=== PATIENT | male | born 1960 | race Caucasian/White ===

== ENCOUNTER 2017-04-18 21:52 | Emergency (ER) | payer BC, OTHER ==
[2017-04-18 22:15] LABS: Glucose,Whole Blood 113 mg/dL (75-99)
[2017-04-18] MEDS ORDERED: SODIUM CHLORIDE 0.9% 1,000 ML IV ONE ×2 (22:37)
--- NOTE | 2017-04-18 22:43 | ED ---
Altered Mental Status HPI - General Chief Complaint: Altered Mental Status Stated Complaint: Speech Issues, Loss of memory Time Seen by Provider: 04/18/17 22:28 Source: patient Mode of arrival: ambulatory Limitations: no limitations - History of Present Illness Initial Comments: This 57-year-old white male presents with some confusion. He states that he last remembers is leaving for work around 2:30 this afternoon. He then apparently did some work around the house but does not remember this. He states that he remembers waking up in the dark living room. He apparently text and his that he does not feel well. He apparently was quite confused. His told him to go to his brother's house but he d cannot remember where his brother lived. When he went outside he thought he lived in their old house. He did not recognize his van. He states that he is having very slow speech. He is able to get the words out but states that he has to think more about the correct words. He denies any weakness or paresthesias. He denies any chest pain, shortness of breath, abdominal pain, fevers, chills, or recent infections. He denies any drug or alcohol use. He does have a history of coronary artery disease with previous stents. He otherwise has been very healthy. He states that he was completely normal prior to this event today. He is feeling much improved at this time and is alert and oriented. No other complaints or modifying factors. - Related Data Home Medications Medication Instructions Recorded Confirmed Clopidogrel [Plavix] 75 mg PO DAILY 01/05/14 04/18/17 Enalapril [Vasotec] 5 mg PO DAILY 01/05/14 04/18/17 Atorvastatin [Lipitor] 20 mg PO DAILY 04/18/17 04/18/17 Joint Soother Otc 1 cap PO DAILY 04/18/17 04/18/17 Metoprolol Succinate (ER) [Toprol 25 mg PO DAILY 04/18/17 04/18/17 Xl] Allergies Allergy/AdvReac Type Severity Reaction Status Date / Time influenza virus vaccine, Allergy Unknown Verified 04/18/17 22:39 specific pneumococcal vaccine Allergy Unknown Verified 04/18/17 22:39 Review of Systems ROS Statement: Those systems with pertinent positive or pertinent negative responses have been documented in the HPI. ROS Other: All systems not noted in ROS Statement are negative. Past Medical History Past Medical History: Hyperlipidemia, Hypertension, Myocardial Infarction ([place]) Additional Past Medical History / Comment(s): [place] History of Any Multi-Drug Resistant Organisms: None Reported Past Surgical History: Heart Catheterization With Stent, Tonsillectomy Additional Past Surgical History / Comment(s): coronary stents x4 Past Psychological History: No Psychological Hx Reported Smoking Status: Former smoker Past Alcohol Use History: None Reported Past Drug Use History: None Reported General Exam - General Exam Comments Initial Comments: GENERAL: The patient is well nourished and well hydrated. VITAL SIGNS: Heart rate, blood pressure, respiratory rate reviewed as recorded in nurse's notes. EYES: Pupils are round and reactive. Extraocular movements are intact. No conjunctival / lid redness or swelling. ENT: No external evidence of injury, swelling, or ecchymosis. Airway is patent. Throat is clear. NECK: Nontender. No swelling or evidence of injury. No subcutaneous emphysema. Trachea is midline. No thyroid mass. HEART: Regular rate and rhythm. Good peripheral pulses. LUNGS/CHEST: Breath sounds clear and equal bilaterally. No rales, rhonchi, or wheezes. No ecchymosis, subcutaneous emphysema, or tenderness. ABDOMEN: Abdomen soft without tenderness. No palpable masses or organomegaly. No peritoneal signs. No abdominal wall swelling or ecchymosis. EXTREMITIES: No extremity tenderness. Normal muscle tone and function. No thoracolumbar tenderness. NEUROLOGIC: Sensation is grossly intact. Cranial nerve exam reveals face is symmetrical, tongue is midline, speech is clear. There is no lateralized weakness. SKIN: No abrasions or ecchymosis is noted. No induration or masses noted. PSYCHIATRIC: Alert and oriented. Appropriate behavior and judgment. Limitations: no limitations Course Vital Signs 04/18/17 04/18/17 04/19/17 22:00 23:39 00:55 Temperature 97.9 F 97.1 F L Pulse Rate 73 67 60 Respiratory 18 18 16 Rate Blood Pressure 118/73 119/83 111/68 O2 Sat by Pulse 98 98 98 Oximetry Medical Decision Making - Medical Decision Making The patient was seen and examined. All diagnostics were reviewed. The EKG shows a normal sinus rhythm at a rate of 66. There is no acute ST-T wave changes identified. The NM intervals 190, QRS duration is 84, and the QTc interval is 387. An IV is started and he is hydrated. The significant amount of lab work is completed and this is all essentially within normal limits. The patient also had a chest x-ray which did not show any acute abnormalities. The urine and urine drug screen are negative. Computed tomography scan of the brain did not show any acute abnormalities. It does show a degree of sinusitis and possible mastoiditis. He does not have any tenderness over the sinuses or his mastoids. He is feeling significantly improved with IV fluids. He states that all his symptoms have resolved on recheck. Exact cause of his confusion and amnesia to the event are not definitively determined. Is offered admission to the hospital for further observation and neurology consult but would prefer to be discharged home at this point. Return parameters are discussed. - Lab Data Result diagrams: 04/18/17 22:30 04/18/17 22:30 Lab Results 04/18/17 04/18/17 04/18/17 Range/Units 22:14 22:30 22:30 WBC 4.5 (3.8-10.6) k/uL RBC 5.01 (4.30-5.90) m/uL Hgb 15.5 (13.0-17.5) gm/dL Hct 47.0 (39.0-53.0) % MCV 93.9 (80.0-100.0) fL MCH 30.9 (25.0-35.0) pg MCHC 32.9 (31.0-37.0) g/dL RDW 13.4 (11.5-15.5) % Plt Count 166 (150-450) k/uL Neutrophils % 59 % Lymphocytes % 23 % Monocytes % 10 % Eosinophils % 5 % Basophils % 1 % Neutrophils # 2.7 (1.3-7.7) k/uL Lymphocytes # 1.0 (1.0-4.8) k/uL Monocytes # 0.5 (0-1.0) k/uL Eosinophils # 0.2 (0-0.7) k/uL Basophils # 0.1 (0-0.2) k/uL PT (9.0-12.0) sec INR (<1.2) APTT (22.0-30.0) sec Sodium 138 (137-145) mmol/L Potassium 4.2 (3.5-5.1) mmol/L Chloride 105 (98-107) mmol/L Carbon Dioxide 24 (22-30) mmol/L Anion Gap 9 mmol/L BUN 17 (9-20) mg/dL Creatinine 0.90 (0.66-1.25) mg/dL Est GFR (MDRD) Af Amer >60 (>60 ml/min/1.73 sqM) Est GFR (MDRD) Non-Af >60 (>60 ml/min/1.73 sqM) Glucose 112 H (74-99) mg/dL POC Glucose (mg/dL) 113 H (75-99) mg/dL POC Glu Clinical Psychology Professor ID Amina Pemberton Calcium 9.3 (8.4-10.2) mg/dL Phosphorus 2.8 (2.5-4.5) mg/dL Magnesium 2.0 (1.6-2.3) mg/dL Total Bilirubin 0.5 (0.2-1.3) mg/dL AST 21 (17-59) U/L ALT 41 (21-72) U/L Alkaline Phosphatase 99 (38-126) U/L Ammonia (<30) umol/L Total Protein 6.5 (6.3-8.2) g/dL Albumin 4.1 (3.5-5.0) g/dL TSH 1.620 (0.465-4.680) mIU/L Urine Color Urine Appearance (Clear) Urine pH (5.0-8.0) Ur Specific Taylor (1.001-1.035) Urine Protein (Negative) Urine Glucose (UA) (Negative) Urine Ketones (Negative) Urine Blood (Negative) Urine Nitrite (Negative) Urine Bilirubin (Negative) Urine Urobilinogen (<2.0) mg/dL Ur Leukocyte Esterase (Negative) Urine Opiates Screen (NotDetected) Ur Oxycodone Screen (NotDetected) Urine Methadone Screen (NotDetected) Ur Propoxyphene Screen (NotDetected) Ur Barbiturates Screen (NotDetected) U Tricyclic Antidepress (NotDetected) Ur Phencyclidine Scrn (NotDetected) Ur Amphetamines Screen (NotDetected) U Methamphetamines Scrn (NotDetected) U Benzodiazepines Scrn (NotDetected) Urine Cocaine Screen (NotDetected) U Marijuana (THC) Screen (NotDetected) 04/18/17 04/18/1704/18/17 Range/Units 22:30 22:30 23:00 WBC (3.8-10.6) k/uL RBC (4.30-5.90) m/uL Hgb (13.0-17.5) gm/dL Hct (39.0-53.0) % MCV (80.0-100.0) fL MCH (25.0-35.0) pg MCHC (31.0-37.0) g/dL RDW (11.5-15.5) % Plt Count (150-450) k/uL Neutrophils % % Lymphocytes % % Monocytes % % Eosinophils % % Basophils % % Neutrophils # (1.3-7.7) k/uL Lymphocytes # (1.0-4.8) k/uL Monocytes # (0-1.0) k/uL Eosinophils # (0-0.7) k/uL Basophils # (0-0.2) k/uL PT 11.3 (9.0-12.0) sec INR 1.1 (<1.2) APTT 23.5 (22.0-30.0) sec Sodium (137-145) mmol/L Potassium (3.5-5.1) mmol/L Chloride (98-107) mmol/L Carbon Dioxide (22-30) mmol/L Anion Gap mmol/L BUN (9-20) mg/dL Creatinine (0.66-1.25) mg/dL Est GFR (MDRD) Af Amer (>60 ml/min/1.73 sqM) Est GFR (MDRD) Non-Af (>60 ml/min/1.73 sqM) Glucose (74-99) mg/dL POC Glucose (mg/dL) (75-99) mg/dL POC Glu Clinical Psychology Professor ID Calcium (8.4-10.2) mg/dL Phosphorus (2.5-4.5) mg/dL Magnesium (1.6-2.3) mg/dL Total Bilirubin (0.2-1.3) mg/dL AST (17-59) U/L ALT (21-72) U/L Alkaline Phosphatase (38-126) U/L Ammonia 18 (<30) umol/L Total Protein (6.3-8.2) g/dL Albumin (3.5-5.0) g/dL TSH (0.465-4.680) mIU/L Urine Color Urine Appearance (Clear) Urine pH (5.0-8.0) Ur Specific Taylor (1.001-1.035) Urine Protein (Negative) Urine Glucose (UA) (Negative) Urine Ketones (Negative) Urine Blood (Negative) Urine Nitrite (Negative) Urine Bilirubin (Negative) Urine Urobilinogen (<2.0) mg/dL Ur Leukocyte Esterase (Negative) Urine Opiates Screen (NotDetected) Ur Oxycodone Screen (NotDetected) Urine Methadone Screen (NotDetected) Ur Propoxyphene Screen (NotDetected) Ur Barbiturates Screen (NotDetected) U Tricyclic Antidepress (NotDetected) Ur Phencyclidine Scrn (NotDetected) Ur Amphetamines Screen (NotDetected) U Methamphetamines Scrn (NotDetected) U Benzodiazepines Scrn (NotDetected) Urine Cocaine Screen (NotDetected) U Marijuana (THC) Screen (NotDetected) 04/18/17 Range/Units 23:44 WBC (3.8-10.6) k/uL RBC (4.30-5.90) m/uL Hgb (13.0-17.5) gm/dL Hct (39.0-53.0) % MCV (80.0-100.0) fL MCH (25.0-35.0) pg MCHC (31.0-37.0) g/dL RDW (11.5-15.5) % Plt Count (150-450) k/uL Neutrophils % % Lymphocytes % % Monocytes % % Eosinophils % % Basophils % % Neutrophils # (1.3-7.7) k/uL Lymphocytes # (1.0-4.8) k/uL Monocytes # (0-1.0) k/uL Eosinophils # (0-0.7) k/uL Basophils # (0-0.2) k/uL PT (9.0-12.0) sec INR (<1.2) APTT (22.0-30.0) sec Sodium (137-145) mmol/L Potassium (3.5-5.1) mmol/L Chloride (98-107) mmol/L Carbon Dioxide (22-30) mmol/L Anion Gap mmol/L BUN (9-20) mg/dL Creatinine (0.66-1.25) mg/dL Est GFR (MDRD) Af Amer (>60 ml/min/1.73 sqM) Est GFR (MDRD) Non-Af (>60 ml/min/1.73 sqM) Glucose (74-99) mg/dL POC Glucose (mg/dL) (75-99) mg/dL POC Glu Clinical Psychology Professor ID Calcium (8.4-10.2) mg/dL Phosphorus (2.5-4.5) mg/dL Magnesium (1.6-2.3) mg/dL Total Bilirubin (0.2-1.3) mg/dL AST (17-59) U/L ALT (21-72) U/L Alkaline Phosphatase (38-126) U/L Ammonia (<30) umol/L Total Protein (6.3-8.2) g/dL Albumin (3.5-5.0) g/dL TSH (0.465-4.680) mIU/L Urine Color Yellow Urine Appearance Clear (Clear) Urine pH 6.0 (5.0-8.0) Ur Specific Taylor 1.017 (1.001-1.035) Urine Protein Negative (Negative) Urine Glucose (UA) Negative (Negative) Urine Ketones Negative (Negative) Urine Blood Negative (Negative) Urine Nitrite Negative (Negative) Urine Bilirubin Negative (Negative) Urine Urobilinogen <2.0 (<2.0) mg/dL Ur Leukocyte Esterase Negative (Negative) Urine Opiates Screen Not Detected (NotDetected) Ur Oxycodone Screen Not Detected (NotDetected) Urine Methadone Screen Not Detected (NotDetected) Ur Propoxyphene Screen Not Detected (NotDetected) Ur Barbiturates Screen Not Detected (NotDetected) U Tricyclic Antidepress Not Detected (NotDetected) Ur Phencyclidine Scrn Not Detected (NotDetected) Ur Amphetamines Screen Not Detected (NotDetected) U Methamphetamines Scrn Not Detected (NotDetected) U Benzodiazepines Scrn Not Detected (NotDetected) Urine Cocaine Screen Not Detected (NotDetected) U Marijuana (THC) Screen Not Detected (NotDetected) Disposition Clinical Impression: Confusion Disposition: HOME SELF-CARE Condition: Good Instructions: Altered Mental Status (ED) Referrals: Hunter Campbell MD [Primary Care Provider] - 1-2 days Time of Disposition: 01:02
[2017-04-18 22:52] LABS: Basophils # (A) 0.1 k/uL (0-0.2); Basophils % (A) 1 %; CH 32.2; CHCM 34.5; Eosinophils # (A) 0.2 k/uL (0-0.7); Eosinophils % (A) 5 %; HDW 2.34; HGB 15.5 gm/dL (13.0-17.5); Luc # (Auto) 0.08; Luc % (Auto) 2; Lymphocytes % (A) 23 %; MCH 30.9 pg (25.0-35.0); MCHC 32.9 g/dL (31.0-37.0); MCV 93.9 fL (80.0-100.0); Mean Platelet Volume 8.3; Monocytes # (A) 0.5 k/uL (0-1.0); Monocytes % (A) 10 %; Neutrophils # (A) 2.7 k/uL (1.3-7.7); Neutrophils % (A) 59 %; RBC 5.01 m/uL (4.30-5.90); RDW 13.4 % (11.5-15.5); WBC 4.5 k/uL (3.8-10.6); WBC (Perox) 4.08
[2017-04-18 23:11] LABS: ALT 41 U/L (21-72); AST 21 U/L (17-59); Alkaline Phosphatase 99 U/L (38-126); Anion Gap 9 mmol/L; Blood Urea Nitrogen 17 mg/dL (9-20); Calcium 9.3 mg/dL (8.4-10.2); Carbon Dioxide 24 mmol/L (22-30); Chloride 105 mmol/L (98-107); Glucose 112 mg/dL (74-99); Non-African American GFR(MDRD) >60 (>60 ml/min/1.73 sqM); Phosphorous 2.8 mg/dL (2.5-4.5); Potassium 4.2 mmol/L (3.5-5.1); Sodium 138 mmol/L (137-145); Total Bilirubin 0.5 mg/dL (0.2-1.3); Total Protein 6.5 g/dL (6.3-8.2)
[2017-04-18 23:45] LABS: INR 1.1 (<1.2)
[2017-04-18 23:46] LABS: Prothrombin Time 11.3 sec (9.0-12.0)
[2017-04-18 23:51] LABS: Appearance,Urine Clear (Clear); Bilirubin,Urine Negative (Negative); Glucose,Urine (UA) Negative (Negative); Ketones,Urine Negative (Negative); Leukocyte Esterase,Urine Negative (Negative); Nitrite,Urine Negative (Negative); Protein,Urine Negative (Negative); Specific Gravity,Urine 1.017 (1.001-1.035); UA Billing (MACRO vs. MICRO) CHEM; Urobilinogen,Urine <2.0 mg/dL (<2.0)
--- NOTE | 2017-04-19 00:22 | XR ---
EXAM: XR Chest, 2 Views CLINICAL HISTORY: Reason: altered mental status TECHNIQUE: Frontal and lateral views of the chest. COMPARISON: No relevant prior studies available. FINDINGS: Lungs: Unremarkable. No consolidation. Pleural space: Unremarkable. No pneumothorax. Heart: Unremarkable. No cardiomegaly. Mediastinum: Unremarkable. Bones/joints: Unremarkable. IMPRESSION: Normal chest x-rays.
--- NOTE | 2017-04-19 00:28 | CT ---
EXAM: CT Head Without Intravenous Contrast CLINICAL HISTORY: Reason: altered mental status TECHNIQUE: Axial computed tomography images of the head/brain without intravenous contrast. CTDI is 57.40 mGy and DLP is 1064.30 mGy-cm. This CT exam was performed using one or more of the following dose reduction techniques: automated exposure control, adjustment of the mA and/or kV according to patient size, and/or use of iterative reconstruction technique. COMPARISON: No relevant prior studies available. FINDINGS: Brain: Unremarkable. No hemorrhage. No significant white matter disease. No edema. Ventricles: Unremarkable. No ventriculomegaly. Bones/joints: Unremarkable. No acute fracture. Soft tissues: Unremarkable. Sinuses: Unremarkable as visualized. No acute sinusitis. Mastoid air cells: Partial opacification of the ethmoid air cells is seen. 0.8 cm polyp versus mucous retention cyst in the left frontal sinus. Small right-sided mastoid effusion is noted. IMPRESSION: No evidence of acute transcortical infarct or acute intracranial hemorrhage. Partial opacification of ethmoid air cells, which may represent sinusitis. Small right-sided mastoid effusion. Clinical correlation for mastoiditis.
[2017-04-19 00:56] VITALS: BP 111/68; PULSE 60; RESP 16; TEMP 97.1
== END 2017-04-19 01:09 | disposition home or self-care (01) ==
LOC: EC 21:52
DX: R41.0 Disorientation, unspecified (principal); I10 Essential (primary) hypertension; E78.5 Hyperlipidemia, unspecified; I25.2 Old myocardial infarction; Z87.891 Personal history of nicotine dependence; Z79.01 Long term (current) use of anticoagulants; Z79.899 Other long term (current) drug therapy; Z88.7 Allergy status to serum and vaccine
CPT/HCPCS: 36415; 70450; 71020; 80053; 80306; 81003; 82140; 83735; 84100; 84443; 85025; 85610; 85730; 93005; 96360; 99285

== ENCOUNTER → 2021-12-04 | Outpatient (CLI) | payer OTHER ==
--- NOTE | 2021-12-04 14:51 | XR ---
Right foot. HISTORY: Pain following trauma. COMPARISON: 01/05/2014 TECHNIQUE: 3 views the right foot were obtained FINDINGS: There is no fracture, dislocation, intraosseous or intra-articular abnormality. There is no radiopaqu e foreign body or abnormal soft tissue calcification. Note is made of a plantar calcaneal spur. IMPRESSION: No evidence of acute trauma.
== END | disposition home or self-care (01) ==
LOC: RADXRMAIN 14:23
PROVIDERS: ATTEND Nurse Practitioner Family
DX: M25.571 Pain in right ankle and joints of right foot (principal)

== ENCOUNTER → 2022-04-30 | Outpatient (CLI) | payer OTHER ==
--- NOTE | 2022-04-30 18:04 | XR ---
EXAMINATION TYPE: XR shoulder complete RT DATE OF EXAM: 04/30/2022 Comparison: 08/31/2021 Clinical History: 62-year-old male [id number] Findings: Mild/moderate degenerative joint space narrowing at the AC joint. There may be some mild soft tissue swelling lateral to the acromion. Subacromial space is preserved though there is some bony sclerosis at the greater tuberosity. No acute fracture, subluxation, dislocation. Impression: There may be some mild soft tissue swelling lateral to the acromion. Query any signs/symptoms of a st rain of the deltoid origin here. 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 Some bony changes suggest underlying c hronic rotator cuff tendinopathy.
== END | disposition home or self-care (01) ==
LOC: RADXRMAIN 09:52
PROVIDERS: ATTEND Nurse Practitioner Family
DX: M19.011 Primary osteoarthritis, right shoulder (principal)

== ENCOUNTER → 2022-05-14 | Outpatient (CLI) | payer OTHER ==
--- NOTE | 2022-05-14 18:40 | MR ---
EXAMINATION TYPE: MR shoulder RT wo con DATE OF EXAM: 05/14/2022 6:23 PM COMPARISON: NONE HISTORY: Right shoulder pain. TECHNIQUE: Multiplanar multispin echo imaging of the right shoulder was performed. FINDINGS: Rotator cuff : Thinning and heterogeneity of the supraspinatus tendon compatible chronic tendinopathy . Partial undersurface tear at the critical zone measuring 8.5 mm. Remaining constituents of the rota tor cuff appear to be grossly intact. Bursa: No bursal effusion or thickening is seen. Musculature: There is no muscular tear, contusion, or atrophy. Acromioclavicular joint : Lateral downsloping of the acromion and subacromial spurring resulting in m oderate impingement. Moderate AC joint arthropathy. Osseous structures : There are no fractures or regions of abnormal bone marrow signal intensity. Long biceps tendon : Abnormal signal intra-articular biceps tendon which may reflect tendinosis and p artial tear. Glenohumeral Joint fluid : There is no glenohumeral joint effusion. Cartilage and Bone : No focal hyaline cartilage defects are noted. No Hill-Sachs, reverse Hill-Sachs, or bony Bankart lesions are seen. Labrum : There are no SLAP or soft tissue Bankart lesions. No paralabral cysts are seen. OTHER FINDINGS : Degenerative spurring of the greater tuberosity. IMPRESSION: 1. Tendinosis with partial undersurface tear supraspinatus tendon. 2. Subacromial impingement. 3. Intra-articular biceps tendon tendinosis with partial tear difficult to exclude.
== END | disposition home or self-care (01) ==
LOC: RADMRIMAIN 17:52
PROVIDERS: ATTEND Orthopaedic Surgery Sports Medicine
DX: M75.111 Incomplete rotator cuff tear or rupture of right shoulder, not specified as traumatic (principal)

== ENCOUNTER 2022-08-16 11:23 | Emergency (ER) | payer OTHER ==
[2022-08-16] MEDS ORDERED: CLINDAMYCIN 300 MG in DEXTROSE 5% IN WATER 50 ML IVPB STA ×2 (13:32)
[2022-08-16] MEDS ORDERED: MORPHINE SULFATE 4 MG/ML SYRINGE IVP STA (13:32)
[2022-08-16] MEDS ORDERED: DEXAMETHASONE SOD PHOSPHATE 4 MG/ML 1 ML VIAL IVP STA (13:32)
--- NOTE | 2022-08-16 13:44 | ED ---
General Adult HPI - General Chief complaint: Dental/Oral Stated complaint: dental infection Time Seen by Provider: 08/16/22 13:26 Source: patient, RN notes reviewed, old records reviewed Mode of arrival: ambulatory Limitations: no limitations - History of Present Illness Initial comments: Patient is a 62-year-old male who presents emergency Department complaining of dental pain following tooth removal. Patient had multiple teeth removed in the right upper jaw last week. States he is having now some right cheek tenderness and for pain control. Presents for further evaluation of this time. Denies any fevers. Denies any nasal congestion. Denies any ear pain, skull pain. Denies any blurry vision. Denies any difficulty breathing or swallowing. Denies any tongue swelling. Denies floor of the mouth swelling. Denies any neck stiffness or tightness. Presents for further evaluation at this time. - Related Data Home Medications Medication Instructions Recorded Confirmed Clopidogrel [Plavix] 75 mg PO DAILY 01/05/14 04/18/17 Enalapril [Vasotec] 5 mg PO DAILY 01/05/14 04/18/17 Atorvastatin [Lipitor] 20 mg PO DAILY 04/18/17 04/18/17 Joint Soother Otc 1 cap PO DAILY 04/18/17 04/18/17 Metoprolol Succinate (ER) [Toprol 25 mg PO DAILY 04/18/17 04/18/17 Xl] Previous Rx's Medication Instructions Recorded HYDROcodone/APAP 5-325MG [[place] 1 tab PO Q6HR PRN 3 Days #12 tab 08/16/22 5-325] clindamycin HCL 300 mg PO TID 7 Days #21 capsule 08/16/22 dexAMETHasone [Decadron] 4 mg PO DAILY 3 Days #3 tablet 08/16/22 Allergies Allergy/AdvReac Type Severity Reaction Status Date / Time influenza virus vaccine, Allergy Unknown Verified 08/16/22 12:28 specific pneumococcal vaccine Allergy Unknown Verified 08/16/22 12:28 Review of Systems ROS Statement: Those systems with pertinent positive or pertinent negative responses have been documented in the HPI. Review of Systems: CONST: Denies fever EYES: Denies blurry vision ENT: Endorses dental pain C/V: Denies Chest pain RESP: Denies shortness of breath GI: Denies abdominal pain : Denies dysuria SKIN: Denies rash. MSK: Denies joint pain. NEURO: Denies headache ROS Other: All systems not noted in ROS Statement are negative. Past Medical History Past Medical History: Hyperlipidemia, Hypertension, Myocardial Infarction ([place]) Additional Past Medical History / Comment(s): [place] History of Any Multi-Drug Resistant Organisms: None Reported Past Surgical History: Heart Catheterization With Stent, Tonsillectomy Additional Past Surgical History / Comment(s): coronary stents x4 Past Psychological History: No Psychological Hx Reported Smoking Status: Never smoker Past Alcohol Use History: None Reported Past Drug Use History: None Reported General Exam - General Exam Comments Initial Comments: General: Appears in no acute distress. HEAD: Normal with no signs of head trauma. EYES: PERRLA, EOMI, conjunctiva normal, no discharge. ENT: Hearing grossly intact, normal oropharynx.. Uvula mid line. Posterior oropharynx within normal limits. Tongue not swollen. No tenderness to palpation of the floor the mouth. Tenderness to palpation of the right max illary sinus. Some mild discharge that appears purulent from the right upper teeth extractions points. RESPIRATORY: Clear breath sounds bilaterally. No wheezes, rales, or rhonchi. C/V: Regular rate and rhythm. S1 and S2 auscultated, no edema, peripheral pulses 2+ and intact throughout ABD: Abd is soft, nontender, nondistended EXT: Normal range of motion, no obvious deformity SKIN: No rashes or lesions observed on exposed skin. NEURO: Alert and oriented 4. Limitations: no limitations Course Vital Signs 08/16/22 08/16/22 08/16/22 12:22 13:27 14:41 Temperature 98.0 F 97.6 F Pulse Rate 74 73 69 Respiratory 18 16 17 Rate Blood Pressure 175/104 185/103 164/104 O2 Sat by Pulse 94 L 98 95 Oximetry 08/16/22 15:08 Temperature 98.0 F Pulse Rate Respiratory Rate Blood Pressure O2 Sat by Pulse Oximetry Medical Decision Making - Medical Decision Making Based on the patient's presentation and physical exam, and concern for dental infection for the patient. Does not appear to have any signs of Thomas angina. I'm concerned for possible sinus involvement at this time. Cannot rule out other cellulitic components. No neurovascular deficits. We will obtain CT imaging the face as well as basic labs. He will be given analgesia, IV steroids, as well as fluids. He will also be given a dose of clindamycin. He was in agreement this plan. He was on Augmentin which does not appear to be helping his symptoms. Vital signs within acceptable limits. CT imaging is interpreted by myself reveals the recent teeth extractions, with no obvious abscess or worsening infection. Radiology did note right mastoid air cell fluid levels and recommended evaluation for mastoiditis. I did update the patient, and he has no tenderness over the right mastoid bone. Patient's laboratory studies are within acceptable limits. We discussed his workup. I would like to switch anabiotic to clindamycin and started him on steroids at home. He was in agreement with this plan. He'll follow-up with his dentist in the next few days. He'll be discharged home this time. I will provide the patient with a prescription for clindamycin, [place], Decadron. I instructed the patient to follow up with their PCP in the next 1-3 days. I explained that the patient should return to the emergency department if they experience any worsening symptoms. Strict return precautions were discussed with the patient. The patient expressed understanding of these instructions. I answered all questions that the patient had. The patient was discharged home in good condition with their prescriptions and follow up information. - Lab Data Result diagrams: 08/16/22 13:35 08/16/22 13:35 Lab Results 08/16/22 08/16/22 Range/Units 13:35 13:35 WBC 6.7 (3.8-10.6) k/uL RBC 5.98 H (4.30-5.90) m/uL Hgb 18.5 H (13.0-17.5) gm/dL Hct 56.4 H (39.0-53.0) % MCV 94.4 (80.0-100.0) fL MCH 30.9 (25.0-35.0) pg MCHC 32.7 (31.0-37.0) g/dL RDW 12.3 (11.5-15.5) % Plt Count 222 (150-450) k/uL MPV 8.2 Neutrophils % 77 % Lymphocytes % 15 % Monocytes % 5 % Eosinophils % 2 % Basophils % 1 % Neutrophils # 5.2 (1.3-7.7) k/uL Lymphocytes # 1.0 (1.0-4.8) k/uL Monocytes # 0.3 (0-1.0) k/uL Eosinophils # 0.1 (0-0.7) k/uL Basophils # 0.0 (0-0.2) k/uL Sodium 139 (137-145) mmol/L Potassium 5.1 (3.5-5.1) mmol/L Chloride 107 (98-107) mmol/L Carbon Dioxide 23 (22-30) mmol/L Anion Gap 9 mmol/L BUN 17 (9-20) mg/dL Creatinine 0.89 (0.66-1.25) mg/dL Est GFR (CKD-EPI)AfAm >90 (>60 ml/min/1.73 sqM) Est GFR (CKD-EPI)NonAf >90 (>60 ml/min/1.73 sqM) Glucose 90 (74-99) mg/dL Calcium 9.7 (8.4-10.2) mg/dL Disposition Clinical Impression: Tooth infection Disposition: HOME SELF-CARE Condition: Good Instructions (If sedation given, give patient instructions): Toothache (ED) Prescriptions: clindamycin HCL 300 mg PO TID 7 Days #21 capsule dexAMETHasone [Decadron] 4 mg PO DAILY 3 Days #3 tablet HYDROcodone/APAP 5-325MG [[place] 5-325] 1 tab PO Q6HR PRN 3 Days #12 tab PRN Reason: Pain Is patient prescribed a controlled substance at d/c from ED?: Yes When asked, does pt state using other controlled substances?: No If prescribed controlled substance>3 days was MAPS reviewed?: Prescribed <3 Days If opioid is for acute pain is fill amount 7 days or less?: Yes If Rx opioid, was Start Talking consent form obtained?: Yes Referrals: Harley Khan DO [Primary Care Provider] - 1-2 days Time of Disposition: 14:45
[2022-08-16 13:48] LABS: Basophils % (A) 1 %; Eosinophils # (A) 0.1 k/uL (0-0.7); Eosinophils % (A) 2 %; HGB 18.5 gm/dL (13.0-17.5); Lymphocytes % (A) 15 %; MCH 30.9 pg (25.0-35.0); MCHC 32.7 g/dL (31.0-37.0); MCV 94.4 fL (80.0-100.0); Mean Platelet Volume 8.2; Monocytes # (A) 0.3 k/uL (0-1.0); Monocytes % (A) 5 %; Neutrophils # (A) 5.2 k/uL (1.3-7.7); Neutrophils % (A) 77 %; Platelet Count 222 k/uL (150-450); RBC 5.98 m/uL (4.30-5.90); RDW 12.3 % (11.5-15.5); WBC 6.7 k/uL (3.8-10.6)
[2022-08-16 13:57] LABS: African American GFR (CKD) >90 (>60 ml/min/1.73 sqM); Anion Gap 9 mmol/L; Blood Urea Nitrogen 17 mg/dL (9-20); Calcium 9.7 mg/dL (8.4-10.2); Carbon Dioxide 23 mmol/L (22-30); Chloride 107 mmol/L (98-107); Glucose 90 mg/dL (74-99); Non-African American GFR(CKD) >90 (>60 ml/min/1.73 sqM); Sodium 139 mmol/L (137-145)
[2022-08-16 14:05] LABS: HCT 56.4 % (39.0-53.0)
[2022-08-16 14:08] LABS: Potassium 5.1 mmol/L (3.5-5.1)
--- NOTE | 2022-08-16 14:35 | CT ---
EXAMINATION TYPE: CT soft tissue neck w con DATE OF EXAM: 08/16/2022 COMPARISON: None HISTORY: 62-year-old male Right sided maxilla pain after having four teeth extracted. TECHNIQUE: Contiguous axial scanning of the soft tissues of the neck performed with IV Contrast, sukumar ent injected with 100ml mL of Isovue 300. Coronal and sagittal reconstructions performed. CT DLP: 482.4 mGycm Automated exposure control for dose reduction was used. FINDINGS: Visualized intracranial structures, orbits and globes, paranasal sinuses, and left mastoid air cells appear clear. There is partial opacification of inferior right mastoid air cells. Correlate for any m astoid pain to exclude mastoiditis. Rightward nasal septal deviation. Combination of air and fluid involving for right mandibular teeth sockets. Incidental cavity involvin g the left maxillary canine. The TMJs are intact. The nasopharynx and oropharynx appear intact. There is some posterior impression due to retropharynge al course of the right ICA. Glottic and subglottic structures as well as the tracheal column appear c lear. Visualized upper lungs show mild biapical pleural parenchymal scarring. The thyroid, submandibular, and parotid glands appear satisfactory. Moderate spondylotic change C5-C7 levels. IMPRESSION: 1. COMBINATION OF AIR AND FLUID INVOLVING FOUR EMPTY RIGHT MANDIBULAR TEETH SOCKETS. FINDINGS COMPATI BLE WITH RECENT TEETH EXTRACTION . NO DISCRETE ABSCESS OR SUBCUTANEOUS SOFT TISSUE SWELLING CLEARLY I DENTIFIED. 2. INCIDENTAL DENTAL CAR LEFT MAXILLARY CANINE. 3. SMALL AMOUNT OF FLUID INFERIOR RIGHT MASTOID AIR CELLS. CORRELATE FOR ANY MASTOID PAIN TO EXCLUDE MASTOIDITIS.
[2022-08-16 14:41] VITALS: BP 164/104; PULSE 69; RESP 17
[2022-08-16 15:08] VITALS: TEMP 98
== END 2022-08-16 15:13 | disposition home or self-care (01) ==
LOC: EC 11:23
DX: K04.7 Periapical abscess without sinus (principal); I10 Essential (primary) hypertension; I25.2 Old myocardial infarction; E78.5 Hyperlipidemia, unspecified; Z88.7 Allergy status to serum and vaccine; Z79.899 Other long term (current) drug therapy
CPT/HCPCS: 36415; 80048; 85025; 87040; 70491; 99284; 96365; 96375 ×2; J2270; J1100; Q9967

== ENCOUNTER → 2023-03-09 | Outpatient (CLI) | payer OTHER ==
--- NOTE | 2023-03-10 07:39 | US ---
EXAMINATION TYPE: US prostate transrectal DATE OF EXAM: 03/09/2023 COMPARISON: NONE CLINICAL INDICATION: Male, 62 years old with history of R97.20; Elevated PSA This examination was performed using the transrectal probe. EXAM MEASUREMENTS: Gland Size: 5.2 x 2.9 x 4.8cm Volume: 37.3ml Predicted PSA: 4.48 Actual PSA (if available):5.27 Heterogeneous gland. No evidence of discrete nodule within peripheral zone IMPRESSION: Mild prostate glandular enlargement. No focal lesion identified. Predicted PSA = volume x 0.12 ng/ml Calculated Volume = 0.5236 x L x W x H
== END | disposition home or self-care (01) ==
LOC: RADUSWWP 07:57
PROVIDERS: ATTEND Family Medicine
DX: N40.0 Benign prostatic hyperplasia without lower urinary tract symptoms (principal); R97.20 Elevated prostate specific antigen [PSA]
CPT/HCPCS: 76872

== ENCOUNTER 2023-08-10 04:25 | Inpatient (IN) | payer OTHER ==
[2023-08-10] MEDS ORDERED: SODIUM CHLORIDE 0.9% 1,000 ML IV STA (04:27)
[2023-08-10] MEDS ORDERED: HEPARIN SODIUM 1,000 UN/ML (10ML VL) IV ONE (04:27)
[2023-08-10] MEDS ORDERED: MORPHINE SULFATE 4 MG/ML SYRINGE IVP STA (04:28)
[2023-08-10] MEDS ORDERED: HEPARIN SOD,PORK IN 0.45% NACL 25,000 UNIT in 0.45% NACL 1 250ML.BAG IV SCH (04:30)
--- NOTE | 2023-08-10 04:37 | ED ---
General Adult HPI - General Chief complaint: Arrhythmia/Palpitations Stated complaint: STEMI Time Seen by Provider: 08/10/23 04:27 Source: patient, EMS, RN notes reviewed, old records reviewed Mode of arrival: EMS - History of Present Illness Initial comments: Patient is a 63-year-old male presents from his apartment as a STEMI activation out of hospital. Has been having chest pain for multiple hours. Describes it as substernal, crushing. Attempted to obtain relief with nitroglycerin tablets at home without much improvement. Does have a history of 7 cardiac stents. His tory of hypertension and hyperlipidemia. Called EMS. EKG showed STEMI. Transferred him to the hospital for further evaluation. Already received aspirin. Patient still complaining of chest pain. Denies any shortness of breath, nausea, vomiting. Pain does not radiate. Denies headaches. Is not on blood thinners other than Plavix. Presents for further evaluation at this time. - Related Data Home Medications Medication Instructions Recorded Confirmed Clopidogrel [Plavix] 75 mg PO DAILY 01/05/14 04/18/17 Enalapril [Vasotec] 5 mg PO DAILY 01/05/14 04/18/17 Atorvastatin [Lipitor] 20 mg PO DAILY 04/18/17 04/18/17 Joint Soother Otc 1 cap PO DAILY 04/18/17 04/18/17 Metoprolol Succinate (ER) [Toprol 25 mg PO DAILY 04/18/17 04/18/17 Xl] Previous Rx's Medication Instructions Recorded HYDROcodone/APAP 5-325MG [[place] 1 tab PO Q6HR PRN 3 Days #12 tab 08/16/22 5-325] clindamycin HCL 300 mg PO TID 7 Days #21 capsule 08/16/22 dexAMETHasone [Decadron] 4 mg PO DAILY 3 Days #3 tablet 08/16/22 Allergies Allergy/AdvReac Type Severity Reaction Status Date / Time influenza virus vaccine, Allergy Unknown Verified 08/16/22 12:28 specific pneumococcal vaccine Allergy Unknown Verified 08/16/22 12:28 Review of Systems ROS Statement: Those systems with pertinent positive or pertinent negative responses have been documented in the HPI. Review of Systems: CONST: Denies fever EYES: Denies blurry vision ENT: Denies nasal congestion C/V: Endorses chest pain RESP: Denies shortness of breath GI: Denies abdominal pain : Denies dysuria SKIN: Denies rash. MSK: Denies joint pain. NEURO: Denies headache ROS Other: All systems not noted in ROS Statement are negative. Past Medical History Past Medical History: Hyperlipidemia, Hypertension, Myocardial Infarction ([place]) Additional Past Medical History / Comment(s): [place] History of Any Multi-Drug Resistant Organisms: None Reported Past Surgical History: Heart Catheterization With Stent, Tonsillectomy Additional Past Surgical History / Comment(s): coronary stents x4 Past Psychological History: No Psychological Hx Reported Smoking Status: Never smoker Past Alcohol Use History: None Reported Past Drug Use History: None Reported General Exam - General Exam Comments Initial Comments: General: Appears in moderate distress. Mildly diaphoretic HEAD: Normal with no signs of head trauma. EYES: PERRLA, EOMI, conjunctiva normal, no discharge. ENT: Hearing grossly intact, normal oropharynx. RESPIRATORY: Clear breath sounds bilaterally. No wheezes, rales, or rhonchi. C/V: Regular rate and rhythm. S1 and S2 auscultated, no edema, peripheral pulses 2+ and intact throughout ABD: Abd is soft, nontender, nondistended EXT: Normal range of motion, no obvious deformity SKIN: No rashes or lesions observed on exposed skin. NEURO: Alert and oriented x 4. Cranial nerves II-XII intact. No focal sensory or strength deficits. Course Vital Signs 08/10/23 08/10/23 08/10/23 04:26 04:30 04:35 Temperature 97.5 F L Pulse Rate 80 79 79 Respiratory 24 20 20 Rate Blood Pressure 180/109 189/110 189/100 O2 Sat by Pulse 99 100 100 Oximetry Medical Decision Making - Medical Decision Making Was pt. sent in by a medical professional or institution (, PA, SEWING MACHINE OPERATOR SEMIAUTOMATIC, urgent care, hospital, or half-way...) When possible be specific @ -No Did you speak to anyone other than the patient for history (EMS, parent, family, police, friend...)? What history was obtained from this source @ -No Did you review nursing and triage notes (agree or disagree)? Why? @ -I reviewed and agree with nursing and triage notes Were old charts reviewed (outside hosp., previous admission, EMS record, old EKG, old radiological studies, urgent care reports/EKG's, half-way records)? Report findings @ -Old charts reviewed Differential Diagnosis (chest pain, altered mental status, abdominal pain women, abdominal pain men, vaginal bleeding, weakness, fever, dyspnea, syncope, headache, dizziness, GI bleed, back pain, seizure, CVA, palpatations, mental health, musculoskeletal)? @ -Differential Chest Pain: Stable Angina, Unstable Angina, STEMI, NSTEMI Aortic Dissection, Pneumothorax, Musculoskeletal, Esophageal Spasm GERD, Cholecystitis, Pancreatitis, Zoster, this is not meant to be an all-inclusive list. EKG interpreted by me (3pts min.). @ -As above X-rays interpreted by me (1pt min.). @ -Chest X-ray reveals no obvious acute cardiopulmonary process. CT interpreted by me (1pt min.). @ -None done U/S interpreted by me (1pt. min.). @ -None done What testing was considered but not performed or refused? (CT, X-rays, U/S, labs)? Why? @ -None What meds were considered but not given or refused? Why? @ -Considered aspirin however patient already received 324 mg of aspirin from EMS. Considered nitroglycerin tablets however patient took 4 already without relief. Did you discuss the management of the patient with other professionals (professionals i.e. , PA, SEWING MACHINE OPERATOR SEMIAUTOMATIC, lab, RT, psych nurse, social services manager, employment representative, teacher, project officer, case management director)? Give summary @ - I spoke with the admitting team, lizbeth of [facility] who accepted the admission. Was smoking cessation discussed for >3mins.? @ -No Was critical care preformed (if so, how long)? @ -yes, 18 min Were there social determinants of health that impacted care today? How? (Homelessness, low income, unemployed, alcoholism, drug addiction, transportation, low edu. Level, literacy, decrease access to med. care, half-way, rehab)? @ -No Was there de-escalation of care discussed even if they declined (Discuss DNR or withdrawal of care, Hospice)? DNR status @ -No What co-morbidities impacted this encounter? (DM, HTN, Smoking, COPD, CAD, Cancer, CVA, ARF, Chemo, Hep., AIDS, mental health diagnosis, sleep apnea, morbid obesity)? @ -CAD. Multiple cardiac stents. Was patient admitted / discharged? Hospital course, mention meds given and route, prescriptions, significant lab abnormalities, going to OR and other pertinent info. @ -Based on the patient's presentation and physical exam, I'm concerned for STEMI. Prehospital EKG transmitted over and showed significant ST segment elevations in leads V2 through V4. Out of hospital STEMI alert was activated. I spoke with on-call cardiology Dr. Bell who was in agreement with the plan. Upon arrival, patient's vital signs are within except limits. He is placed on nasal cannula oxygen, placed on property assessment monitor as well as pads. He'll be given a 1 L fluid bolus. He'll be started on IV heparin. Patient already received aspirin. Nitroglycerin tablets had no effect on patient's pain and therefore he will be administered IV morphine. Repeat EKG demonstrates ST segment el evations in V3 through V5 as well as mild elevation in aVF as well. Patient was taken to [facility] at 0445. Labs remarkable for an elevated troponin of 0.106 which was returned after patient is already in [facility]. I spoke with the admitting team, lizbeth of [facility] who accepted the admission. Undiagnosed new problem with uncertain prognosis? @ -No Drug Therapy requiring intensive monitoring for toxicity (Heparin, Nitro, Insulin, Cardizem)? @ -No Were any procedures done? @ -No Diagnosis/symptom? @ -STEMI Acute, or Chronic, or Acute on Chronic? @ -Acute Uncomplicated (without systemic symptoms) or Complicated (systemic symptoms)? @ -Complicated Side effects of treatment? @ -No Exacerbation, Progression, or Severe Exacerbation? @ -No Poses a threat to life or bodily function? How? (Chest pain, [place], [place], pneumonia, PE, COPD, DKA, ARF, appy, cholecystitis, CVA, Diverticulitis, Homicidal, Suicidal, threat to staff... and all critical care pts) @ -yes - Lab Data Result diagrams: 08/10/23 04:33 08/10/23 04:33 Lab Results 08/10/23 08/10/23 08/10/23 Range/Units 04:33 04:33 04:33 WBC 7.0 (3.8-10.6) k/uL RBC 5.43 (4.30-5.90) m/uL Hgb 17.6 H (13.0-17.5) gm/dL Hct 53.0 (39.0-53.0) % MCV 97.6 (80.0-100.0) fL MCH 32.4 (25.0-35.0) pg MCHC 33.2 (31.0-37.0) g/dL RDW 12.1 (11.5-15.5) % Plt Count 195 (150-450) k/uL MPV 8.1 Neutrophils % 57 % Lymphocytes % 28 % Monocytes % 8 % Eosinophils % 4 % Basophils % 1 % Neutrophils # 4.0 (1.3-7.7) k/uL Lymphocytes # 2.0 (1.0-4.8) k/uL Monocytes # 0.5 (0-1.0) k/uL Eosinophils # 0.3 (0-0.7) k/uL Basophils # 0.0 (0-0.2) k/uL PT 11.5 (10.0-12.5) sec INR 1.1 (<1.2) APTT 23.6 (22.0-30.0) sec Sodium 137 (137-145) mmol/L Potassium 4.0 (3.5-5.1) mmol/L Chloride 104 (98-107) mmol/L Carbon Dioxide 25 (22-30) mmol/L Anion Gap 8 mmol/L BUN 12 (9-20) mg/dL Creatinine 1.03 (0.66-1.25) mg/dL Est GFR (CKD-EPI)AfAm 89 (>60 ml/min/1.73 sqM) Est GFR (CKD-EPI)NonAf 77 (>60 ml/min/1.73 sqM) Glucose 122 H (74-99) mg/dL Calcium 9.6 (8.4-10.2) mg/dL Total Bilirubin 0.6 (0.2-1.3) mg/dL AST 25 (17-59) U/L ALT 23 (4-49) U/L Alkaline Phosphatase 75 (38-126) U/L Troponin I (0.000-0.034) ng/mL Total Protein 6.2 L (6.3-8.2) g/dL Albumin 3.8 (3.5-5.0) g/dL 08/10/23 Range/Units 04:33 WBC (3.8-10.6) k/uL RBC (4.30-5.90) m/uL Hgb (13.0-17.5) gm/dL Hct (39.0-53.0) % MCV (80.0-100.0) fL MCH (25.0-35.0) pg MCHC (31.0-37.0) g/dL RDW (11.5-15.5) % Plt Count (150-450) k/uL MPV Neutrophils % % Lymphocytes % % Monocytes % % Eosinophils % % Basophils % % Neutrophils # (1.3-7.7) k/uL Lymphocytes # (1.0-4.8) k/uL Monocytes # (0-1.0) k/uL Eosinophils # (0-0.7) k/uL Basophils # (0-0.2) k/uL PT (10.0-12.5) sec INR (<1.2) APTT (22.0-30.0) sec Sodium (137-145) mmol/L Potassium (3.5-5.1) mmol/L Chloride (98-107) mmol/L Carbon Dioxide (22-30) mmol/L Anion Gap mmol/L BUN (9-20) mg/dL Creatinine (0.66-1.25) mg/dL Est GFR (CKD-EPI)AfAm (>60 ml/min/1.73 sqM) Est GFR (CKD-EPI)NonAf (>60 ml/min/1.73 sqM) Glucose (74-99) mg/dL Calcium (8.4-10.2) mg/dL Total Bilirubin (0.2-1.3) mg/dL AST (17-59) U/L ALT (4-49) U/L Alkaline Phosphatase (38-126) U/L Troponin I 0.106 H* (0.000-0.034) ng/mL Total Protein (6.3-8.2) g/dL Albumin (3.5-5.0) g/dL - EKG Data -: EKG Interpreted by Me EKG Comments: 12-lead Electrocardiogram Interpretation Note EKG was reviewed and interpreted by myself. 12-lead ECG performed at 0426 is interpreted by me as revealing normal sinus rhythm at a rate of 74 beats per minute. [place] is normal. [place] interval is 190 ms, QRS duration is 86 ms, QTc is [address] segment elevations in leads V3 through V5. Also as well as in aVF.. R wave progression across the precordium was delayed. By my interpretation, this EKG represents a STEMI.. Critical Care Time Critical Care Time: Yes Total Critical Care Time: 18 Disposition Clinical Impression: STEMI (ST elevation myocardial infarction) Disposition: ADMITTED IP TO THIS HOSP Condition: Serious Time of Disposition: 04:45
[2023-08-10] MEDS ORDERED: NALOXONE 0.4 MG/ML 1 ML VIAL IV PRN (04:42)
[2023-08-10 04:45] LABS: Basophils % (A) 1 %; Eosinophils # (A) 0.3 k/uL (0-0.7); Eosinophils % (A) 4 %; HGB 17.6 gm/dL (13.0-17.5); Lymphocytes % (A) 28 %; MCH 32.4 pg (25.0-35.0); MCHC 33.2 g/dL (31.0-37.0); MCV 97.6 fL (80.0-100.0); Mean Platelet Volume 8.1; Monocytes # (A) 0.5 k/uL (0-1.0); Monocytes % (A) 8 %; Neutrophils % (A) 57 %; Platelet Count 195 k/uL (150-450); RBC 5.43 m/uL (4.30-5.90); RDW 12.1 % (11.5-15.5)
[2023-08-10 04:52] LABS: ALT 23 U/L (4-49); AST 25 U/L (17-59); African American GFR (CKD) 89 (>60 ml/min/1.73 sqM); Albumin 3.8 g/dL (3.5-5.0); Alkaline Phosphatase 75 U/L (38-126); Anion Gap 8 mmol/L; Blood Urea Nitrogen 12 mg/dL (9-20); Calcium 9.6 mg/dL (8.4-10.2); Carbon Dioxide 25 mmol/L (22-30); Chloride 104 mmol/L (98-107); Glucose 122 mg/dL (74-99); Non-African American GFR(CKD) 77 (>60 ml/min/1.73 sqM); Sodium 137 mmol/L (137-145); Total Bilirubin 0.6 mg/dL (0.2-1.3); Total Protein 6.2 g/dL (6.3-8.2)
[2023-08-10] MEDS ORDERED: IV FLUID CONTINUATION 1,000 ML IV ONE (04:52)
[2023-08-10] MEDS ORDERED: VERAPAMIL 2.5 MG/ML 2 ML AMP ONE (04:53)
[2023-08-10] MEDS ORDERED: fentaNYL (PF) 50 MCG/ML 2 ML AMP ONE (04:54)
[2023-08-10] MEDS ORDERED: HEPARIN SODIUM 1,000 UN/ML (10ML VL) ONE (04:54)
[2023-08-10] MEDS ORDERED: MORPHINE SULFATE 4 MG/ML SYRINGE ONE (04:58)
[2023-08-10] MEDS ORDERED: MORPHINE SULFATE 4 MG/ML SYRINGE IVP ONE (05:01)
[2023-08-10] MEDS ORDERED: LIDOCAINE 1% INJ 10MG/ML (20 ML MDV) SQ ONE (05:08)
[2023-08-10] MEDS: MIDAZOLAM 2 MG/2 ML VIAL IVP ONE ×2 (05:10→05:21)
[2023-08-10] MEDS ORDERED: VERAPAMIL SYRINGE (5 MG/10 ML) INTRAARTER ONE (05:10)
--- NOTE | 2023-08-10 05:10 | P.CRDCN ---
History of Present Illness History of present illness: This is Dr. Bell dictating a consult on this patient The patient was interviewed and examined IMPRESSION / ASSESSMENT: Acute inferior ST elevation [place] Onset and a half to 2 hours back prior to admission Intermittent chest discomfort for the last 2-3 days Past history of coronary artery disease status post stenting in the [facility] PLAN: Emergent coronary angiography and intervention HPI Patient has been experiencing recurrent chest discomfort for the last 2-3 days The pain became severe and continuous for the last 2 hours Upon admission his telemetry EKG showed ST elevation anteriorly with Q waves in V1 and V2 Blood pressure was elevated He was on IV heparin when I saw him He has a history of coronary stenting, at least 7 in the past. This was performed in the [facility] ROS: No fever chills or rigors, no cough, phlegm or expectoration, no nausea, vomiting or diarrhea, no hematuria, dysuria, no musculoskeletal complaints, no strokes or seizures, no skin lesions. EXAMINATION: Elevated blood pressure, heart rate 100 mmHg, pulse rate in 70s Afebrile Normal heart sounds no murmurs Lungs clear muscle or Abdomen soft Right femoral pulse is bounding REVIEW OF LABS, ECG & MEDICAL DATA White count 7000, hemoglobin 17.6 Platelet count 195,000 Normal electrolytes Normal renal function Past Medical History Past Medical History: Hyperlipidemia, Hypertension, Myocardial Infarction ([place]) Additional Past Medical History / Comment(s): [place] History of Any Multi-Drug Resistant Organisms: None Reported Past Surgical History: Heart Catheterization With Stent, Tonsillectomy Additional Past Surgical History / Comment(s): coronary stents x4 Past Psychological History: No Psychological Hx Reported Smoking Status: Never smoker Past Alcohol Use History: None Reported Past Drug Use History: None Reported Medications and Allergies Home Medications Medication Instructions Recorded Confirmed Type Clopidogrel [Plavix] 75 mg PO DAILY 01/05/14 04/18/17 History Enalapril [Vasotec] 5 mg PO DAILY 01/05/14 04/18/17 History Atorvastatin [Lipitor] 20 mg PO DAILY 04/18/17 04/18/17 History Joint Soother Otc 1 cap PO DAILY 04/18/17 04/18/17 History Metoprolol Succinate (ER) [Toprol 25 mg PO DAILY 04/18/17 04/18/17 History Xl] HYDROcodone/APAP 5-325MG [[place] 1 tab PO Q6HR PRN 3 Days #12 tab 08/16/22 Rx 5-325] clindamycin HCL 300 mg PO TID 7 Days #21 capsule 08/16/22 Rx dexAMETHasone [Decadron] 4 mg PO DAILY 3 Days #3 tablet 08/16/22 Rx Allergies Allergy/AdvReac Type Severity Reaction Status Date / Time influenza virus vaccine, Allergy Unknown Verified 08/16/22 12:28 specific pneumococcal vaccine Allergy Unknown Verified 08/16/22 12:28 Physical Exam Vitals: Vital Signs Temp Pulse Resp BP Pulse Ox 08/10/23 04:35 79 20 189/100 100 08/10/23 04:30 79 20 189/110 100 08/10/23 04:26 97.5 F L 80 24 180/109 99 Intake and Output 08/09/23 08/09/23 08/10/23 14:59 22:59 06:59 Other: Weight 86.183 kg Results 08/10/23 04:33 08/10/23 04:33 Cardiac Enzymes 08/10/23 Range/Units 04:33 AST 25 (17-59) U/L CBC 08/10/23 Range/Units 04:33 WBC 7.0 (3.8-10.6) k/uL RBC 5.43 (4.30-5.90) m/uL Hgb 17.6 H (13.0-17.5) gm/dL Hct 53.0 (39.0-53.0) % Plt Count 195 (150-450) k/uL Comprehensive Metabolic Panel 08/10/23 Range/Units 04:33 Sodium 137 (137-145) mmol/L Potassium 4.0 (3.5-5.1) mmol/L Chloride 104 (98-107) mmol/L Carbon Dioxide 25 (22-30) mmol/L BUN 12 (9-20) mg/dL Creatinine 1.03 (0.66-1.25) mg/dL Glucose 122 H (74-99) mg/dL Calcium 9.6 (8.4-10.2) mg/dL AST 25 (17-59) U/L ALT 23 (4-49) U/L Alkaline Phosphatase 75 (38-126) U/L Total Protein 6.2 L (6.3-8.2) g/dL Albumin 3.8 (3.5-5.0) g/dL Current Medications Generic Name Dose Route Start Last Admin Trade Name Freq PRN Reason Stop Dose Admin Sodium Chloride 1,000 mls @ 999 mls/hr 08/10/23 04:27 08/10/23 04:32 Saline 0.9% IV 08/10/23 05:27 999 mls/hr .Q1H1M STA Administration Heparin Sodium/Sodium Chloride 250 mls @ 10.32 mls/hr 08/10/23 04:30 08/10/23 04:35 25,000 unit/ Sodium Chloride IV 12 units/kg/hr .Q24H LUCA 10.32 mls/hr Administration Protocol 12 UNITS/KG/HR Naloxone HCl 0.2 mg 08/10/23 04:42 Naloxone 0.4 Mg/Ml 1 Ml Vial IV Q2M PRN Opioid Reversal Intake and Output 08/09/23 08/09/23 08/10/23 14:59 22:59 06:59 Other: Weight 86.183 kg Patient Weight 08/10/23 06:59 Weight 86.183 kg 08/10/23 04:33 08/10/23 04:33
[2023-08-10] MEDS: HEPARIN SODIUM 1,000 UN/ML (10ML VL) IV ONE ×3 (05:11→05:42)
[2023-08-10] MEDS ORDERED: CLOPIDOGREL 75 MG TAB ONE (05:16)
[2023-08-10] MEDS ORDERED: CLOPIDOGREL 75 MG TAB PO ONE (05:22)
[2023-08-10] MEDS ORDERED: fentaNYL (PF) 50 MCG/ML 2 ML AMP IVP ONE (05:22)
[2023-08-10 05:28] LABS: INR 1.1 (<1.2); Partial Thromboplastin Time 23.6 sec (22.0-30.0); Prothrombin Time 11.5 sec (10.0-12.5)
[2023-08-10] MEDS ORDERED: IOPAMIDOL-370 100ML BTL INJ ONE (05:42)
[2023-08-10] MEDS ORDERED: RX INFO: IV CONTRAST WAS GIVEN 1 EACH MISC MISCELLANE PRN (05:54)
[2023-08-10] MEDS ORDERED: NITROGLYCERIN SL TABS 0.4 MG TAB SUBLINGUAL PRN (05:54)
[2023-08-10] MEDS ORDERED: ATROPINE SULFATE 0.1 MG/ML 10ML SYRINGE IV PRN (05:54)
[2023-08-10] MEDS ORDERED: MAG HYDROX/AL HYDROX/SIMETH 30 ML CUP PO PRN (05:54)
[2023-08-10] MEDS ORDERED: SODIUM CHLORIDE 0.9% 1,000 ML in EMPTY BAG 1 BAG IV SCH (06:00)
--- NOTE | 2023-08-10 06:02 | P.PCN ---
Operative Findings: CARDIAC CATHETERIZATION AND PERCUTANEOUS CORONARY INTERVENTION PERFORMING PHYSICIAN: Todd Harrison MD, RPVI PROCEDURE PERFORMED: 1. Selective right and left coronary angiogram 2. Left heart catheterization 3. Successful stenting of mid LAD using 3.5 x 18 mm Xience ANGELINE with an excellent angiographic results 4. Adjunctive use of intravascular imaging 5. Ultrasound guided access of the right radial artery INDICATION: Acute anterior ST elevation myocardial infarction COMPLICATION: None APPROACH: Right radial artery LEVEL OF SEDATION: Moderate with the sedation time off 34 minutes PROCEDURE DESCRIPTION: After obtaining an informed consent the patient was brought emergently to the cardiac canvas shop laborer. The right radial artery was cannulated using micropuncture technique under ultrasound guidance the micropuncture wire passed easily then I placed a 6-[place] sheath in the right radial artery. I gave the patient heparin IV with continuous ACT monitoring. The patient was received a total of 2500 units of heparin IV with continuous ACT monitoring. Selective right and left coronary angiogram performed using JR4 and JL 3.5 catheters. Left heart catheterization was performed using the JR4 catheter which causes aortic valve in pullback across about. The procedure was completed with no complication after I did perform PCI of the LAD SELECTIVE CORONARY ANGIOGRAM: The right coronary artery: Large caliber vessel and a dominant vessel. The RCA in the proximal to midportion has severe lesion appeared to be in the range of 80-90% and the RCA stented. Left main: Is angiographically normal. Bifurcates into an LCx and LAD The left circumflex: Large caliber vessel nondominant vessel. The LCx gives rises into the first and second obtuse marginal branches. Both appear to have mild to moderate disease with no high-grade stenosis. The circumflex continue in the AV groove as a small-caliber vessel The left anterior descending artery: Large caliber vessel. The proximal LAD appears to have mild disease only. The mid LAD stented and there is an area inside the stent appeared to be 100% occluded. The LAD gives rises into multiple diagonal branches. HEMODYNAMICS: The LVEDP was 18 mmHg was no significant gradient across aortic valve PCI OF THE LAD: Anticoagulation was initiated using heparin with continuous ACT monitoring. Subsequently I did engage the left main using JL 3.5 guiding catheter. I did wire the LAD using a run-through wire. I did predilatation using 2.5 mm balloon. Intravascular imaging revealed thrombus inside the distal stented segment of the LAD and a diameter of 3.5 mm. I did deploy a 3.5 x 18 mm stent and I postdilated the stent using 3.5 mm noncompliant balloon was final angiogram and intravascular imaging showed that the stent was well opposed and well expanded. JOBY-3 flow was accomplished by the end. The procedure was completed was no complication CONCLUSION: Acute total occlusion of the mid LAD which is in-stent occlusion. I did perform successful angioplasty and stenting of the LAD as described above Severe disease involving the proximal to mid RCA which seems to be also in-stent restenosis Mildly elevated LVEDP POSTPROCEDURE MANAGEMENT: 1. Dual antiplatelet therapy using aspirin and Plavix for all gone month. Consider switching the patient to more potent antiplatelet therapy. 2. Aggressive cholesterol control 3. Follow-up with the patient
[2023-08-10 06:16] LABS: Glucose,Whole Blood 95 mg/dL (70-110)
--- NOTE | 2023-08-10 07:13 | XR ---
EXAMINATION TYPE: XR chest 1V portable DATE OF EXAM: 08/10/2023 4:36 AM CLINICAL INDICATION:Male, 63 years old with history of chest pain; COMPARISON: Chest radiographs from 04/18/2017 TECHNIQUE: XR chest 1V portable Frontal view of the chest. FINDINGS: Lungs/Pleura: There is no evidence of pleural effusion, focal consolidation, or pneumothorax. Pulmonary vascularity: Unremarkable. Heart/mediastinum: Cardiomediastinal silhouette is unremarkable. Musculoskeletal: No acute osseous pathology. Other findings: None IMPRESSION: No acute cardiopulmonary disease/process.
--- NOTE | 2023-08-10 08:32 | P.HPIM ---
History of Present Illness This is a pleasant 63 years old maleWith past medical history of hypertension, hyperlipidemia. History of coronary artery disease status post previous stent. Patient presents initially with chest pain and some palpitation, his blood pressure was elevated in the emergency room when he came in 180/109. He presents with STEMI activation out of the hospital with EKG showing ST elevation in V1 to V4. Underwent emergent cardiac cath and showing in-stent stenosis of LAD status post PCI to LAD. So he has another in-stent stenosis of mid RCA with severe disease. Currently patient seen in the ICU. He has no chest pain but some discomfort in the left chest area. No dyspnea. No coughing. No abdominal complaint like vomiting diarrhea or abdominal pain. No urinary complaints like dysuria or urgency. Intake dizziness weakness or numbness. He denies smoking alcohol or illicit drugs. On reviewing patient medication there was clindamycin and dexamethasone. As the patient told me he is not taking clindamycin. I discussed with the bedside nurse to double check with also kinesiologist team and the found and may be discontinued. Patient currently is afebrile with no leukocytosis. Vital signs stable and currently blood pressure 143/91. Labs reviewed. He has unremarkable CBC, INR, BMP, liver enzymes. Chest x-ray shows COPD with no acute process and I reviewed the chest x-ray by myself. Elevated on admission 0.106. Echocardiogram is been done today and depending results. I discussed with the bedside nurse looks like An drip was stopped since he came from the cardiac cath. He was switched to subcutaneous heparin twice a day He is currently on normal saline 75 mL/h He is also on lisinopril 5 mg and metoprolol 25 mg, aspirin and Plavix Review of Systems Review of systems CONSTITUTIONAL: No fever, no malaise, no fatigue. HEENT: No recent visual problems or hearing problems. Denied any sore throat. CARDIOVASCULAR: No orthopnea, PND, no palpitations, no syncope. PULMONARY: No shortness of breath, no cough, no hemoptysis. GASTROINTESTINAL: No diarrhea, no nausea, no vomiting, no abdominal pain. Normoactive bowel sounds. NEUROLOGICAL: No headaches, no weakness, no numbness. HEMATOLOGICAL: Denies any bleeding or petechiae. GENITOURINARY: Denies any burning micturition, frequency, or urgency. MUSCULOSKELETAL/RHEUMATOLOGICAL: Denies any joint pain, swelling, or any muscle pain. ENDOCRINE: Denies any polyuria or polydipsia. Past Medical History Past Medical History: Hyperlipidemia, Hypertension, Myocardial Infarction (TN) Additional Past Medical History / Comment(s): [place] History of Any Multi-Drug Resistant Organisms: None Reported Past Surgical History: Heart Catheterization With Stent, Tonsillectomy Additional Past Surgical History / Comment(s): coronary stents x4 Past Psychological History: No Psychological Hx Reported Smoking Status: Never smoker Past Alcohol Use History: None Reported Past Drug Use History: None Reported Medications and Allergies Home Medications Medication Instructions Recorded Confirmed Type Clopidogrel [Plavix] 75 mg PO DAILY 01/05/14 04/18/17 History Enalapril [Vasotec] 5 mg PO DAILY 01/05/14 04/18/17 History Atorvastatin [Lipitor] 20 mg PO DAILY 04/18/17 04/18/17 History Joint Soother Otc 1 cap PO DAILY 04/18/17 04/18/17 History Metoprolol Succinate (ER) [Toprol 25 mg PO DAILY 04/18/17 04/18/17 History Xl] HYDROcodone/APAP 5-325MG [[place] 1 tab PO Q6HR PRN 3 Days #12 tab 08/16/22 Rx 5-325] clindamycin HCL 300 mg PO TID 7 Days #21 capsule 08/16/22 Rx dexAMETHasone [Decadron] 4 mg PO DAILY 3 Days #3 tablet 08/16/22 Rx Allergies Allergy/AdvReac Type Severity Reaction Status Date / Time influenza virus vaccine, Allergy Unknown Verified 08/16/22 12:28 specific pneumococcal vaccine Allergy Unknown Verified 08/16/22 12:28 Physical Exam Vitals: Vital Signs Temp Pulse Pulse Resp BP BP Pulse Ox 08/10/23 06:09 98.1 F 69 20 143/91 99 08/10/23 04:35 79 20 189/100 100 08/10/23 04:30 79 20 189/110 100 08/10/23 04:26 97.5 F L 80 24 180/109 99 Intake and Output 08/09/23 08/09/23 08/10/23 14:59 22:59 06:59 Intake Total 250 Balance 250 Intake: IV 250 Other: Weight 86.183 kg GENERAL: The patient is alert and oriented x3, not in any acute distress. Well developed, well nourished. HEENT: Pupils are round and equally reacting to light. EOMI. No scleral icterus. No conjunctival pallor. Normocephalic, atraumatic. No pharyngeal erythema. No thyromegaly. CARDIOVASCULAR: S1 and S2 present. No murmurs, rubs, or gallops. PULMONARY: Chest is clear to auscultation, no wheezing , no crackles. ABDOMEN: Soft, nontender, nondistended, normoactive bowel sounds. No palpable organomegaly. MUSCULOSKELETAL: No joint swelling or deformity. EXTREMITIES: No cyanosis, clubbing, or pedal edema. NEUROLOGICAL: Gross neurological examination did not reveal any focal deficits. SKIN: No rashes. no petechiae. Results CBC & Chem 7: 08/10/23 04:33 08/10/23 04:33 Labs: Abnormal Lab Results - Last 24 Hours (Table) 08/10/23 08/10/23 08/10/23 Range/Units 04:33 04:33 04:33 Hgb 17.6 H (13.0-17.5) gm/dL Glucose 122 H (74-99) mg/dL Troponin I 0.106 H* (0.000-0.034) ng/mL Total Protein 6.2 L (6.3-8.2) g/dL Assessment and Plan Assessment: -Acute STEMI with ST elevation in the anterior septal leads status post PCI to the mid LAD for in-stent stenosis. Patient has another severe in-stent stenosis of the mid RCA -Hypertension -Hyperlipidemia Plan: Continue with aspirin and Plavix Continue with normal saline. Cardiology consult Review home medication again. Labs and medication were reviewed.. Continue same treatment. Continue with symptomatic treatment. Resume home medication. Monitor labs and vitals. DVT and GI prophylaxis. Further recommendations as per clinical course of the patie nt DVT prophylaxis: Subcutaneous heparin GI Prophylaxis: Pepcid Prognosis is guarded
--- NOTE | 2023-08-10 08:47 | US ---
EXAMINATION TYPE: US carotid duplex BILAT DATE OF EXAM: 08/10/2023 COMPARISON: NONE CLINICAL INDICATION: Male, 63 years old with history of STEMI; Patient in ICU, having heart stenting, h/o multiple stents already, no h/o stroke TECHNIQUE: Carotid duplex ultrasound examination. Indirect Doppler criteria was utilized. FINDINGS: EXAM MEASUREMENTS: RIGHT: Peak Systolic Velocity (PSV) cm/sec ----- Right CCA: 99.6 ----- Right ICA: 101.5 ----- Right ECA: 111.3 ICA/CCA ratio: 1.0 RIGHT: End Diastole cm/sec ----- Right CCA: 23.8 ----- Right ICA: 19.0 ----- Right ECA: 14.4 LEFT: Peak Systolic Velocity (PSV) cm/sec ----- Left CCA: 84.2 ----- Left ICA: 60.0 ----- Left ECA: 142.6 ICA/CCA ratio: 0.7 LEFT: End Diastole cm/sec ----- Left CCA: 19.3 ----- Left ICA: 21.6 ----- Left ECA: 21.5 VERTEBRALS (direction of flow): Right Vertebral: Antegrade Left Vertebral: Antegrade Rhythm: Normal WIDE PIECE GOODS INSPECTOR NOTES: Mild homogeneous plaque with no stenosis seen IMPRESSION: No hemodynamically significant internal carotid artery stenosis on either side. Criteria for Assigning % of Stenosis / Diameter reduction (Estimation based on the indirect measurements of the internal carotid artery velocities (ICA PSV). 1. Normal (no stenosis)=ICA PSV < 125 cm/s: ratio < 2.0: ICA EDV<40 cm/s. 2. Less than 50% stenosis=ICA PSV < 125 cm/s: ratio < 2.0: ICA EDV<40 cm/s. 3. 50 to 69% stenosis=ICA PSV of 125 to 230 cm/s: ration 2.0 ? 4.0: ICA EDV 40-100 cm/s. 4. Greater than 70% stenosis to near occlusion= ICA PSV > 230 cm/s: ratio > 4.0: ICA EDV > 100 cm/s. 5. Near occlusion= ICA PSV velocities may be low or undetectable: variable ratio and ICA EDV. 6. Total occlusion=unable to detect flow.
[2023-08-10] MEDS ORDERED: lisinopriL 5 MG TAB PO SCH (09:00)
[2023-08-10] MEDS ORDERED: ATORVASTATIN 20 MG TAB PO SCH (09:00)
[2023-08-10] MEDS ORDERED: FAMOTIDINE 20 MG/2 ML VIAL IV SCH (09:00)
[2023-08-10] MEDS ORDERED: [UNRECOGNIZED DRUG - OTHER] PO SCH (09:00)
[2023-08-10] MEDS ORDERED: dexAMETHasone 4 MG TAB PO SCH (09:00)
[2023-08-10] MEDS ORDERED: CLINDAMYCIN 150 MG CAP PO SCH (09:00)
[2023-08-10] MEDS: METOPROLOL SUCCINATE (ER) 25 MG TAB.ER.24H PO SCH (09:42)
[2023-08-10] MEDS: ASPIRIN 81 MG PO SCH (09:42)
[2023-08-10] MEDS: HEPARIN SODIUM,PORCINE 5,000 UNIT/ML 1 ML VIAL SQ SCH ×2 (09:42→20:47)
[2023-08-10] MEDS: CLOPIDOGREL 75 MG TAB PO SCH (09:43)
[2023-08-10 11:14] VITALS: BMI 25.7
--- NOTE | 2023-08-10 12:45 | CA ---
Transthoracic Echo Report Name: Matthew Schmidt Age: 63 Gender: M : 1960 Exam Date: 08/10/2023 07:40 Exam Location: [facility] Ht (in): 72 Wt (lb): 190 Ordering Physician: Todd Harrison MD ([id number]) Attending/Referring Phys: Fleet Service Manager Gabriela Cui RDCS Procedure CPT: Indications: stemi Cardiac Hx: stents Technical Quality: Good Contrast 1: Total Dose (mL): Contrast 2: Total Dose (mL): MEASUREMENTS (Male / Female) Normal Values 2D ECHO LV Diastolic Diameter PLAX 4.7 cm 4.2 - 5.9 / 3.9 - 5.3 cm LV Systolic Diameter PLAX 2.6 cm IVS Diastolic Thickness 1.0 cm 0.6 - 1.0 / 0.6 - 0.9 cm LVPW Diastolic Thickness 1.0 cm 0.6 - 1.0 / 0.6 - 0.9 cm LV Relative Wall Thickness 0.4 RV Internal Dim ED PLAX 3.3 cm LA Systolic Diameter LX 3.4 cm 3.0 - 4.0 / 2.7 - 3.8 cm LV Diastolic Volume MOD 4C 130.1 cm??? LV Systolic Volume MOD 4C 57.7 cm??? LV Ejection Fraction MOD 4C 55.7 % LV Cardiac Index MOD 4C 2309.4 cm???/min???m??? LV Diastolic Length 4C 10.0 cm LV Systolic Length 4C 8.4 cm LV Diastolic Volume MOD 2C 124.6 cm??? LV Systolic Volume MOD 2C 52.6 cm??? LV Ejection Fraction MOD 2C 57.8 % LV Cardiac Index MOD 2C 2295.9 cm???/min???m??? LV Diastolic Length 2C 10.7 cm LV Systolic Length 2C 9.0 cm LA Volume 63.5 cm??? 18 - 58 / 22 - 52 cm??? LA Volume Index 30.2 cm???/m??? 16 - 28 cm???/m??? M-MODE Aortic Root Diameter MM 4.0 cm MV E Point Septal Separation 0.3 cm AV Cusp Separation MM 2.5 cm DOPPLER AV Peak Velocity 125.0 cm/s AV Peak Gradient 6.2 mmHg MV Area PHT 4.3 cm??? Mitral E Point Velocity 81.6 cm/s Mitral A Point Velocity 91.0 cm/s Mitral E to A Ratio 0.9 MV Deceleration Time 175.5 ms MV E' Velocity 7.1 cm/s Mitral E to MV E' Ratio 11.5 TR Peak Velocity 223.4 cm/s TR Peak Gradient 20.0 mmHg Right Ventricular Systolic Press 25.0 mmHg FINDINGS Left Ventricle Left ventricular ejection fraction is estimated at 45-50 %. Left ventricular cavity size normal. Left ventricular wall thickness normal. Apical and distal anterior wall hypokinesis Right Ventricle Mild right ventricular dilatation. Right ventricular systolic pressure within normal limits. Right Atrium Normal right atrial size. Left Atrium Mildly increased left atrial volume. Mitral Valve Mitral valve thickened. Mild mitral regurgitation. Aortic Valve Trileaflet aortic valve. No aortic valve stenosis or regurgitation. Tricuspid Valve Structurally normal tricuspid valve.trace to mild tricuspid regurgitation. Pulmonic Valve Pulmonic valve not well visualized. Pericardium No pericardial effusion. Aorta Mild aortic dilatation at the level of the sinuses of valsalva 40 mm CONCLUSIONS Normal left ventricular size with mildly impaired systolic function with segmental wall motion abnormality Mild mitral regurgitation Previewed by: Dr. Braden Parham MD (Electronically Signed) Final Date: 10 August 2023 12:44
[2023-08-10] MEDS ORDERED: lisinopriL 5 MG TAB PO ONE (13:00)
--- NOTE | 2023-08-10 13:23 | PN ---
PROGRESS NOTE DATE OF SERVICE: 08/10/2023 SUBJECTIVE: This gentleman came in with acute anterior MO, underwent stenting of a totally occluded mid LAD by Dr. Harrison this morning. He is hemodynamically stable, resting comfortably. He has some issues with statin usage, but he is on 20 mg of Lipitor, resting comfortably, no symptoms. He will be on dual-antiplatelet therapy. He apparently stopped his aspirin and Plavix about a year ago. At the time of my evaluation, he is resting comfortably. Right radial site is clean and dry. He has a soft carotid bruit on the left side. OBJECTIVE: VITAL SIGNS: Stable. NECK: No JVD. HEART: S1, S2 heard normally, soft carotid bruit on the left side. LUNGS: Bilateral decent air entry. ABDOMEN: Soft, nontender. EXTREMITIES: Lower extremities reveal normal pulses. No edema. NEUROLOGIC: Central nervous system is normal. IMPRESSION: Acute anterior MO, status post stenting of mid LAD that was totally occluded. He also has moderate disease apparently in the midportion of the RCA as well. We will continue current medical regimen and await the findings on echocardiogram. MMODL / IJN: [id number] /
[2023-08-10] MEDS: HYDROcodone/APAP 5-325MG 1 EACH TAB PO PRN (16:24)
[2023-08-10] MEDS: FAMOTIDINE 20 MG TAB PO SCH (20:47)
[2023-08-10] MEDS: ZOLPIDEM 5 MG TAB PO PRN (20:53)
[2023-08-11 08:43] LABS: Basophils % (A) 1 %; Eosinophils # (A) 0.2 k/uL (0-0.7); Eosinophils % (A) 3 %; Lymphocytes # (A) 1.3 k/uL (1.0-4.8); Lymphocytes % (A) 18 %; MCH 31.8 pg (25.0-35.0); MCHC 32.6 g/dL (31.0-37.0); MCV 97.7 fL (80.0-100.0); Mean Platelet Volume 8.1; Monocytes # (A) 0.5 k/uL (0-1.0); Monocytes % (A) 7 %; Neutrophils # (A) 5.2 k/uL (1.3-7.7); Neutrophils % (A) 71 %; Platelet Count 189 k/uL (150-450); RBC 5.99 m/uL (4.30-5.90); RDW 12.1 % (11.5-15.5); WBC 7.3 k/uL (3.8-10.6)
[2023-08-11 09:00] LABS: African American GFR (CKD) >90 (>60 ml/min/1.73 sqM); Anion Gap 11 mmol/L; Blood Urea Nitrogen 10 mg/dL (9-20); Calcium 9.3 mg/dL (8.4-10.2); Carbon Dioxide 23 mmol/L (22-30); Chloride 102 mmol/L (98-107); Glucose 123 mg/dL (74-99); Non-African American GFR(CKD) 83 (>60 ml/min/1.73 sqM); Potassium 4.8 mmol/L (3.5-5.1); Sodium 136 mmol/L (137-145)
[2023-08-11 09:00] LABS: HCT 58.5 % (39.0-53.0)
[2023-08-11] MEDS: ASPIRIN 81 MG PO SCH (10:26)
[2023-08-11] MEDS: CLOPIDOGREL 75 MG TAB PO SCH (10:26)
[2023-08-11] MEDS: HEPARIN SODIUM,PORCINE 5,000 UNIT/ML 1 ML VIAL SQ SCH ×2 (10:26→19:58)
[2023-08-11] MEDS: METOPROLOL SUCCINATE (ER) 25 MG TAB.ER.24H PO SCH (10:26)
[2023-08-11] MEDS: FAMOTIDINE 20 MG TAB PO SCH ×2 (10:26→19:59)
[2023-08-11] MEDS: lisinopriL 20 MG TAB PO SCH (10:26)
[2023-08-11] MEDS: ATORVASTATIN 40 MG TAB PO SCH (10:28)
--- NOTE | 2023-08-11 11:20 | P.PN ---
Subjective This is a pleasant 63 years old maleWith past medical history of hypertension, hyperlipidemia. History of coronary artery disease status post previous stent. Patient presents initially with chest pain and some palpitation, his blood pressure was elevated in the emergency room when he came in 180/109. He presents with STEMI activation out of the hospital with EKG showing ST elevation in V1 to V4. Underwent emergent cardiac cath and showing in-stent stenosis of LAD status post PCI to LAD. So he has another in-stent stenosis of mid RCA with severe disease. Currently patient seen in the ICU. He has no chest pain but some discomfort in the left chest area. No dyspnea. No coughing. No abdominal complaint like vomiting diarrhea or abdominal pain. No urinary complaints like dysuria or urgency. Intake dizziness weakness or numbness. He denies smoking alcohol or illicit drugs. On reviewing patient medication there was clindamycin and dexamethasone. As the patient told me he is not taking clindamycin. I discussed with the bedside nurse to double check with also environmental protection economist team and the found and may be discontinued. Patient currently is afebrile with no leukocytosis. Vital signs stable and currently blood pressure 143/91. Labs reviewed. He has unremarkable CBC, INR, BMP, liver enzymes. Chest x-ray shows COPD with no acute process and I reviewed the chest x-ray by myself. Elevated on admission 0.106. Echocardiogram is been done today and depending results. I discussed with the bedside nurse looks like An drip was stopped since he came from the cardiac cath. He was switched to subcutaneous heparin twice a day He is currently on normal saline 75 mL/h He is also on lisinopril 5 mg and metoprolol 25 mg, aspirin and Plavix 08/11/2023 Patient with no chest pain or dyspnea. He is status post PCI to LAD yesterday. History of have severe disease of the proximal to mid RCA showing in-stent stenosis. Cardiology team are planning for another cardiac cath tomorrow. Hemodynamically stable and vitals are stable. currently on aspirin and Plavix Objective - Vital Signs Vital signs: Vital Signs Temp 97.5 F L 08/11/23 05:29 Pulse 73 08/11/23 05:29 Resp 16 08/11/23 05:29 BP 130/81 08/11/23 05:29 Pulse Ox 97 08/11/23 05:29 FiO2 Intake & Output 08/10/23 08/11/2308/11/23 18:59 06:59 18:59 Intake Total 1375 150 658 Output Total 0 0 Balance 1375 150 658 Weight 86.183 kg 88.8 kg Intake: Intake, IV Titration 375 Amount Sodium Chloride 0.9% 1, 375 000 ml In Empty Bag 1 bag @ 75 mls/hr IV .[id number] [facility] Rx#:[id number] Oral 1000 150 658 Output: Urine 0 0 Other: Voiding Method Urinal Toilet Urinal # Voids 1 1 - Exam GENERAL: The patient is alert and oriented x3, not in any acute distress. Well developed, well nourished. HEENT: Pupils are round and equally reacting to light. EOMI. No scleral icterus. No conjunctival pallor. Normocephalic, atraumatic. No pharyngeal erythema. No thyromegaly. CARDIOVASCULAR: S1 and S2 present. No murmurs, rubs, or gallops. PULMONARY: Chest is clear to auscultation, no wheezing , no crackles. ABDOMEN: Soft, nontender, nondistended, normoactive bowel sounds. No palpable organomegaly. MUSCULOSKELETAL: No joint swelling or deformity. EXTREMITIES: No cyanosis, clubbing, or pedal edema. NEUROLOGICAL: Gross neurological examination did not reveal any focal deficits. SKIN: No rashes. no petechiae. - Labs CBC & Chem 7: 08/11/23 08:05 08/11/23 08:25 Labs: Abnormal Lab Results - Last 24 Hours (Table) 08/11/23 08/11/23 Range/Units 08:05 08:25 RBC 5.99 H (4.30-5.90) m/uL Hgb 19.0 H (13.0-17.5) gm/dL Hct 58.5 H* (39.0-53.0) % Sodium 136 L (137-145) mmol/L Glucose 123 H (74-99) mg/dL Assessment and Plan Assessment: -Acute STEMI with ST elevation in the anterior septal leads status post PCI to the mid LAD for in-stent stenosis. Patient has another severe in-stent stenosis of the mid RCA -Hypertension -Hyperlipidemia Plan: Continue with aspirin and Plavix Cardiology consult Plan for another cardiac cath tomorrow Labs and medication were reviewed.. Continue same treatment. Continue with symptomatic treatment. Resume home medication. Monitor labs and vitals. DVT and GI prophylaxis. Further recommendations as per clinical course of the patient DVT prophylaxis: Subcutaneous heparin GI Prophylaxis: Pepcid Prognosis is guarded
--- NOTE | 2023-08-11 12:50 | PN ---
PROGRESS NOTE SUBJECTIVE: Mr. Schmidt is a gentleman who presented with ST-elevation RI, underwent stenting of in- stent restenotic LAD that was 100% occluded. He also has significant lesion in the RCA. Dr. Harrison will perform PCI of RCA tomorrow. I discussed with the patient the procedure, explained to him that he should be on Lipitor, at least for a short or until he sees his primary doctor. OBJECTIVE: VITALS: Stable. NECK: No JVD. Right radial site is clean and dry. HEART: S1, S2 heard normally. LUNGS: Clear. ABDOMEN: Unchanged. EXTREMITIES: Lower extremity exam unchanged. The patient understand the rationale, risks, benefits, options, and wishes to proceed with PCI of RCA tomorrow by Dr. Harrison. MMODL / IJN: [id number] /
[2023-08-11] MEDS: ZOLPIDEM 5 MG TAB PO PRN (19:59)
[2023-08-12] MEDS: SODIUM CHLORIDE 0.9% 1,000 ML in EMPTY BAG 1 BAG IV SCH ×3 (00:40→23:48)
[2023-08-12] MEDS: CLOPIDOGREL 75 MG TAB PO SCH (05:00)
[2023-08-12] MEDS: ASPIRIN 81 MG PO SCH (05:00)
[2023-08-12] MEDS: FAMOTIDINE 20 MG TAB PO SCH ×2 (05:00→21:32)
[2023-08-12] MEDS: lisinopriL 20 MG TAB PO SCH (05:01)
[2023-08-12] MEDS: ATORVASTATIN 40 MG TAB PO SCH (05:01)
[2023-08-12] MEDS: METOPROLOL SUCCINATE (ER) 25 MG TAB.ER.24H PO SCH (05:01)
[2023-08-12] MEDS: HEPARIN SODIUM,PORCINE 5,000 UNIT/ML 1 ML VIAL SQ SCH ×2 (05:02→21:32)
[2023-08-12] MEDS ORDERED: VERAPAMIL 2.5 MG/ML 2 ML AMP ONE (08:52)
[2023-08-12] MEDS ORDERED: HEPARIN SODIUM 1,000 UN/ML (10ML VL) ONE (08:53)
[2023-08-12] MEDS ORDERED: IV FLUID CONTINUATION 1,000 ML IV ONE (09:15)
[2023-08-12] MEDS ORDERED: LIDOCAINE 1% INJ 10MG/ML (20 ML MDV) SQ ONE ×2 (09:17→11:57)
[2023-08-12] MEDS ORDERED: MIDAZOLAM 2 MG/2 ML VIAL IVP ONE ×2 (09:17→12:03)
[2023-08-12] MEDS ORDERED: VERAPAMIL SYRINGE (5 MG/10 ML) INTRAARTER ONE (09:18)
[2023-08-12] MEDS ORDERED: HEPARIN SODIUM 1,000 UN/ML (10ML VL) IV ONE (09:21)
[2023-08-12] MEDS ORDERED: IOPAMIDOL-370 100ML BTL INJ ONE ×2 (09:35→12:10)
[2023-08-12] MEDS ORDERED: NITROGLYCERIN SL TABS 0.4 MG TAB SUBLINGUAL PRN (09:42)
[2023-08-12] MEDS ORDERED: MAG HYDROX/AL HYDROX/SIMETH 30 ML CUP PO PRN (09:42)
[2023-08-12] MEDS ORDERED: ZOLPIDEM 5 MG TAB PO PRN (09:42)
[2023-08-12] MEDS ORDERED: ATROPINE SULFATE 0.1 MG/ML 10ML SYRINGE IV PRN (09:42)
[2023-08-12] MEDS ORDERED: RX INFO: IV CONTRAST WAS GIVEN 1 EACH MISC MISCELLANE PRN ×2 (09:42→12:14)
[2023-08-12] MEDS ORDERED: SODIUM CHLORIDE 0.9% 1,000 ML in EMPTY BAG 1 BAG IV SCH (09:45)
--- NOTE | 2023-08-12 09:48 | P.PCN ---
Date of Procedure: 08/12/23 Operative Findings: PERCUTANEOUS CORONARY INTERVENTION Performing physician Todd Harrison M.D. Procedure Performed: 1. Successful balloon angioplasty (PTCA) of the mid RCA using 3.5 x 15 mm noncompliant balloon an excellent angiographic results and reduction of stenosis from 99% to 0% 2. Adjunctive use of intravascular imaging (IVUS) 3. Ultrasound-guided access of the right radial artery Indication: This is a 63-year-old gentleman with coronary artery disease and prior stenting of the right coronary artery and LAD who presented to the hospital recently with acute anterior ST elevation myocardial infarction and underwent a heart catheterization and stenting of the left anterior descending artery. He was found to have critical disease involving the right coronary artery. He was brought today to undergo an intervention on the RCA Approach: Right radial artery Complications: None Level of Sedation: Moderate with a sedation length of 15 minutes Procedure Discussion: After obtaining an informed consent the patient was brought to the cardiac quality lab technician. The right radial artery was cannulated using micropuncture technique under ultrasound guidance an echo puncture wire passed easily then in place 6-Telugu 11 cm sheath at the right radial artery. I gave the patient 2 mg of verapamil and arterial and 6000 use of heparin intravenous. I did engage the RCA using JR4 guiding catheter. The RCA was wired using a run-through wire. Subsequently intravascular ultrasound was performed and showed a diameter of 3.5 mm and 2 layers stents at least noted. With that I decided to start was balloon angioplasty I did balloon angioplasty of the RCA using 3.5 x 15 mm noncompliant balloon were the balloon was inflated multiple times under 20 tanner for 20 seconds. Final angiogram showed excellent angiographic results with reduction of stenosis from 99% to 0% was JOBY-3 flow. The patient tolerated the procedure very well. Another stent was not deployed just to avoid another layer of stent in the addition of 2 layers from before and in the light of obtaining excellent angiographic results Postprocedure Management: 1. Continue dual antiplatelet therapy for at least a year since the patient had acute coronary syndrome recently 2. Aggressive cholesterol control 3. Risk factors modification
[2023-08-12] MEDS: HYDROcodone/APAP 5-325MG 1 EACH TAB PO PRN ×2 (10:37→21:46)
--- NOTE | 2023-08-12 10:50 | PN ---
PROGRESS NOTE SUBJECTIVE: Mr. Schmidt is doing well. He presented with anterior ST elevation LA is going for a second vessel which is RCA to be performed by Dr. Harrison today. OBJECTIVE: VITAL SIGNS: Stable. Radial site is clean and dry. HEART: S1 and S2 heard normally. LUNGS: Clear. ABDOMEN: Unchanged. EXTREMITIES: Lower extremities unchanged. The patient is on dual antiplatelet therapy, going for a RCA PCI today. MMODL / IJN: [id number] /
[2023-08-12] MEDS ORDERED: NITROGLYCERIN-D5W PMX 50 MG in DEXTROSE/WATER 1 250ML.BAG IV SCH (11:30)
[2023-08-12] MEDS ORDERED: IV FLUID CONTINUATION 700 ML IV ONE (11:58)
[2023-08-12] MEDS ORDERED: fentaNYL (PF) 50 MCG/ML 2 ML AMP ONE (12:00)
[2023-08-12] MEDS ORDERED: fentaNYL (PF) 50 MCG/ML 2 ML AMP IVP ONE (12:03)
[2023-08-12] MEDS ORDERED: SODIUM CHLORIDE 0.9% 1,000 ML IV SCH (12:15)
--- NOTE | 2023-08-12 12:19 | P.PCN ---
Date of Procedure: 08/12/23 Operative Findings: CARDIAC CATHETERIZATION PERFORMING PHYSICIAN: Todd Harrison MD, RPVI PROCEDURE PERFORMED: 1. Selective right and left coronary angiogram 2. Left heart catheterization 3. Selective right common femoral artery angiogram INDICATION: Chest discomfort with ST changes anteriorly concerning for acute coronary syndrome related to acute stent thrombosis COMPLICATION: None APPROACH: Right common femoral artery LEVEL OF SEDATION: Moderate with sedation in length of 12 minutes PROCEDURE DESCRIPTION: After obtaining an informed consent, the patient was brought to cardiac label machine operator. Local anesthesia was performed using lidocaine subcutaneously. The right common femoral artery was cannulated using Seldinger technique, the guidewire passed easily, following that we advanced a 6 Tanzanian sheath dilator assembly, the wire and dilator were removed and sheath was flushed. Selective right and left coronary angiogram using a 6-Tanzanian CLS 3.5 for the left and JR4 guide for the right coronary artery Following that we did left heart catheterization using 6-Tanzanian pigtail catheter. The procedure was completed there was no complication. SELECTIVE CORONARY ANGIOGRAM: The right coronary artery: Large caliber vessel and a dominant vessel. The RCA is patent. The proximal RCA we did perform balloon angioplasty earlier today appeared to be patent. The mid and distal RCA appeared to have mild disease only. JOBY-3 flow was seen in the right coronary artery Left main: Is angiographically normal. Bifurcates into an LCx and LAD The left circumflex: Large caliber vessel nondominant vessel. The LCx appears to have mild diffuse disease only. It gives rises into an OM1 and OM 2 and both appear to have mild disease only. The left anterior descending artery: The LAD is a large caliber vessel with a stent in the mid segment and the stent appeared to be patent. There was JOBY 2 flow was seen in the left anterior descending artery. No high-grade stenosis was identified HEMODYNAMICS: The LVEDP was about 8 mmHg was no significant gradient across aortic valve CONCLUSION: 1. Patent right coronary artery 2. Patent stent in the mid left anterior descending artery 3. Normal left-sided filling pressure POSTPROCEDURE MANAGEMENT: Medical treatment and follow-up with the patient
[2023-08-12 15:29] LABS: Basophils % (A) 1 %; Eosinophils # (A) 0.2 k/uL (0-0.7); Eosinophils % (A) 2 %; HGB 18.2 gm/dL (13.0-17.5); Lymphocytes # (A) 1.4 k/uL (1.0-4.8); Lymphocytes % (A) 19 %; MCH 31.9 pg (25.0-35.0); MCHC 32.8 g/dL (31.0-37.0); MCV 97.3 fL (80.0-100.0); Mean Platelet Volume 7.9; Monocytes # (A) 0.5 k/uL (0-1.0); Monocytes % (A) 7 %; Neutrophils # (A) 4.9 k/uL (1.3-7.7); Neutrophils % (A) 70 %; Platelet Count 210 k/uL (150-450); RDW 12.2 % (11.5-15.5); WBC 7.1 k/uL (3.8-10.6)
[2023-08-12 15:35] LABS: HCT 55.5 % (39.0-53.0)
[2023-08-12 15:49] LABS: African American GFR (CKD) 89 (>60 ml/min/1.73 sqM); Anion Gap 7 mmol/L; Blood Urea Nitrogen 16 mg/dL (9-20); Carbon Dioxide 23 mmol/L (22-30); Chloride 104 mmol/L (98-107); Glucose 154 mg/dL (74-99); Non-African American GFR(CKD) 77 (>60 ml/min/1.73 sqM); Potassium 4.5 mmol/L (3.5-5.1); Sodium 134 mmol/L (137-145)
--- NOTE | 2023-08-12 16:57 | P.PN ---
Subjective Progress Note Date: 08/12/23 63 years old maleWith past medical history of hypertension, hyperlipidemia. History of coronary artery disease status post previous stent. Patient presents initially with chest pain and some palpitation, his blood pressure was elevated in the emergency room when he came in 180/109. He presents with STEMI activation out of the hospital with EKG showing ST elevation in V1 to V4. Underwent emergent cardiac cath and showing in-stent stenosis of LAD status post PCI to LAD. So he has another in-stent stenosis of mid RCA with severe disease. Currently patient seen in the ICU. He has no chest pain but some discomfort in the left chest area. No dyspnea. No coughing. No abdominal complaint like vomiting diarrhea or abdominal pain. No urinary complaints like dysuria or urgency. Intake dizziness weakness or numbness. He denies smoking alcohol or illicit drugs. On reviewing patient medication there was clindamycin and dexamethasone. As the patient told me he is not taking clindamycin. I discussed with the bedside nurse to double check with also cylinder filler team and the found and may be discontinued. Patient currently is afebrile with no leukocytosis. Vital signs stable and currently blood pressure 143/91. Labs reviewed. He has unremarkable CBC, INR, BMP, liver enzymes. Chest x-ray shows COPD with no acute process and I reviewed the chest x-ray by myself. Elevated on admission 0.106. Echocardiogram is been done today and depending results. I discussed with the bedside nurse looks like An drip was stopped since he came from the cardiac cath. He was switched to subcutaneous heparin twice a day He is currently on normal saline 75 mL/h He is also on lisinopril 5 mg and metoprolol 25 mg, aspirin and Plavix Objective - Vital Signs Vital signs: Vital Signs Temp 97.6 F 08/12/23 07:37 Pulse 80 08/12/23 11:13 Resp 17 08/12/23 11:13 BP 158/80 08/12/23 11:13 Pulse Ox 97 08/12/23 11:13 FiO2 Intake & Output 08/11/23 08/12/23 08/12/23 18:59 06:59 18:59 Intake Total 778 618 390 Balance 778 618 390 Intake: IV 150 Oral 778 618 240 Other: Voiding Method Toilet Toilet Toilet Urinal Urinal Urinal # Voids 1 2 2 - Exam GENERAL: The patient is alert and oriented x3, not in any acute distress. Well developed, well nourished. HEENT: Pupils are round and equally reacting to light. EOMI. No scleral icterus. No conjunctival pallor. Normocephalic, atraumatic. No pharyngeal erythema. No thyromegaly. CARDIOVASCULAR: S1 and S2 present. No murmurs, rubs, or gallops. PULMONARY: Chest is clear to auscultation, no wheezing , no crackles. ABDOMEN: Soft, nontender, nondistended, normoactive bowel sounds. No palpable organomegaly. MUSCULOSKELETAL: No joint swelling or deformity. EXTREMITIES: No cyanosis, clubbing, or pedal edema. NEUROLOGICAL: Gross neurological examination did not reveal any focal deficits. SKIN: No rashes. no petechiae. - Labs CBC & Chem 7: 08/12/23 15:10 08/12/23 15:10 Assessment and Plan Assessment: -Acute STEMI with ST elevation in the anterior septal leads status post PCI to the mid LAD for in-stent stenosis. Patient has another severe in-stent stenosis of the mid RCA -Hypertension -Hyperlipidemia Plan: Continue with aspirin and Plavix Cardiology consult Plan for another cardiac cath tomorrow Labs and medication were reviewed.. Continue same treatment. Continue with symptomatic treatment. Resume home medication. Monitor labs and vitals. DVT and GI prophylaxis. Further recommendations as per clinical course of the patient DVT prophylaxis: Subcutaneous heparin GI Prophylaxis: Pepcid Prognosis is guarded
[2023-08-13] MEDS: METOPROLOL SUCCINATE (ER) 25 MG TAB.ER.24H PO SCH (09:10)
[2023-08-13] MEDS: HEPARIN SODIUM,PORCINE 5,000 UNIT/ML 1 ML VIAL SQ SCH ×2 (09:10→20:27)
[2023-08-13] MEDS: lisinopriL 20 MG TAB PO SCH (09:10)
[2023-08-13] MEDS: ASPIRIN 81 MG PO SCH (09:10)
[2023-08-13] MEDS: CLOPIDOGREL 75 MG TAB PO SCH (09:10)
[2023-08-13] MEDS: ATORVASTATIN 40 MG TAB PO SCH (09:10)
[2023-08-13] MEDS: FAMOTIDINE 20 MG TAB PO SCH ×2 (09:14→20:27)
[2023-08-13 09:38] LABS: African American GFR (CKD) 77 (>60 ml/min/1.73 sqM); Non-African American GFR(CKD) 67 (>60 ml/min/1.73 sqM)
[2023-08-13] MEDS: ISOSORBIDE MONONITRATE ER 30 MG TAB.ER.24H PO SCH (13:09)
--- NOTE | 2023-08-13 14:42 | P.PN ---
Subjective Progress Note Date: 08/13/23 The patient is a 63-year-old male who presented to the hospital with an inferior wall myocardial infarction. Coronary angiogram revealed disease in both the LAD and RCA. He underwent stenting of the proximal LAD with good results. He returned to the OR thereafter for balloon angioplasty of the RCA as he had already had multiple layers of stenting. Post balloon angioplasty he did develop chest pain with EKG changes and return to the OR which revealed patent stents. He states his been feeling well on a nitroglycerin drip. He states he has yet to ambulate around the unit today. No difficulty breathing. No current chest pain GENERAL: Well-appearing, well-nourished and in no acute distress. NECK: Supple without JVD or thyromegaly. LUNGS: Breath sounds clear to auscultation bilaterally. Respiration equal and unlabored. No wheezes, rales or rhonchi. HEART: Regular rate and rhythm without murmurs, rubs or gallops. S1 and S2 heard. EXTREMITIES: Normal range of motion, no edema. No clubbing or cyanosis. Peripheral pulses intact and strong. TELEMETRY: Sinus rhythm overnight IMPRESSION: Acute inferior wall ST elevated myocardial infarction Ischemic cardiomyopathy, EF 45-50% Dyslipidemia Hypertension PLAN: Discontinue nitroglycerin drip Start isosorbide Recommend ambulation around the unit The patient remains asymptomatic, consider discharge within the next 24 hours I am dictating on behalf of Dr Almas Bell's history/physical and assessment/plan. Objective - Vital Signs Vital signs: Vital Signs Temp 98.1 F 08/13/23 08:00 Pulse 84 08/13/23 09:05 Resp 16 08/13/23 09:05 BP 107/71 08/13/23 08:00 Pulse Ox 97 08/13/23 08:00 FiO2 Intake & Output 08/12/23 08/13/23 08/13/23 18:59 06:59 18:59 Intake Total 1070 360 Balance 1070 360 Intake: IV 350 Oral 720 360 Other: Voiding Method Toilet Toilet Toilet Urinal Urinal Urinal # Voids 2 2 2 - Labs CBC & Chem 7: 08/12/23 15:10 08/13/23 08:27 Labs: Abnormal Lab Results - Last 24 Hours (Table) 08/12/23 08/12/23 Range/Units 15:10 15:10 Hgb 18.2 H (13.0-17.5) gm/dL Hct 55.5 H (39.0-53.0) % Sodium 134 L (137-145) mmol/L Glucose 154 H (74-99) mg/dL
--- NOTE | 2023-08-13 15:06 | P.PN ---
Subjective Progress Note Date: 08/13/23 63 years old maleWith past medical history of hypertension, hyperlipidemia. History of coronary artery disease status post previous stent. Patient presents initially with chest pain and some palpitation, his blood pressure was elevated in the emergency room when he came in 180/109. He presents with STEMI activation out of the hospital with EKG showing ST elevation in V1 to V4. Underwent emergent cardiac cath and showing in-stent stenosis of LAD status post PCI to LAD. So he has another in-stent stenosis of mid RCA with severe disease. Currently patient seen in the ICU. He has no chest pain but some discomfort in the left chest area. No dyspnea. No coughing. No abdominal complaint like vomiting diarrhea or abdominal pain. No urinary complaints like dysuria or urgency. Intake dizziness weakness or numbness. He denies smoking alcohol or illicit drugs. On reviewing patient medication there was clindamycin and dexamethasone. As the patient told me he is not taking clindamycin. I discussed with the bedside nurse to double check with also entry level business analyst team and the found and may be discontinued. Patient currently is afebrile with no leukocytosis. Vital signs stable and currently blood pressure 143/91. Labs reviewed. He has unremarkable CBC, INR, BMP, liver enzymes. Chest x-ray shows COPD with no acute process and I reviewed the chest x-ray by myself. Elevated on admission 0.106. Echocardiogram is been done today and depending results. I discussed with the bedside nurse looks like An drip was stopped since he came from the cardiac cath. He was switched to subcutaneous heparin twice a day He is currently on normal saline 75 mL/h He is also on lisinopril 5 mg and metoprolol 25 mg, aspirin and Plavix 24 hour interval change 08/13/2023 Patient is seen and evaluated resting in bed; admitted to the hospital with inferior wall RI and underwent cardiac catheterization which reveals disease in both LAD and RCA; patient has undergone stenting of proximal LAD along with balloon angioplasty of the RCA; post angioplasty patient developed chest pain and EKG changes and was taken for cardiac catheterization again which revealed patent stents -- Patient is seen and evaluated; denies any chest pain; nitroglycerin drip has been discontinued; patient is placed on isosorbide and recommended to increase activity around the unit Possible discharge in next 24 hours if remains stable Objective - Vital Signs Vital signs: Vital Signs Temp 98.1 F 08/13/23 08:00 Pulse 84 08/13/23 08:00 Resp 16 08/13/23 08:00 BP 107/71 08/13/23 08:00 Pulse Ox 97 08/13/23 08:00 FiO2 Intake & Output 08/12/23 08/13/23 08/13/23 18:59 06:59 18:59 Intake Total 1070 180 Balance 1070 180 Intake: IV 350 Oral 720 180 Other: Voiding Method Toilet Toilet Urinal Urinal # Voids 2 2 - Exam GENERAL: The patient is alert and oriented x3, not in any acute distress. Well developed, well nourished. HEENT: Pupils are round and equally reacting to light. EOMI. No scleral icterus. No conjunctival pallor. Normocephalic, atraumatic. No pharyngeal erythema. No thyromegaly. CARDIOVASCULAR: S1 and S2 present. No murmurs, rubs, or gallops. PULMONARY: Chest is clear to auscultation, no wheezing , no crackles. ABDOMEN: Soft, nontender, nondistended, normoactive bowel sounds. No palpable organomegaly. MUSCULOSKELETAL: No joint swelling or deformity. EXTREMITIES: No cyanosis, clubbing, or pedal edema. NEUROLOGICAL: Gross neurological examination did not reveal any focal deficits. SKIN: No rashes. no petechiae. - Labs CBC & Chem 7: 08/12/23 15:10 08/13/23 08:27 Labs: Abnormal Lab Results - Last 24 Hours (Table) 08/12/23 08/12/23 Range/Units 15:10 15:10 Hgb 18.2 H (13.0-17.5) gm/dL Hct 55.5 H (39.0-53.0) % Sodium 134 L (137-145) mmol/L Glucose 154 H (74-99) mg/dL Assessment and Plan Assessment: -Acute STEMI with ST elevation in the anterior septal leads status post PCI to the mid LAD for in-stent stenosis. Patient has another severe in-stent stenosis of the mid RCA -Hypertension -Hyperlipidemia Plan: Continue with aspirin and Plavix Cardiology consult Plan for another cardiac cath tomorrow Labs and medication were reviewed.. Continue same treatment. Continue with symptomatic treatment. Resume home medication. Monitor labs and vitals. DVT and GI prophylaxis. Further recommendations as per clinical course of the patient DVT prophylaxis: Subcutaneous heparin GI Prophylaxis: Pepcid Prognosis is guarded
[2023-08-13] MEDS: SODIUM CHLORIDE 0.9% 1,000 ML in EMPTY BAG 1 BAG IV SCH ×2 (20:24→20:39)
[2023-08-13] MEDS: TICAGRELOR 90 MG TAB PO SCH (20:27)
[2023-08-13] MEDS: ZOLPIDEM 5 MG TAB PO PRN (20:33)
[2023-08-14] MEDS: HYDROcodone/APAP 5-325MG 1 EACH TAB PO PRN (00:33)
[2023-08-14] MEDS: HEPARIN SODIUM,PORCINE 5,000 UNIT/ML 1 ML VIAL SQ SCH (09:51)
[2023-08-14] MEDS: FAMOTIDINE 20 MG TAB PO SCH (09:51)
[2023-08-14] MEDS: lisinopriL 20 MG TAB PO SCH (09:51)
[2023-08-14] MEDS: TICAGRELOR 90 MG TAB PO SCH (09:51)
[2023-08-14] MEDS: METOPROLOL SUCCINATE (ER) 25 MG TAB.ER.24H PO SCH (09:51)
[2023-08-14] MEDS: ASPIRIN 81 MG PO SCH (09:55)
[2023-08-14] MEDS: ISOSORBIDE MONONITRATE ER 30 MG TAB.ER.24H PO SCH (09:56)
[2023-08-14] MEDS: ATORVASTATIN 40 MG TAB PO SCH (09:57)
[2023-08-14 10:38] VITALS: BP 124/78; PULSE 75; RESP 16; TEMP 98.4
--- NOTE | 2023-08-14 13:11 | P.PN ---
Subjective Progress Note Date: 08/14/23 The patient is a 63-year-old male who presented to the hospital with an inferior wall myocardial infarction. Coronary angiogram revealed disease in both the LAD and RCA. He underwent stenting of the proximal LAD with good results. He returned to the OR thereafter for balloon angioplasty of the RCA as he had already had multiple layers of stenting. Post balloon angioplasty he did develop chest pain with EKG changes and return to the OR which revealed patent stents. Nitroglycerin drip was discontinued yesterday and he was started on isosorbide. He states he did have mild dizziness after the first dose, but did tolerate his dose this morning. The patient has been refusing his statin therapy while inpatient. Patient has a history of statin intolerance and he takes a non-statin for dyslipidemia management. We encouraged the patient to take at least low-dose pravastatin, however he will discuss this outpatient with his primary data network architect He denies any chest pain or chest pressure. No dyspnea on exertion. No orthopnea. GENERAL: Well-appearing, well-nourished and in no acute distress. NECK: Supple without JVD or thyromegaly. LUNGS: Breath sounds clear to auscultation bilaterally. Respiration equal and unlabored. No wheezes, rales or rhonchi. HEART: Regular rate and rhythm without murmurs, rubs or gallops. S1 and S2 heard. EXTREMITIES: Normal range of motion, no edema. No clubbing or cyanosis. Peripheral pulses intact and strong. TELEMETRY: Sinus rhythm overnight IMPRESSION: Acute inferior wall ST elevated myocardial infarction Ischemic cardiomyopathy, EF 45-50% Dyslipidemia Hypertension PLAN: Please discharge the patient on his current medication regimen Patient to contact primary data network architect in [place] for one-week follow- up I am dictating on behalf of Dr Almas Bell's history/physical and assessment/plan. Objective - Vital Signs Vital signs: Vital Signs Temp 98.4 F 08/14/23 09:50 Pulse 75 08/14/23 09:50 Resp 16 08/14/23 09:50 BP 124/78 08/14/23 09:50 Pulse Ox 98 08/14/23 09:50 FiO2 Intake & Output 08/13/23 08/14/23 08/14/23 18:59 06:59 18:59 Intake Total 540 240 Balance 540 240 Intake: Oral 540 240 Other: Voiding Method Toilet Toilet Toilet Urinal Urinal Urinal # Voids 2 3 1 - Labs CBC & Chem 7: 08/12/23 15:10 08/13/23 08:27
--- NOTE | 2023-08-14 16:30 | P.DS ---
Providers Date of admission: 08/10/23 04:42 Expected date of discharge: 08/14/23 Attending physician: Josie Foster Consults: 08/10/23 04:28 Consult Physician Stat Consulting Provider: Almas Bell Consult Reason/Comments: stemi Do you want consulting provider notified?: Already Contacted 08/10/23 05:54 Consult Physician Routine Consulting Provider: [facility] Consult Reason/Comments: Post Interventional patient Do you want consulting provider notified?: Already Contacted 08/12/23 09:42 Consult Physician Routine Consulting Provider: [facility] Consult Reason/Comments: Post Interventional patient Do you want consulting provider notified?: Already Contacted Primary care physician: Harley [facility] Course: 63 years old maleWith past medical history of hypertension, hyperlipidemia. History of coronary artery disease status post previous stent. Patient presents initially with chest pain and some palpitation, his blood pressure was elevated in the emergency room when he came in 180/109. He presents with STEMI activation out of the hospital with EKG showing ST elevation in V1 to V4. Underwent emergent cardiac cath and showing in-stent stenosis of LAD status post PCI to LAD. So he has another in-stent stenosis of mid RCA with severe disease. Currently patient seen in the ICU. He has no chest pain but some discomfort in the left chest area. No dyspnea. No coughing. No abdominal complaint like vomiting diarrhea or abdominal pain. No urinary complaints like dysuria or urgency. Intake dizziness weakness or numbness. He denies smoking alcohol or illicit drugs. On reviewing patient medication there was clindamycin and dexamethasone. As the patient told me he is not taking clindamycin. I discussed with the bedside nurse to double check with also fruit shipper team and the found and may be discontinued. Patient currently is afebrile with no leukocytosis. Vital signs stable and currently blood pressure 143/91. Labs reviewed. He has unremarkable CBC, INR, BMP, liver enzymes. Chest x-ray shows COPD with no acute process and I reviewed the chest x-ray by myself. Elevated on admission 0.106. Echocardiogram is been done today and depending results. I discussed with the bedside nurse looks like An drip was stopped since he came from the cardiac cath. He was switched to subcutaneous heparin twice a day He is currently on normal saline 75 mL/h He is also on lisinopril 5 mg and metoprolol 25 mg, aspirin and Plavix 24 hour interval change 08/13/2023 Patient is seen and evaluated resting in bed; admitted to the hospital with inferior wall MD and underwent cardiac catheterization which reveals disease in both LAD and RCA; patient has undergone stenting of proximal LAD along with bal loon angioplasty of the RCA; post angioplasty patient developed chest pain and EKG changes and was taken for cardiac catheterization again which revealed patent stents -- Patient is seen and evaluated; denies any chest pain; nitroglycerin drip has been discontinued; patient is placed on isosorbide and recommended to increase activity around the unit Possible discharge in next 24 hours if remains stable 08/14/2023 Patient has been evaluated by cardiology and is cleared for discharge on his current medication regimen; patient to follow-up with primary fruit shipper in [facility] in one week Patient Condition at Discharge: Serious Plan - Discharge Summary New Discharge Prescriptions: New Aspirin 81 mg PO DAILY tab Isosorbide Mononitrate ER [Imdur] 30 mg PO DAILY 30 Days #30 tab lisinopriL [Zestril] 20 mg PO DAILY 30 Days #30 tab Ticagrelor [Brilinta] 90 mg PO BID 30 Days #60 tab Atorvastatin [Lipitor] 40 mg PO DAILY #30 tab Metoprolol Succinate (ER) [Toprol XL] 25 mg PO DAILY 30 Days #30 tab Continue Clopidogrel [Plavix] 75 mg PO DAILY Nitroglycerin Sl Tabs [Nitrostat] 0.4 mg SUBLINGUAL Q5M PRN PRN Reason: Chest Pain Enalapril [Vasotec] 10 mg PO DAILY Bempedoic Acid/Ezetimibe [Nexlizet 180-10 mg Tablet] 1 tab PO DAILY icosapent ethyL [Icosapent Ethyl] 2 gm PO BID Discharge Medication List Clopidogrel [Plavix] 75 mg PO DAILY 01/05/14 [History] Bempedoic Acid/Ezetimibe [Nexlizet 180-10 mg Tablet] 1 tab PO DAILY 08/10/23 [History] Enalapril [Vasotec] 10 mg PO DAILY 08/10/23 [History] Nitroglycerin Sl Tabs [Nitrostat] 0.4 mg SUBLINGUAL Q5M PRN 08/10/23 [History] icosapent ethyL [Icosapent Ethyl] 2 gm PO BID 08/10/23 [History] Aspirin 81 mg PO DAILY tab 08/14/23 [Rx] Atorvastatin [Lipitor] 40 mg PO DAILY #30 tab 08/14/23 [Rx] Isosorbide Mononitrate ER [Imdur] 30 mg PO DAILY 30 Days #30 tab 08/14/23 [Rx] Metoprolol Succinate (ER) [Toprol XL] 25 mg PO DAILY 30 Days #30 tab 08/14/23 [Rx] Ticagrelor [Brilinta] 90 mg PO BID 30 Days #60 tab 08/14/23 [Rx] lisinopriL [Zestril] 20 mg PO DAILY 30 Days #30 tab 08/14/23 [Rx] Follow up Appointment(s)/Referral(s): Harley Khan DO [Primary Care Provider] - 1-2 days (Patient to schedule appointment as office is closed at this time. Ensure when making the appointment the office is aware this is following a hospital stay.) Patient Instructions/Handouts: *Surgery [facility] - After Heart Catheterization - Limb Driver Instructions, Heart Attack (DC) Discharge Disposition: LEFT AGAINST MEDICAL ADVICE
== END 2023-08-14 13:00 | disposition left against medical advice (07) | DRG 321 ==
LOC: EC 04:25 → 2SICU 04:42 → 3SCARD 08-11 05:22
PROVIDERS: ADMIT Hospitalist; ATTEND Hospitalist
PROC: 4A023N7 Measurement of Cardiac Sampling and Pressure, Left Heart, Percutaneous Approach (ICD-10-PCS; principal; 2023-08-10 04:42)
PROC: 02703ZZ Dilation of Coronary Artery, One Artery, Percutaneous Approach (ICD-10-PCS; principal; 2023-08-10 04:42)
PROC: B2111ZZ Fluoroscopy of Multiple Coronary Arteries using Low Osmolar Contrast (ICD-10-PCS; principal; 2023-08-10 04:42)
PROC: B240ZZ3 Ultrasonography of Single Coronary Artery, Intravascular (ICD-10-PCS; principal; 2023-08-10 04:42)
PROC: 027034Z Dilation of Coronary Artery, One Artery with Drug-eluting Intraluminal Device, Percutaneous Approach (ICD-10-PCS; principal; 2023-08-10 04:42)
PROC: 02703ZZ Dilation of Coronary Artery, One Artery, Percutaneous Approach (ICD-10-PCS; 2023-08-12 09:00)
PROC: B2111ZZ Fluoroscopy of Multiple Coronary Arteries using Low Osmolar Contrast (ICD-10-PCS; 2023-08-12 09:00)
PROC: B240ZZ3 Ultrasonography of Single Coronary Artery, Intravascular (ICD-10-PCS; 2023-08-12 09:00)
PROC: 4A023N7 Measurement of Cardiac Sampling and Pressure, Left Heart, Percutaneous Approach (ICD-10-PCS; 2023-08-12 09:00)
DX: T82.855A Stenosis of coronary artery stent, initial encounter (principal); I21.09 ST elevation (STEMI) myocardial infarction involving other coronary artery of anterior wall; I10 Essential (primary) hypertension; E78.5 Hyperlipidemia, unspecified; J44.9 Chronic obstructive pulmonary disease, unspecified; I25.82 Chronic total occlusion of coronary artery; I25.5 Ischemic cardiomyopathy; I25.10 Atherosclerotic heart disease of native coronary artery without angina pectoris; I25.2 Old myocardial infarction; Z95.5 Presence of coronary angioplasty implant and graft; Z88.7 Allergy status to serum and vaccine; Z28.310 Unvaccinated for COVID-19; Z79.899 Other long term (current) drug therapy; Z79.82 Long term (current) use of aspirin; Z79.02 Long term (current) use of antithrombotics/antiplatelets
CPT/HCPCS: 36415; 71045; 76937; 80048; 80053; 82565; 84484; 85025; 85610; 85730; 92920; 92978; 93005; 93306; 93458; 93880; 94760; 96374; 96375; 99285

== ENCOUNTER 2024-02-27 04:51 | Inpatient (IN) | payer BC, OTHER ==
--- NOTE | 2024-02-27 05:02 | ED ---
General Adult HPI - General Source: patient, EMS, RN notes reviewed, old records reviewed Mode of arrival: EMS <Trav Murry - Last Filed: 02/27/24 06:11> - General Source: patient, EMS, RN notes reviewed, old records reviewed Mode of arrival: EMS - History of Present Illness -: days(s) Radiation: non-radiation Severity scale (1-10): 10 Quality: aching Consistency: intermittent Improves with: none Worsens with: none Associated Symptoms: denies other symptoms Treatments Prior to Arrival: none <Chaitanya Marrero - Last Filed: 02/27/24 10:07> - General Chief complaint: Chest Pain Stated complaint: chest pain Time Seen by Provider: 02/27/24 04:54 - History of Present Illness Initial comments: 63-year-old male presenting for evaluation of lightheadedness, diarrhea and rectal bleeding. Patient had contacted paramedics after 3 total episodes of diarrhea which included bright red blood. Patient states he began feeling lightheaded. He states that he does have previous history of coronary artery disease. He states he is on antiplatelet medication. He denies chest pain or dyspnea. Denies fever. Denies current abdominal pain (Trav Murry) This is a 63-year-old male to ER for evaluation of blood in the rectum blood in the stool bright red blood. Patient states he is malodorous, symptoms started last night, history of colonoscopy a week ago colonoscopy was upper and lower secondary to recent significant weight loss unexplained (Chaitanya Marrero) - Related Data Home Medications Medication Instructions Recorded Confirmed Clopidogrel [Plavix] 75 mg PO DAILY 01/05/14 08/10/23 Bempedoic Acid/Ezetimibe [Nexlizet 1 tab PO DAILY 08/10/23 08/10/23 180-10 mg Tablet] Enalapril [Vasotec] 10 mg PO DAILY 08/10/23 08/10/23 Nitroglycerin Sl Tabs [Nitrostat] 0.4 mg SUBLINGUAL Q5M PRN 08/10/23 08/10/23 icosapent ethyL [Icosapent Ethyl] 2 gm PO BID 08/10/23 08/10/23 Previous Rx's Medication Instructions Recorded Aspirin 81 mg PO DAILY tab 08/14/23 Atorvastatin [Lipitor] 40 mg PO DAILY #30 tab 08/14/23 Isosorbide Mononitrate ER [Imdur] 30 mg PO DAILY 30 Days #30 tab 08/14/23 Metoprolol Succinate (ER) [Toprol 25 mg PO DAILY 30 Days #30 tab 08/14/23 XL] Ticagrelor [Brilinta] 90 mg PO BID 30 Days #60 tab 08/14/23 lisinopriL [Zestril] 20 mg PO DAILY 30 Days #30 tab 08/14/23 Allergies Allergy/AdvReac Type Severity Reaction Status Date / Time influenza virus vaccine, Allergy Unknown Verified 02/27/24 04:55 specific pneumococcal vaccine Allergy Unknown Verified 02/27/24 04:55 [id number] Reductase AdvReac muscle Verified 02/27/24 04:55 Inhibitor aches/ body aches Review of Systems ROS Other: All systems not noted in ROS Statement are negative. <Trav Murry - Last Filed: 02/27/24 06:11> ROS Other: All systems not noted in ROS Statement are negative. <Chaitayna Marrero - Last Filed: 02/27/24 10:07> ROS Statement: Those systems with pertinent positive or pertinent negative responses have been documented in the HPI. Past Medical History Past Medical History: Hyperlipidemia, Hypertension, Myocardial Infarction ([place]) Additional Past Medical History / Comment(s): [place] Last Myocardial Infarction Date:: 2015 History of Any Multi-Drug Resistant Organisms: None Reported Past Surgical History: Heart Catheterization With Stent, Tonsillectomy Additional Past Surgical History / Comment(s): coronary stents x4 Date of Last Stent Placement:: 2021 Past Psychological History: No Psychological Hx Reported Smoking Status: Never smoker Past Alcohol Use History: None Reported Past Drug Use History: None Reported <Trav Murry - Last Filed: 02/27/24 06:11> General Exam General appearance: alert, in no apparent distress Head exam: Present: atraumatic, normocephalic Eye exam: Present: normal appearance, PERRL ENT exam: Present: normal exam Neck exam: Present: normal inspection. Absent: tenderness, meningismus Respiratory exam: Present: normal lung sounds bilaterally. Absent: respiratory distress, wheezes Cardiovascular Exam: Present: regular rate, normal rhythm GI/Abdominal exam: Present: soft. Absent: distended, tenderness, guarding Extremities exam: Present: normal inspection, normal capillary refill. Absent: pedal edema Neurological exam: Present: alert, oriented X3, CN II-XII intact. Absent: motor sensory deficit Psychiatric exam: Present: normal affect, normal mood Skin exam: Present: warm, dry, intact. Absent: cyanosis, diaphoretic, pallor <Trav Murry Soy - Last Filed: 02/27/24 06:11> General appearance: alert, in no apparent distress Head exam: Present: atraumatic, normocephalic, normal inspection Eye exam: Present: normal appearance, PERRL, EOMI. Absent: scleral icterus, conjunctival injection, periorbital swelling ENT exam: Present: normal exam, mucous membranes moist Neck exam: Present: normal inspection. Absent: tenderness, meningismus, lymphadenopathy Respiratory exam: Present: normal lung sounds bilaterally. Absent: respiratory distress, wheezes, rales, rhonchi, stridor Cardiovascular Exam: Present: regular rate, normal rhythm, normal heart sounds. Absent: systolic murmur, diastolic murmur, rubs, gallop, clicks GI/Abdominal exam: Present: soft, normal bowel sounds. Absent: distended, tenderness, guarding, rebound, rigid Rectal exam: Present: bloody stool Extremities exam: Present: normal inspection, full ROM, normal capillary refill. Absent: tenderness, pedal edema, joint swelling, calf tenderness Back exam: Present: normal inspection Neurological exam: Present: alert, oriented X3, CN II-XII intact Psychiatric exam: Present: normal affect, normal mood Skin exam: Present: warm, dry, intact, normal color. Absent: rash <Chaitanya Marrero - Last Filed: 02/27/24 10:07> Course <Trav Murry N - Last Filed: 02/27/24 06:11> <Chaitanya Marrero - Last Filed: 02/27/24 10:07> Vital Signs 02/27/24 02/27/24 02/27/24 04:52 05:06 05:15 Temperature 97.6 F Pulse Rate 64 64 62 Respiratory 19 16 18 Rate Blood Pressure 93/78 95/82 118/78 O2 Sat by Pulse 97 100 100 Oximetry 02/27/24 02/27/24 02/27/24 05:30 05:40 06:10 Temperature Pulse Rate 65 60 70 Respiratory 20 15 20 Rate Blood Pressure 129/80 116/74 108/68 O2 Sat by Pulse 100 100 100 Oximetry 02/27/24 07:00 Temperature Pulse Rate 73 Respiratory 18 Rate Blood Pressure 108/68 O2 Sat by Pulse 99 Oximetry - Reevaluation(s) Reevaluation #1: 02/27/24 0510 There was concern for ST segment elevation manager dairy EKG. Patient has no signs of ACS. I discussed case with Dr. Duron for cardiology, not felt to represent ST segment elevated [place] given the clinical presentation. Troponin level will be checked. (Trav Murry) 02/27/24 08:27 Medical records reviewed (Chaitanya Marrero) Reevaluation #2: 02/27/24 08:27 Patient still with bright red blood per rectum 02/27/24 08:27 Recheck CBC (Chaitanya Marrero) Reevaluation #3: 02/27/24 08:27 Patient informed of results and questions answered (Chaitanya Marrero) Reevaluation #4: Was pt. sent in by a medical professional or institution (, PA, HIDE SALTER, urgent care, hospital, or usp...) When possible be specific @ -no Did you speak to anyone other than the patient for history (EMS, parent, family, police, friend...)? What history was obtained from this source @ -no Did you review nursing and triage notes (agree or disagree)? Why? @ -agree Are old charts reviewed (outside hosp., previous admission, EMS record, old EKG, old radiological studies, urgent care reports/EKG's, usp records)? Report findings @ -yes Differential Diagnosis (chest pain, altered mental status, abdominal pain women, abdominal pain men, vaginal bleeding, weakness, fever, dyspnea, syncope, headache, dizziness, GI bleed, back pain, seizure, CVA, palpatations, mental health, musculoskeletal)? @ -prior EKG interpreted by me (3pts min.). @ -yes X-rays interpreted by me (1pt min.). @ -yes negative for acute disease CT interpreted by me (1pt min.). @ -no U/S interpreted by me (1pt. min.). @ -no What testing was considered but not performed or refused? (CT, X-rays, U/S, labs)? Why? @ -none What meds were considered but not given or refused? Why? @ -none Did you discuss the management of the patient with other professionals (professionals i.e. , PA, HIDE SALTER, lab, RT, psych nurse, social work case manager, patent lawyer, teacher, service officer, special education case manager)? Give summary @ -no Was smoking cessation discussed for >3mins.? @ -no Was critical care preformed (if so, how long)? @ -no Were there social determinants of health that impacted care today? How? (Homelessness, low income, unemployed, alcoholism, drug addiction, transportation, low edu. Level, literacy, decrease access to med. care, alf, rehab)? @ -none Was there de-escalation of care discussed even if they declined (Discuss DNR or withdrawal of care, Hospice)? DNR status @ -no What co-morbidities impacted this encounter? (DM, HTN, Smoking, COPD, CAD, Cancer, CVA, ARF, Chemo, Hep., AIDS, mental health diagnosis, sleep apnea, morbid obesity)? @ -none Was patient admitted / discharged? Hospital course, mention meds given and route, prescriptions, significant lab abnormalities, going to OR and other pertinent info. @ - Undiagnosed new problem with uncertain prognosis? @ -no Drug Therapy requiring intensive monitoring for toxicity (Heparin, Nitro, Insulin, Cardizem)? @ -no Were any procedures done? @ -no Diagnosis/symptom? @ - Acute, or Chronic, or Acute on Chronic? @ -Acute Uncomplicated (without systemic symptoms) or Complicated (systemic symptoms)? @ -Complicated Side effects of treatment? @ -no Exacerbation, Progression, or Severe Exacerbation? @ -exacerbation Poses a threat to life or bodily function? How? (Chest pain, [place], [place], pneumonia, PE, COPD, DKA, ARF, appy, cholecystitis, CVA, Diverticulitis, Homicidal, Eufemia cidal, threat to staff... and all critical care pts) @ -yes (Chaitanya Marrero) Reevaluation #5: Differential GI Bleed: Esophageal varices, aortoenteric fistula, Azra-Contreras, gastritis, peptic ulcer disease, diverticulosis, inflammatory bowel disease, hemorrhoids, fissure, colitis, malignancy, Meckels diverticulum, this is not meant to be an all-inclusive list. (Chaitanya Marrero) Medical Decision Making - Lab Data Result diagrams: 02/27/24 04:55 02/27/24 05:02 <Trav Murry Soy - Last Filed: 02/27/24 06:11> - Lab Data Result diagrams: 02/27/24 08:26 02/27/24 05:02 - Radiology Data Radiology results: report reviewed (CT abdomen pelvis is negative for acute disease), image reviewed <Chaitanya Marrero - Last Filed: 02/27/24 10:07> - Medical Decision Making Was pt. sent in by a medical professional or institution (, PA, HIDE SALTER, urgent care, hospital, or usp...) When possible be specific @ -No Did you speak to anyone other than the patient for history (EMS, parent, family, police, friend...)? What history was obtained from this source @ -No Did you review nursing and triage notes (agree or disagree)? Why? @ -I reviewed and agree with nursing and triage notes Were old charts reviewed (outside hosp., previous admission, EMS record, old EKG, old radiological studies, urgent care reports/EKG's, usp records)? Report findings @ -No old charts were reviewed Differential GI Bleed: Esophageal varices, aortoenteric fistula, Azra-Contreras, gastritis, peptic ulcer disease, diverticulosis, inflammatory bowel disease, hemorrhoids, fissure, colitis, malignancy, Meckels diverticulum, this is not meant to be an all- inclusive list. EKG interpreted by me (3pts min.). @ -[EKG: Narrow complex rhythm rate of 64, QRS duration 85, QTc 400, there is significant artifact limiting assessment but I do not see any ST segment elevation. X-rays interpreted by me (1pt min.). @Chest x-ray negative for acute cardiopulmonary finding CT interpreted by me (1pt min.). @ -CT of the abdomen pelvis has been ordered, results pending U/S interpreted by me (1pt. min.). @ -None done What testing was considered but not performed or refused? (CT, X-rays, U/S, labs)? Why? @ -None What meds were considered but not given or refused? Why? @ -None Did you discuss the management of the patient with other professionals (professionals i.e. ., PA, HIDE SALTER, lab, RT, psych nurse, social work case manager, patent lawyer, teacher, service officer, special education case manager)? Give summary @ Dr. Duron, Dr. Block will admit. Was smoking cessation discussed for >3mins.? @ -No Was critical care preformed (if so, how long)? @ -No Were there social determinants of health that impacted care today? How? (Homelessness, low income, unemployed, alcoholism, drug addiction, transportation, low edu. Level, literacy, decrease access to med. care, alf, rehab)? @ -No Was there de-escalation of care discussed even if they declined (Discuss DNR or withdrawal of care, Hospice)? DNR status @ -No What co-morbidities impacted this encounter? (DM, HTN, Smoking, COPD, CAD, Cancer, CVA, ARF, Chemo, Hep., AIDS, mental health diagnosis, sleep apnea, morbid obesity)? @ CAD Was patient admitted / discharged? Hospital course, mention meds given and route, prescriptions, significant lab abnormalities, going to OR and other pertinent info. @ -63-year-old male presenting with bright red rectal bleeding, lightheadedness. Patient states he had several episodes of diarrhea. He states he had a colonoscopy within the last 1 week. Uncertain of results. Try testing, and CT imaging are pending. Care signed out at shift change awaiting these results. (Trav Murry) 63 male with GI bleed here in the emergency department. We did recheck patient's hemoglobin has initially had a drop from about 18-13 recheck has gone down about 1, patient will be admitted for GI bleed (Chaitanya Marrero) - Lab Data Lab Results 02/27/24 02/27/24 02/27/24 Range/Units 04:55 05:02 05:02 WBC 5.6 (3.8-10.6) k/uL RBC 3.99 L (4.30-5.90) m/uL Hgb 13.2 (13.0-17.5) gm/dL Hct 38.3 L (39.0-53.0) % MCV 95.8 (80.0-100.0) fL MCH 33.1 (25.0-35.0) pg MCHC 34.6 (31.0-37.0) g/dL RDW 11.8 (11.5-15.5) % Plt Count 170 (150-450) k/uL MPV 9.6 Neutrophils % 65 % Lymphocytes % 23 % Monocytes % 7 % Eosinophils % 3 % Basophils % 1 % Neutrophils # 3.6 (1.3-7.7) k/uL Lymphocytes # 1.3 (1.0-4.8) k/uL Monocytes # 0.4 (0-1.0) k/uL Eosinophils # 0.2 (0-0.7) k/uL Basophils # 0.0 (0-0.2) k/uL PT 12.4 (10.0-12.5) sec INR 1.2 H (<1.2) APTT 21.6 L (22.0-30.0) sec Sodium 136 L (137-145) mmol/L Potassium 4.4 (3.5-5.1) mmol/L Chloride 108 H (98-107) mmol/L Carbon Dioxide 21 L (22-30) mmol/L Anion Gap 7 mmol/L BUN 24 H (9-20) mg/dL Creatinine 1.30 H (0.66-1.25) mg/dL Est GFR (CKD-EPI)AfAm 67 (>60 ml/min/1.73 sqM) Est GFR (CKD-EPI)NonAf 58 (>60 ml/min/1.73 sqM) Glucose 125 H (74-99) mg/dL Calcium 8.5 (8.4-10.2) mg/dL Magnesium 1.9 (1.6-2.3) mg/dL Total Bilirubin 0.5 (0.2-1.3) mg/dL AST 17 (17-59) U/L ALT 13 (4-49) U/L Alkaline Phosphatase 48 (38-126) U/L Troponin I (0.000-0.034) ng/mL Total Protein 5.2 L (6.3-8.2) g/dL Albumin 3.4 L (3.5-5.0) g/dL Blood Type Blood Type Confirm Blood Type Recheck Bld Type Recheck Status Antibody Screen Spec Expiration Date 02/27/24 02/27/24 02/27/24 Range/Units 05:02 05:15 05:20 WBC (3.8-10.6) k/uL RBC (4.30-5.90) m/uL Hgb (13.0-17.5) gm/dL Hct (39.0-53.0) % MCV (80.0-100.0) fL MCH (25.0-35.0) pg MCHC (31.0-37.0) g/dL RDW (11.5-15.5) % Plt Count (150-450) k/uL MPV Neutrophils % % Lymphocytes % % Monocytes % % Eosinophils % % Basophils % % Neutrophils # (1.3-7.7) k/uL Lymphocytes # (1.0-4.8) k/uL Monocytes # (0-1.0) k/uL Eosinophils # (0-0.7) k/uL Basophils # (0-0.2) k/uL PT (10.0-12.5) sec INR (<1.2) APTT (22.0-30.0) sec Sodium (137-145) mmol/L Potassium (3.5-5.1) mmol/L Chloride (98-107) mmol/L Carbon Dioxide (22-30) mmol/L Anion Gap mmol/L BUN (9-20) mg/dL Creatinine (0.66-1.25) mg/dL Est GFR (CKD-EPI)AfAm (>60 ml/min/1.73 sqM) Est GFR (CKD-EPI)NonAf (>60 ml/min/1.73 sqM) Glucose (74-99) mg/dL Calcium (8.4-10.2) mg/dL Magnesium (1.6-2.3) mg/dL Total Bilirubin (0.2-1.3) mg/dL AST (17-59) U/L ALT (4-49) U/L Alkaline Phosphatase (38-126) U/L Troponin I <0.012 (0.000-0.034) ng/mL Total Protein (6.3-8.2) g/dL Albumin (3.5-5.0) g/dL Blood Type B Positive Blood Type Confirm B Positive Blood Type Recheck No Previous Record Bld Type Recheck Status CABO Indicated Antibody Screen NEGATIVE Spec Expiration Date 03/01/2024 - 231402/27/24 Range/Units 08:26 WBC 6.0 (3.8-10.6) k/uL RBC 4.03 L (4.30-5.90) m/uL Hgb 12.7 L (13.0-17.5) gm/dL Hct 38.7 L (39.0-53.0) % MCV 96.1 (80.0-100.0) fL MCH 31.5 (25.0-35.0) pg MCHC 32.8 (31.0-37.0) g/dL RDW 11.6 (11.5-15.5) % Plt Count 201 (150-450) k/uL MPV 8.5 Neutrophils % 76 % Lymphocytes % 16 % Monocytes % 5 % Eosinophils % 2 % Basophils % 0 % Neutrophils # 4.6 (1.3-7.7) k/uL Lymphocytes # 1.0 (1.0-4.8) k/uL Monocytes # 0.3 (0-1.0) k/uL Eosinophils # 0.1 (0-0.7) k/uL Basophils # 0.0 (0-0.2) k/uL PT (10.0-12.5) sec INR (<1.2) APTT (22.0-30.0) sec Sodium (137-145) mmol/L Potassium (3.5-5.1) mmol/L Chloride (98-107) mmol/L Carbon Dioxide (22-30) mmol/L Anion Gap mmol/L BUN (9-20) mg/dL Creatinine (0.66-1.25) mg/dL Est GFR (CKD-EPI)AfAm (>60 ml/min/1.73 sqM) Est GFR (CKD-EPI)NonAf (>60 ml/min/1.73 sqM) Glucose (74-99) mg/dL Calcium (8.4-10.2) mg/dL Magnesium (1.6-2.3) mg/dL Total Bilirubin (0.2-1.3) mg/dL AST (17-59) U/L ALT (4-49) U/L Alkaline Phosphatase (38-126) U/L Troponin I (0.000-0.034) ng/mL Total Protein (6.3-8.2) g/dL Albumin (3.5-5.0) g/dL Blood Type Blood Type Confirm Blood Type Recheck Bld Type Recheck Status Antibody Screen Spec Expiration Date Disposition Is patient prescribed a controlled substance at d/c from ED?: No Time of Disposition: 06:14 <Trav Murry - Last Filed: 02/27/24 06:11> Is patient prescribed a controlled substance at d/c from ED?: No <Chaitanya Marrero - Last Filed: 02/27/24 10:07> Clinical Impression: Hematochezia, Lower gastrointestinal hemorrhage Disposition: ADMITTED IP TO THIS [facility] Condition: Serious Referrals: Harley Khan DO [Primary Care Provider] - 1-2 days
[2024-02-27] MEDS: SODIUM CHLORIDE 0.9% 1,000 ML IV ONE ×3 (05:12→15:58)
[2024-02-27 05:25] LABS: Basophils % (A) 1 %; Eosinophils # (A) 0.2 k/uL (0-0.7); Eosinophils % (A) 3 %; HCT 38.3 % (39.0-53.0); HGB 13.2 gm/dL (13.0-17.5); Lymphocytes # (A) 1.3 k/uL (1.0-4.8); Lymphocytes % (A) 23 %; MCH 33.1 pg (25.0-35.0); MCHC 34.6 g/dL (31.0-37.0); MCV 95.8 fL (80.0-100.0); Mean Platelet Volume 9.6; Monocytes # (A) 0.4 k/uL (0-1.0); Monocytes % (A) 7 %; Neutrophils # (A) 3.6 k/uL (1.3-7.7); Neutrophils % (A) 65 %; Platelet Count 170 k/uL (150-450); RBC 3.99 m/uL (4.30-5.90); RDW 11.8 % (11.5-15.5); WBC 5.6 k/uL (3.8-10.6)
--- NOTE | 2024-02-27 05:41 | XR ---
EXAM: XR Chest, 1 View CLINICAL HISTORY: dizzy TECHNIQUE: Frontal view of the chest. COMPARISON: August 10, 2023 FINDINGS: Lungs: Unremarkable. No acute infiltration, atelectasis or mass. Pleural space: Unremarkable. No pneumothorax or pleural fluid. Heart: Unremarkable. No cardiomegaly. Mediastinum: Unremarkable. Normal mediastinal contour. Bones/joints: No acute findings. IMPRESSION: No acute findings in the chest.
[2024-02-27 05:44] LABS: INR 1.2 (<1.2); Prothrombin Time 12.4 sec (10.0-12.5)
[2024-02-27 05:50] LABS: ALT 13 U/L (4-49); AST 17 U/L (17-59); African American GFR (CKD) 67 (>60 ml/min/1.73 sqM); Albumin 3.4 g/dL (3.5-5.0); Alkaline Phosphatase 48 U/L (38-126); Anion Gap 7 mmol/L; Blood Urea Nitrogen 24 mg/dL (9-20); Calcium 8.5 mg/dL (8.4-10.2); Carbon Dioxide 21 mmol/L (22-30); Chloride 108 mmol/L (98-107); Glucose 125 mg/dL (74-99); Magnesium 1.9 mg/dL (1.6-2.3); Non-African American GFR(CKD) 58 (>60 ml/min/1.73 sqM); Potassium 4.4 mmol/L (3.5-5.1); Sodium 136 mmol/L (137-145); Total Bilirubin 0.5 mg/dL (0.2-1.3); Total Protein 5.2 g/dL (6.3-8.2)
[2024-02-27 05:51] LABS: Partial Thromboplastin Time 21.6 sec (22.0-30.0)
--- NOTE | 2024-02-27 07:36 | CT ---
EXAM: CT Abdomen and Pelvis With Intravenous Contrast CLINICAL HISTORY: ITS.REASON CT Reason: GI bleed TECHNIQUE: Axial computed tomography images of the abdomen and pelvis with intravenous contrast. CTDI is 26.6 mGy and DLP is 887.9 mGy-cm. This CT exam was performed using one or more of the following dose reduction techniques: automated exposure control, adjustment of the mA and/or kV according to patient size, and/or use of iterative reconstruction technique. COMPARISON: No relevant prior studies available. FINDINGS: Lung bases: Unremarkable. No mass. No consolidation. Heart: Coronary artery calcifications. ABDOMEN: Liver: Unremarkable. No mass. Gallbladder and bile ducts: Unremarkable. No calcified stones. No ductal dilation. Pancreas: Unremarkable. No mass. No ductal dilation. Spleen: Unremarkable. No splenomegaly. Adrenals: Unremarkable. No mass. Kidneys and ureters: Unremarkable. No solid mass. No hydronephrosis. Stomach and bowel: No gross evidence of intraluminal hemorrhage identified. If there is further concern for gastrointestinal hemorrhage, consider multiphasic imaging with noncontrast phase or scintigraphic imaging. No evidence of bowel obstruction. No mucosal thickening. PELVIS: Appendix: Normal appendix. Bladder: Unremarkable. No mass. Reproductive: Unremarkable as visualized. ABDOMEN and PELVIS: Intraperitoneal space: Unremarkable. No free air. No significant fluid collection. Bones/joints: Degenerative changes in the spine. No acute fracture. No dislocation. Soft tissues: Umbilical hernia containing fat. Right inguinal hernia containing fat. Vasculature: Atherosclerotic disease. Lymph nodes: Unremarkable. No enlarged lymph nodes. IMPRESSION: 1. No gross evidence of intraluminal hemorrhage identified. If there is further concern for gastrointestinal hemorrhage, consider multiphasic imaging with noncontrast phase or scintigraphic imaging. 2. No other acute findings. 3. Incidental findings as described.
[2024-02-27] MEDS: PANTOPRAZOLE 40 MG/10 ML VIAL IVP STA (08:33)
[2024-02-27 08:40] LABS: Basophils % (A) 0 %; Eosinophils # (A) 0.1 k/uL (0-0.7); Eosinophils % (A) 2 %; HCT 38.7 % (39.0-53.0); HGB 12.7 gm/dL (13.0-17.5); Lymphocytes % (A) 16 %; MCH 31.5 pg (25.0-35.0); MCHC 32.8 g/dL (31.0-37.0); MCV 96.1 fL (80.0-100.0); Mean Platelet Volume 8.5; Monocytes # (A) 0.3 k/uL (0-1.0); Monocytes % (A) 5 %; Neutrophils # (A) 4.6 k/uL (1.3-7.7); Neutrophils % (A) 76 %; Platelet Count 201 k/uL (150-450); RBC 4.03 m/uL (4.30-5.90); RDW 11.6 % (11.5-15.5)
[2024-02-27] MEDS ORDERED: NALOXONE 0.4 MG/ML 1 ML VIAL IV PRN ×2 (10:02→11:30)
[2024-02-27] MEDS ORDERED: ONDANSETRON 4 MG/2 ML VIAL IVP PRN (10:02)
[2024-02-27] MEDS ORDERED: MORPHINE SULFATE 4 MG/ML SYRINGE IV PRN (10:02)
[2024-02-27] MEDS: SODIUM CHLORIDE 0.9% 1,000 ML IV SCH (10:30)
[2024-02-27 12:17] LABS: ALT 13 U/L (4-49); AST 15 U/L (17-59); African American GFR (CKD) >90 (>60 ml/min/1.73 sqM); Albumin 2.9 g/dL (3.5-5.0); Alkaline Phosphatase 37 U/L (38-126); Anion Gap 5 mmol/L; Blood Urea Nitrogen 21 mg/dL (9-20); Calcium 8.2 mg/dL (8.4-10.2); Carbon Dioxide 20 mmol/L (22-30); Chloride 113 mmol/L (98-107); Glucose 110 mg/dL (74-99); Non-African American GFR(CKD) 87 (>60 ml/min/1.73 sqM); Potassium 4.5 mmol/L (3.5-5.1); Sodium 138 mmol/L (137-145); Total Bilirubin 0.7 mg/dL (0.2-1.3); Total Protein 4.7 g/dL (6.3-8.2)
--- NOTE | 2024-02-27 12:25 | P.CONS ---
History of Present Illness - Reason for Consult Consult date: 02/27/24 known Requesting physician: Chaitanya Marrero - Chief Complaint Rectal bleeding - History of Present Illness This is a pleasant 63-year-old male who presented around 5 AM to the emergency department with complaints rectal bleeding since around midnight. He states he has had multiple episodes of rectal bleeding reports that as bright red blood, not associated with any abdominal pain, nausea or vomiting. He had a CT of the abdomen pelvis with contrast with no acute findings. Denies any previous history of GI bleed. He did undergo recent EGD and colonoscopy last week Tuesday at [facility] with 1 cm cecal polyp status post polypectomy and EGD with findings of mild gastritis.. That was done for concerns for weight loss. He states he is unsure what the findings were. He does have a history of hyperlipidemia, hypertension, myocardial infarction, and coronary artery disease status post stents and is on Plavix aspirin and Brilinta according to his chart. Patient states he does know that he is on an antiplatelet although he is unsure which one. Hemoglobin on admission was 13.2 with a drop to 12.7. Nursing reports he has had about 5 large bowel movements that are bright red to dark red since coming into the emergency department. Patient has been hypotensive, INR 1.2. 1 unit of blood has been ordered. He currently denies any abdominal pain or vomiting. States that he does get a little nauseous when his blood pressure drops. Currently getting IV hydration. With plans for being admitted to the intensive care unit. Review of Systems REVIEW OF SYSTEMS: CARDIOPULMONARY: No chest pain or shortness of breath. Gastrointestinal: No abdominal pain. No nausea or vomiting. No hematemesis, coffee-ground emesis. Rectal bleeding, bright red blood multiple times since midnight. GENITOURINARY: No dysuria or hematuria. MUSCULOSKELETAL: Reports normal range of motion. SKIN: No rashes. No jaundice. ENDOCRINE: No chills, fevers. No excessive weight gain or loss. No polydipsia or polyuria. PSYCHIATRIC: Unremarkable. NEUROLOGY: No change in mental status. Reports dizziness, lightheaded, no headache. ENT: Vision unremarkable. CONSTITUTIONAL: Reported recent weight loss. No fever, chills, night sweats. Past Medical History Past Medical History: Hyperlipidemia, Hypertension, Myocardial Infarction ([place]) Additional Past Medical History / Comment(s): [place] Last Myocardial Infarction Date:: 2015 History of Any Multi-Drug Resistant Organisms: None Reported Past Surgical History: Heart Catheterization With Stent, Tonsillectomy Additional Past Surgical History / Comment(s): coronary stents x4 Date of Last Stent Placement:: 2021 Past Psychological History: No Psychological Hx Reported Smoking Status: Never smoker Past Alcohol Use History: None Reported Past Drug Use History: None Reported Medications and Allergies Home Medications Medication Instructions Recorded Confirmed Type Clopidogrel [Plavix] 75 mg PO DAILY 01/05/14 02/27/24 History Bempedoic Acid/Ezetimibe [Nexlizet 1 tab PO DAILY 08/10/23 02/27/24 History 180-10 mg Tablet] icosapent ethyL [Icosapent Ethyl] 2 gm PO BID 08/10/23 02/27/24 History Enalapril [Vasotec] 5 mg PO DAILY 02/27/24 02/27/24 History Melatonin 10 mg PO HS PRN 02/27/24 02/27/24 History Rosuvastatin Calcium [Crestor] 5 mg PO DAILY 02/27/24 02/27/24 History Allergies Allergy/AdvReac Type Severity Reaction Status Date / Time influenza virus vaccine, Allergy Unknown Verified 02/27/24 12:36 specific pneumococcal vaccine Allergy Unknown Verified 02/27/24 12:36 [id number] Reductase AdvReac muscle Verified 02/27/24 12:36 Inhibitor aches/ body aches Physical Exam Vitals: Vital Signs Temp Pulse Resp BP Pulse Ox 02/27/24 11:17 108/67 02/27/24 11:13 98.4 F 80 22 84/57 97 02/27/24 10:00 77 18 109/73 98 02/27/24 09:00 72 18 107/71 99 02/27/24 07:00 73 18 108/68 99 02/27/24 06:10 70 20 108/68 100 02/27/24 05:40 60 15 116/74 100 02/27/24 05:30 65 20 129/80 100 02/27/24 05:15 62 18 118/78 100 02/27/24 05:06 64 16 95/82 100 02/27/24 04:52 97.6 F 64 19 93/78 97 Intake and Output 02/26/24 02/27/24 02/27/24 22:59 06:59 14:59 Other: Weight 77.111 kg General appearance: The patient is alert, oriented, appears in no acute distress. HET: Head is normocephalic and atraumatic. Conjunctiva pink. Sclera anicteric. Neck: Supple without lymphadenopathy. Trachea midline. Heart: Regular. Lungs: Equal expansion, normal respiratory effort. Abdomen: Soft, nontender, nondistended. Skin: No rashes. No jaundice. Extremities: Normal skin color and turgor. No pedal edema. Neurological: No focal deficits. Alert and oriented x3. Results CBC & Chem 7: 02/27/24 11:39 02/27/24 11:39 Labs: Abnormal Lab Results - Last 24 Hours (Table) 02/27/24 02/27/24 02/27/24 Range/Units 04:55 05:02 05:02 RBC 3.99 L (4.30-5.90) m/uL Hgb (13.0-17.5) gm/dL Hct 38.3 L (39.0-53.0) % INR 1.2 H (<1.2) APTT 21.6 L (22.0-30.0) sec Sodium 136 L (137-145) mmol/L Chloride 108 H (98-107) mmol/L Carbon Dioxide 21 L (22-30) mmol/L BUN 24 H (9-20) mg/dL Creatinine 1.30 H (0.66-1.25) mg/dL Glucose 125 H (74-99) mg/dL Total Protein 5.2 L (6.3-8.2) g/dL Albumin 3.4 L (3.5-5.0) g/dL Crossmatch 02/27/24 02/27/24 Range/Units 05:15 08:26 RBC 4.03 L (4.30-5.90) m/uL Hgb 12.7 L (13.0-17.5) gm/dL Hct 38.7 L (39.0-53.0) % INR (<1.2) APTT (22.0-30.0) sec Sodium (137-145) mmol/L Chloride (98-107) mmol/L Carbon Dioxide (22-30) mmol/L BUN (9-20) mg/dL Creatinine (0.66-1.25) mg/dL Glucose (74-99) mg/dL Total Protein (6.3-8.2) g/dL Albumin (3.5-5.0) g/dL Crossmatch See Detail Comments: CT abdomen and pelvis with IV contrast reports no gross evidence of intraluminal hemorrhage identified. If there is further concern for gastrointestinal hemorrhage consider multiphasic imaging with noncontrast phase of her scientific imaging. No other acute findings. Incidental findings as described. Assessment and Plan (1) Hematochezia Narrative/Plan: 63-year-old male presenting with multiple episodes of bright red blood per rectum with symptomatic anemia. Patient had EGD and colonoscopy about a week ago with cecal polyp removal which is likely source of lower GI bleed. Continue to treat symptomatically, transfuse as needed for hemoglobin less than 7. Hold antiplatelets. If bleeding does not stop, will need to procedd with colonoscopy. Current Visit: Yes Status: Acute Code(s): K92.1 - MELENA SNOMED Code(s): 784152689 (2) Coronary artery disease Current Visit: Yes Status: Acute Code(s): I25.10 - ATHSCL HEART DISEASE OF [place] CORONARY ARTERY W/O ANG PCTRS SNOMED Code(s): 86935761 Plan: 1. Continue symptomatic and supportive care 2. Continue IV hydration 3. Get blood as ordered 4. CBC every 4 hours transfuse for hemoglobin less than 7 5. Agree with ICU admission 6. Keep n.p.o. 7. Hold aspirin and plavix 8. Give 1 bottle of magnesium citrate 9. Will plan for colonoscopy this eveninghank you for this consultation, we will continue to follow closely. Dr. Zoraida Cabrera I agree with the dictator's note, documented as a scribe by Palma Eral.
[2024-02-27] MEDS: MAGNESIUM CITRATE 296 ML BOTTLE PO ONE (13:25)
[2024-02-27 13:41] LABS: HCT 35.4 % (39.0-53.0); HGB 11.7 gm/dL (13.0-17.5); MCH 32.4 pg (25.0-35.0); MCV 98.1 fL (80.0-100.0); Mean Platelet Volume 8.6; Platelet Count 190 k/uL (150-450); RBC 3.61 m/uL (4.30-5.90); RDW 11.7 % (11.5-15.5); WBC 4.3 k/uL (3.8-10.6)
[2024-02-27] MEDS ORDERED: PHENYLEPHRINE-0.9% NACL SYG 1,000 MCG/10 ML SYRINGE ONE (16:15)
[2024-02-27] MEDS: IV FLUID CONTINUATION 600 ML IV ONE (16:15)
[2024-02-27] MEDS ORDERED: PROPOFOL 10 MG/ML 20 ML VIAL IV ONE (16:15)
[2024-02-27] MEDS ORDERED: LIDOCAINE 2% (PF) 20 MG/ML 5 ML VIAL ONE (16:15)
[2024-02-27 16:22] LABS: HCT 34.2 % (39.0-53.0); HGB 11.3 gm/dL (13.0-17.5); MCH 31.7 pg (25.0-35.0); Mean Platelet Volume 8.4; Platelet Count 191 k/uL (150-450); RBC 3.56 m/uL (4.30-5.90); RDW 12.6 % (11.5-15.5); WBC 5.6 k/uL (3.8-10.6)
--- NOTE | 2024-02-27 16:50 | P.PCN ---
Date of Procedure: 02/27/24 Procedure(s) Performed: BRIEF HISTORY: Patient is a 63-year-old pleasant white male came to the emergency room early this morning with multiple episodes of bright red blood per rectum. He underwent a screening colonoscopy a week ago at [facility] and was noted to have a 1 cm broad-based polyp in the base of the cecum that was removed by snare polypectomy. He has been on aspirin and Plavix for underlying coronary artery disease with stent placement last year. He did well until yesterday. He had several episodes of bright red blood per rectum but started around midnight last night, came to the emergency room. Initial hemoglobin was 13 g/dL subsequently dropped to 11 g/dL. He became somewhat diaphoretic and tachycardic/hypotensive in the ER this afternoon needing clearance of PRBC transfusion. He is scheduled for emergent colonoscopy for possible post polypectomy GI bleed PROCEDURE PERFORMED: Colonoscopy with Endo Clip placement. PREOPERATIVE DIAGNOSIS: Post polypectomy lower GI bleed. IV sedation per Anesthesia. PROCEDURE: After informed consent was obtained, the patient, was brought into the endoscopy unit. IV sedation was administered by Anesthesia under continuous monitoring. Digital rectal examination was normal. Initially the Olympus CF-160 flexible video colonoscope was then inserted in the rectum, gradually advanced into the cecum without any difficulty. Careful examination was performed as the scope was gradually being withdrawn. Ileocecal valve and the appendiceal orifice were visualized and appeared normal. Prep was good. There was fresh blood noted throughout the entire colon. Thorough irrigation was performed. In the base of the cecum there was active bleeding identified. There was a 1 cm ulceration at the site of polypectomy in the base of the cecum with active spurting noted. 2 endoclips were placed following which hemostasis was achieved. Rest of the cecum, ascending colon, transverse colon, descending colon, sigmoid colon, and rectum appeared normal. Diverticulosis seen. Retroflexion was performed in the rectum and no lesions were seen. The patient tolerated the procedure well. IMPRESSION: Post polypectomy cecal ulcer with active bleeding s/p Endo Clip placement as described above with good hemostasis Scattered diverticulosis Rest of the colon appeared normal RECOMMENDATIONS: Findings of this examination were discussed with the patient . He will be transferred to the intensive care unit. Start him on a clear liquid diet. Monitor CBC every 6 hours..
[2024-02-27] MEDS: LACTATED RINGERS 1,000 ML IV ONE (17:25)
[2024-02-27] MEDS: ALBUMIN HUMAN 5% 250 ML in EMPTY BAG 1 BAG IVPB STA (17:35)
--- NOTE | 2024-02-27 17:48 | P.CNPUL ---
History of Present Illness Consult date: 02/27/24 Requesting physician: Josie Foster Reason for consult: other (Critical care management) Chief complaint: GI bleed History of present illness: This is a 63-year-old male patient with a known history of hypertension, hyperlipidemia, coronary artery disease with previous stent placement maintained on Plavix. He had been having issues with unexplained weight loss and 1 week ago he had undergone an upper and lower endoscopy at [facility]. He did have a polypectomy at that time. He presented here to the emergency room early this morning after developing dizziness, lightheadedness and rectal bleeding with bright red blood that started at approximately midnight. He presented here at [address] scan of the abdomen and pelvis revealed no gross evidence of intraluminal hemorrhage. No other acute findings noted. Chest x- ray revealed no acute pulmonary process. Initial hemoglobin 13.2. He did drop to 11.3. White count 5.6. Platelets 191. Sodium 138. Potassium 4.5. Bicarb 20. BUN 21. Creatinine 0.93. Glucose 110. He received 1 unit of packed red blood cells thus far. He was seen in consultation in the emergency department. He is having complaints of dizziness and lightheadedness. He is hypotensive. Afebrile. Maintaining good O2 saturation in the upper 90s on room air. He did undergo colonoscopy this afternoon and was found to have post polypectomy cecal ulcer with active bleeding, status post Endo Clip placement with good hemostasis. Evidence of scattered diverticulosis otherwise normal colon. He will be placed in the intensive care unit for closer observation. Review of Systems REVIEW OF SYSTEMS: CONSTITUTIONAL: Positive for dizziness, lightheadedness. Denies any recent significant weight loss or weight gain. EYES: Denies change in vision. EARS, NOSE, MOUTH, THROAT: Denies headaches, denies sore throat. CARDIOVASCULAR: Denies chest pain, palpitations or syncopal episodes. RESPIRATORY: Denies shortness of breath, cough, congestion or hemoptysis. GASTROINTESTINAL: Positive for bright red rectal bleeding GENITOURINARY: Denies hematuria, denies infections. MUSKULOSKELETAL: Denies pain, denies swelling. INTEGUMENTARY: Denies rash, denies eczema. NEUROLOGICAL: Denies recent memory loss, no recent seizure activity. PSYCHIATRIC: Denies anxiety, denies depression. HEMATOLOGIC/LYMPHATIC: Denies anemia, denies enlarged lymph nodes. Past Medical History Past Medical History: Hyperlipidemia, Hypertension, Myocardial Infarction ([place]) Additional Past Medical History / Comment(s): [place] Last Myocardial Infarction Date:: 2015 History of Any Multi-Drug Resistant Organisms: None Reported Past Surgical History: Heart Catheterization With Stent, Tonsillectomy Additional Past Surgical History / Comment(s): coronary stents x4 Date of Last Stent Placement:: 2021 Past Psychological History: No Psychological Hx Reported Smoking Status: Never smoker Past Alcohol Use History: None Reported Past Drug Use History: None Reported Medications and Allergies Home Medications Medication Instructions Recorded Confirmed Type Clopidogrel [Plavix] 75 mg PO DAILY 01/05/14 02/27/24 History Bempedoic Acid/Ezetimibe [Nexlizet 1 tab PO DAILY 08/10/23 02/27/24 History 180-10 mg Tablet] icosapent ethyL [Icosapent Ethyl] 2 gm PO BID 08/10/23 02/27/24 History Enalapril [Vasotec] 5 mg PO DAILY 02/27/24 02/27/24 History Melatonin 10 mg PO HS PRN 02/27/24 02/27/24 History Rosuvastatin Calcium [Crestor] 5 mg PO DAILY 02/27/24 02/27/24 History Allergies Allergy/AdvReac Type Severity Reaction Status Date / Time influenza virus vaccine, Allergy Unknown Verified 02/27/24 12:36 specific pneumococcal vaccine Allergy Unknown Verified 02/27/24 12:36 [id number] Reductase AdvReac muscle Verified 02/27/24 12:36 Inhibitor aches/ body aches Physical Exam Vitals: Vital Signs Temp Pulse Pulse Pulse Resp BP BP 02/27/24 17:20 77 16 76/41 02/27/24 17:07 77 14 95/60 02/27/24 16:51 98.3 F 80 16 87/54 02/27/24 16:05 98.1 F 74 19 113/71 02/27/24 15:30 83 20 106/67 02/27/24 15:00 108 H 18 113/75 02/27/24 14:03 97.9 F 87 22 114/80 02/27/24 13:30 113 H 22 98/67 02/27/24 13:00 81 18 100/66 02/27/24 12:30 97.9 F 81 16 99/58 02/27/24 12:10 97.7 F 75 16 105/63 02/27/24 12:00 97.7 F 75 16 94/69 02/27/24 11:17 108/67 02/27/24 11:13 98.4 F 80 22 84/57 02/27/24 10:30 82 17 110/72 02/27/24 10:00 77 18 109/73 02/27/24 09:00 72 18 107/71 02/27/24 07:00 73 18 108/68 02/27/24 06:10 70 20 108/68 02/27/24 05:40 60 15 116/74 02/27/24 05:30 65 20 129/80 02/27/24 05:15 62 18 118/78 02/27/24 05:06 64 16 95/82 02/27/24 04:52 97.6 F 64 19 93/78 Pulse Ox 02/27/24 17:20 97 02/27/24 17:07 97 02/27/24 16:51 97 02/27/24 16:05 99 02/27/24 15:30 98 02/27/24 15:00 97 02/27/24 14:03 99 02/27/24 13:30 100 02/27/24 13:00 100 02/27/24 12:30 02/27/24 12:10 99 02/27/24 12:00 100 02/27/24 11:17 02/27/24 11:13 97 02/27/24 10:30 99 02/27/24 10:00 98 02/27/24 09:00 99 02/27/24 07:00 99 02/27/24 06:10 100 02/27/24 05:40 100 02/27/24 05:30 100 02/27/24 05:15 100 02/27/24 05:06 100 02/27/24 04:52 97 Intake and Output 02/27/24 02/27/24 02/27/24 06:59 14:59 22:59 Intake Total 280 600 Balance 280 600 Intake: IV 600 Blood Product 280 Rc Pheresis 2 As3 Unit 280 [id number] Other: Weight 77.111 kg GENERAL EXAM: Alert, weak, pale 63-year-old male patient, on room air, fairly comfortable in no apparent distress. HEAD: Normocephalic. EYES: Normal reaction of pupils, equal size. NOSE: Clear with pink turbinates. THROAT: No erythema or exudates. NECK: No masses, no JVD. CHEST: No chest wall deformity. LUNGS: Equal air entry with no crackles, wheeze, rhonchi or dullness. CVS: S1 and S2 normal with no audible murmur, regular rhythm. ABDOMEN: No hepatosplenomegaly, normal bowel sounds, no guarding or rigidity. SPINE: No scoliosis or deformity SKIN: No rashes CENTRAL NERVOUS SYSTEM: No focal deficits, tone is normal in all 4 extremities. EXTREMITIES: There is no peripheral edema. No clubbing, no cyanosis. Peripheral pulses are intact. Results - Laboratory Findings CBC and BMP: 02/27/24 15:57 02/27/24 11:39 PT/INR, D-dimer PT 12.4 sec (10.0-12.5) 02/27/24 05:02 INR 1.2 (<1.2) H 02/27/24 05:02 Abnormal lab findings: Abnormal Labs 02/27/24 02/27/24 02/27/24 04:55 05:02 05:02 RBC 3.99 L Hgb Hct 38.3 L INR 1.2 H APTT 21.6 L Sodium 136 L Chloride 108 H Carbon Dioxide 21 L BUN 24 H Creatinine 1.30 H Glucose 125 H Calcium AST Alkaline Phosphatase Total Protein 5.2 L Albumin 3.4 L Crossmatch 02/27/24 02/27/24 02/27/24 05:15 08:26 11:39 RBC 4.03 L Hgb 12.7 L Hct 38.7 L INR APTT Sodium Chloride 113 H Carbon Dioxide 20 L BUN 21 H Creatinine Glucose 110 H Calcium 8.2 L AST 15 L Alkaline Phosphatase 37 L Total Protein 4.7 L Albumin 2.9 L Crossmatch See Detail 02/27/24 02/27/24 11:39 15:57 RBC 3.61 L 3.56 L Hgb 11.7 L 11.3 L Hct 35.4 L 34.2 L INR APTT Sodium Chloride Carbon Dioxide BUN Creatinine Glucose Calcium AST Alkaline Phosphatase Total Protein Albumin Crossmatch - Diagnostic Findings Chest x-ray: image reviewed Assessment and Plan Assessment: Acute gastrointestinal bleeding secondary to post polypectomy cecal ulcer with active bleeding, status post colonoscopy and Endo Clip placement with good hemostasis. Post procedure day #0 Hypotension secondary to above requiring 1 unit of packed red blood cells and fluid resuscitation Recent colonoscopy with polypectomy 1 week ago at [facility] History of unexplained weight loss leading to the EGD colonoscopy last week History of coronary artery disease status previous stent placements x 4 and maintained on Plavix History of hypertension Hyperlipidemia Plan: The patient was seen and evaluated Chest x-ray, labs and medications reviewed Status post colonoscopy with Endo Clip placement Continue to monitor hemoglobin closely Continue fluid resuscitation We will continue to monitor him closely here in the ICU We will continue to follow and make further recommendations based on his clinical status I have personally seen and examined the patient, performed the documentation and the assessment and plan as written. Number of minutes spent on the visit: 20.
[2024-02-27 18:30] LABS: HCT 33.1 % (39.0-53.0); HGB 10.7 gm/dL (13.0-17.5); MCH 31.1 pg (25.0-35.0); MCHC 32.5 g/dL (31.0-37.0); MCV 95.7 fL (80.0-100.0); Mean Platelet Volume 8.7; Platelet Count 171 k/uL (150-450); RBC 3.46 m/uL (4.30-5.90); RDW 12.8 % (11.5-15.5); WBC 6.1 k/uL (3.8-10.6)
[2024-02-27 18:50] LABS: Glucose,Whole Blood 139 mg/dL (70-110)
[2024-02-27 20:39] LABS: HCT 28.2 % (39.0-53.0); HGB 9.3 gm/dL (13.0-17.5); MCV 96.9 fL (80.0-100.0); Mean Platelet Volume 8.9; Platelet Count 143 k/uL (150-450); RBC 2.92 m/uL (4.30-5.90); RDW 12.8 % (11.5-15.5); WBC 5.1 k/uL (3.8-10.6)
[2024-02-27] MEDS: PANTOPRAZOLE 40 MG/10 ML VIAL IV SCH (20:47)
--- NOTE | 2024-02-27 22:13 | P.HPIM ---
History of Present Illness H&P Date: 02/27/24 Chief Complaint: Blood per rectum Patient is a 63-year-old male with a past medical history of hypertension, hyperlipidemia, history of CT, coronary disease s/p stent placement presents to ER with complaints of rectal bleeding. Patient states that he started having multiple episodes of bright red blood per rectum started on midnight yesterday. Denies any complaints of abdominal pain or nausea or vomiting. Patient underwent EGD and colonoscopy last week due to concern for weight loss at [facility] found to have 1 cm cecal polyp status post polypectomy and EGD showed findings of mild gastritis. CT of the abdomen pelvis was done in the ER showed no gross evidence of intraluminal hemorrhage identified. If there is further concern for GI hemorrhage consider multiphasic imaging with noncontrast scintigraphic imaging. No other acute findings. Chest x-ray showed no acute findings in the chest. EKG showed supraventricular rhythm. Heart rate 64 Laboratory data showed WBC 5.6 hemoglobin 13.2 and dropped down to 11.7 this afternoon, sodium 136 potassium 4.4 chloride 108 bicarb is 21 BUN 24 and creatinine 1.3 and blood sugar 125 liver enzymes are not elevated albumin 3.4 troponin x 1 negative. Patient had another episode of large bowel movement with bright red blood while in the ER. Patient was taken to emergent colonoscopy followed by admission to ICU. Review of Systems Constitutional: Patient denies any fever or chills . No generalized weakness or weight loss. Abdomen: Patient denied nausea vomiting and diarrhea and abdominal pain. Bright red blood per rectum Cardiovascular: Patient denies any chest pain or short of breath no palpitations. Respiratory: patient denied any cough or sputum production. No shortness of breath Neurologic: Patient denied any numbness or tingling. no headache. Musculoskeletal: Patient denies any complaints of joint swelling or deformity. Skin: Negative Psychiatric: Negative Endocrine: No heat or cold intolerance. No recent weight gain. Genitourinary: No dysuria or hematuria. All other 14 point ROS negative except the above Past Medical History Past Medical History: Hyperlipidemia, Hypertension, Myocardial Infarction (CT) Additional Past Medical History / Comment(s): CT Last Myocardial Infarction Date:: 2015 History of Any Multi-Drug Resistant Organisms: None Reported Past Surgical History: Heart Catheterization With Stent, Tonsillectomy Additional Past Surgical History / Comment(s): coronary stents x4 Date of Last Stent Placement:: 2021 Past Psychological History: No Psychological Hx Reported Smoking Status: Never smoker Past Alcohol Use History: None Reported Past Drug Use History: None Reported Medications and Allergies Home Medications Medication Instructions Recorded Confirmed Type Clopidogrel [Plavix] 75 mg PO DAILY 01/05/14 02/27/24 History Bempedoic Acid/Ezetimibe [Nexlizet 1 tab PO DAILY 08/10/23 02/27/24 History 180-10 mg Tablet] icosapent ethyL [Icosapent Ethyl] 2 gm PO BID 08/10/23 02/27/24 History Enalapril [Vasotec] 5 mg PO DAILY 02/27/24 02/27/24 History Melatonin 10 mg PO HS PRN 02/27/24 02/27/24 History Rosuvastatin Calcium [Crestor] 5 mg PO DAILY 02/27/24 02/27/24 History Allergies Allergy/AdvReac Type Severity Reaction Status Date / Time influenza virus vaccine, Allergy Unknown Verified 02/27/24 12:36 specific pneumococcal vaccine Allergy Unknown Verified 02/27/24 12:36 Oxegppo-LVP-EfA Reductase AdvReac muscle Verified 02/27/24 12:36 Inhibitor aches/ body aches Physical Exam Vitals: Vital Signs Temp Pulse Resp BP Pulse Ox 02/27/24 12:30 97.9 F 81 16 99/58 02/27/24 12:10 97.7 F 75 16 105/63 99 02/27/24 12:00 97.7 F 75 16 94/69 100 02/27/24 11:17 108/67 02/27/24 11:13 98.4 F 80 22 84/57 97 02/27/24 10:00 77 18 109/73 98 02/27/24 09:00 72 18 107/71 99 02/27/24 07:00 73 18 108/68 99 02/27/24 06:10 70 20 108/68 100 02/27/24 05:40 60 15 116/74 100 02/27/24 05:30 65 20 129/80 100 02/27/24 05:15 62 18 118/78 100 02/27/24 05:06 64 16 95/82 100 02/27/24 04:52 97.6 F 64 19 93/78 97 Intake and Output 02/26/24 02/27/24 02/27/24 22:59 06:59 14:59 Intake Total 0 Balance 0 Intake: Blood Product 0 Rc Pheresis 2 As3 Unit 0 [id number] Other: Weight 77.111 kg PHYSICAL EXAMINATION: Patient is lying in the bed comfortably, no acute distress, awake alert and oriented.. HEENT: Normocephalic. Neck is supple. Pupils reactive. Nostrils clear. Oral cavity is moist. Neck reveals no JVD, carotid bruits, or thyromegaly. CHEST EXAMINATION: Trachea is central. Symmetrical expansion. Lung mcnulty clear to auscultation and percussion. CARDIAC: Normal S1, S2 with no gallops. No murmurs ABDOMEN: Soft. Bowel sounds normal. No organomegaly. No abdominal bruits. Extremities: reveal no edema. No clubbing or cyanosis Neurologically awake, alert, oriented x3 with well-coordinated movements. No focal deficits noted Skin: No rash or skin lesions. Psychiatric: Coperative. Nonsuicidal Musculoskeletal: No joint swelling or deformity. Normal range of motion. Results CBC & Chem 7: 02/27/24 20:30 02/27/24 11:39 Labs: Abnormal Lab Results - Last 24 Hours (Table) 02/27/24 02/27/24 02/27/24 Range/Units 04:55 05:02 05:02 RBC 3.99 L (4.30-5.90) m/uL Hgb (13.0-17.5) gm/dL Hct 38.3 L (39.0-53.0) % INR 1.2 H (<1.2) APTT 21.6 L (22.0-30.0) sec Sodium 136 L (137-145) mmol/L Chloride 108 H (98-107) mmol/L Carbon Dioxide 21 L (22-30) mmol/L BUN 24 H (9-20) mg/dL Creatinine 1.30 H (0.66-1.25) mg/dL Glucose 125 H (74-99) mg/dL Calcium (8.4-10.2) mg/dL AST (17-59) U/L Alkaline Phosphatase (38-126) U/L Total Protein 5.2 L (6.3-8.2) g/dL Albumin 3.4 L (3.5-5.0) g/dL Crossmatch 02/27/24 02/27/24 02/27/24 Range/Units 05:15 08:26 11:39 RBC 4.03 L (4.30-5.90) m/uL Hgb 12.7 L (13.0-17.5) gm/dL Hct 38.7 L (39.0-53.0) % INR (<1.2) APTT (22.0-30.0) sec Sodium (137-145) mmol/L Chloride 113 H (98-107) mmol/L Carbon Dioxide 20 L (22-30) mmol/L BUN 21 H (9-20) mg/dL Creatinine (0.66-1.25) mg/dL Glucose 110 H (74-99) mg/dL Calcium 8.2 L (8.4-10.2) mg/dL AST 15 L (17-59) U/L Alkaline Phosphatase 37 L (38-126) U/L Total Protein 4.7 L (6.3-8.2) g/dL Albumin 2.9 L (3.5-5.0) g/dL Crossmatch See Detail Thrombosis Risk Factor Assmnt - DVT/VTE Prophylaxis DVT/VTE Prophylaxis: Mechanical Prophylaxis ordered Assessment and Plan Assessment: Acute GI bleed mainly lower GI Acute blood loss anemia secondary to above Acute kidney injury likely prerenal Coronary artery disease with history of stent placement History of CT Hypertension Hyperlipidemia DVT prophylaxis with SCDs and GI prophylaxis with PPI Plan: Continue with IV hydration and monitor H&H every 4 hourly and transfuse PRBC if hemoglobin less than 7. Patient will be kept n.p.o. and continue with PPI 40 mg IV twice daily Aspirin Plavix on hold. GI is on board. Planning for emergent colonoscopy today. Prognosis guarded. Continue to follow closely. Time with Patient: Greater than 30
[2024-02-28 03:02] LABS: HCT 25.9 % (39.0-53.0); HGB 8.7 gm/dL (13.0-17.5); MCH 32.2 pg (25.0-35.0); MCHC 33.6 g/dL (31.0-37.0); MCV 95.7 fL (80.0-100.0); Mean Platelet Volume 8.7; Platelet Count 122 k/uL (150-450); RDW 12.7 % (11.5-15.5); WBC 5.3 k/uL (3.8-10.6)
[2024-02-28 06:42] LABS: Basophils % (A) 1 %; Eosinophils # (A) 0.2 k/uL (0-0.7); Eosinophils % (A) 4 %; HCT 25.7 % (39.0-53.0); HGB 8.6 gm/dL (13.0-17.5); Lymphocytes # (A) 1.1 k/uL (1.0-4.8); Lymphocytes % (A) 25 %; MCH 32.2 pg (25.0-35.0); MCHC 33.5 g/dL (31.0-37.0); Mean Platelet Volume 8.6; Monocytes # (A) 0.3 k/uL (0-1.0); Monocytes % (A) 6 %; Neutrophils # (A) 2.8 k/uL (1.3-7.7); Neutrophils % (A) 63 %; Platelet Count 131 k/uL (150-450); RBC 2.67 m/uL (4.30-5.90); RDW 12.8 % (11.5-15.5); WBC 4.5 k/uL (3.8-10.6)
[2024-02-28 06:47] LABS: ALT 9 U/L (4-49); AST 13 U/L (17-59); African American GFR (CKD) >90 (>60 ml/min/1.73 sqM); Albumin 2.3 g/dL (3.5-5.0); Alkaline Phosphatase 27 U/L (38-126); Anion Gap 1 mmol/L; Blood Urea Nitrogen 11 mg/dL (9-20); Calcium 7.7 mg/dL (8.4-10.2); Carbon Dioxide 21 mmol/L (22-30); Chloride 113 mmol/L (98-107); Glucose 83 mg/dL (74-99); Non-African American GFR(CKD) >90 (>60 ml/min/1.73 sqM); Potassium 3.6 mmol/L (3.5-5.1); Sodium 135 mmol/L (137-145); Total Bilirubin 0.8 mg/dL (0.2-1.3); Total Protein 3.8 g/dL (6.3-8.2)
[2024-02-28] MEDS ORDERED: Potassium Replacement Protocol 1 EACH MISC MISCELLANE PRN (06:57)
[2024-02-28] MEDS: POTASSIUM CHLORIDE ER 20 MEQ TAB.ER PO SCH (07:08)
--- NOTE | 2024-02-28 10:17 | P.PN ---
Subjective Progress Note Date: 02/28/24 Principal diagnosis: Rectal bleeding This is a pleasant 63-year-old male who presented around 5 AM to the emergency department with complaints rectal bleeding since around midnight. He states he has had multiple episodes of rectal bleeding reports that as bright red blood, not associated with any abdominal pain, nausea or vomiting. He had a CT of the abdomen pelvis with contrast with no acute findings. Denies any previous history of GI bleed. He did undergo recent EGD and colonoscopy last week Tuesday at [facility] with 1 cm cecal polyp status post polypectomy and EGD with findings of mild gastritis.. That was done for concerns for weight loss. He states he is unsure what the findings were. He does have a history of hyperlipidemia, hypertension, myocardial infarction, and coronary artery disease status post stents and is on Plavix aspirin and Brilinta according to his chart. Patient states he does know that he is on an antiplatelet although he is unsure which one. Hemoglobin on admission was 13.2 with a drop to 12.7. Nursing reports he has had about 5 large bowel movements that are bright red to dark red since coming into the emergency department. Patient has been hypotensive, INR 1.2. 1 unit of blood has been ordered. He currently denies any abdominal pain or vomiting. States that he does get a little nauseous when his blood pressure drops. Currently getting IV hydration. With plans for being admitted to the intensive care unit. 02/28/2024 Patient seen and examined today as a follow-up. He is currently in the ICU. Yesterday he underwent colonoscopy with findings of post polypectomy cecal ulcer with active bleeding status post Endo Clip placement with good hemostasis, scattered diverticulosis with rest of colon appearing normal. He states that he is feeling much better today. He is sitting up in bed. He is tolerating a clear liquid diet. He has not had any further rectal bleeding. Denies any abdominal pain, nausea or vomiting. He is status post 2 units of blood with repeat hemoglobin today of 8.6 platelet count 131,000 Objective - Vital Signs Vital signs: Vital Signs Temp 98.7 F 02/28/24 04:00 Pulse 77 02/28/24 07:00 Resp 18 02/28/24 07:00 BP 111/68 02/28/24 07:00 Pulse Ox 96 02/28/24 08:03 FiO2 Intake & Output 02/27/24 02/28/24 02/28/24 18:59 06:59 18:59 Intake Total 1368 4060 380 Output Total 350 0 Balance 1368 3710 380 Weight 77.111 kg Intake: IV 800 1430 130 Sodium Chloride 0.9% 1, 1430 130 000 ml @ 130 mls/hr IV . Q7H42M [facility] Rx#:[id number] Intake, IV Titration 130 Amount Lactated Ringers 1,000 ml 130 @ 0 mls/hr IV .[facility] Rx#:[id number] Oral 2500 250 Blood Product 568 Rc Pheresis 2 As3 Unit 288 [id number] Rc Pheresis 2 As3 Unit 280 [id number] Output: Urine 350 0 Other: Voiding Method Urinal Urinal # Voids 1 - Exam General appearance: The patient is alert, oriented, appears in no acute distress. HET: Head is normocephalic and atraumatic. Conjunctiva pink. Sclera anicteric. Neck: Supple without lymphadenopathy. Abdomen: Soft, nontender, nondistended with bowel sounds. No guarding or rigidity. Extremities: Normal skin color and turgor. No pedal edema Skin: No rashes, no jaundice Neurological: No focal deficits. Alert and oriented. - Labs CBC & Chem 7: 02/28/24 05:43 02/28/24 05:43 Labs: Abnormal Lab Results - Last 24 Hours (Table) 02/27/24 02/27/24 02/27/24 Range/Units 05:15 08:26 11:39 RBC 4.03 L (4.30-5.90) m/uL Hgb 12.7 L (13.0-17.5) gm/dL Hct 38.7 L (39.0-53.0) % Plt Count (150-450) k/uL Sodium (137-145) mmol/L Chloride 113 H (98-107) mmol/L Carbon Dioxide 20 L (22-30) mmol/L BUN 21 H (9-20) mg/dL Glucose 110 H (74-99) mg/dL POC Glucose (mg/dL) (70-110) mg/dL Calcium 8.2 L (8.4-10.2) mg/dL AST 15 L (17-59) U/L Alkaline Phosphatase 37 L (38-126) U/L Total Protein 4.7 L (6.3-8.2) g/dL Albumin 2.9 L (3.5-5.0) g/dL Crossmatch See Detail 02/27/24 02/27/24 02/27/24 Range/Units 11:39 15:57 17:32 RBC 3.61 L 3.56 L 3.46 L (4.30-5.90) m/uL Hgb 11.7 L 11.3 L 10.7 L (13.0-17.5) gm/dL Hct 35.4 L 34.2 L 33.1 L (39.0-53.0) % Plt Count (150-450) k/uL Sodium (137-145) mmol/L Chloride (98-107) mmol/L Carbon Dioxide (22-30) mmol/L BUN (9-20) mg/dL Glucose (74-99) mg/dL POC Glucose (mg/dL) (70-110) mg/dL Calcium (8.4-10.2) mg/dL AST (17-59) U/L Alkaline Phosphatase (38-126) U/L Total Protein (6.3-8.2) g/dL Albumin (3.5-5.0) g/dL Crossmatch 02/27/24 02/27/24 02/28/24 Range/Units 18:48 20:30 02:03 RBC 2.92 L 2.70 L (4.30-5.90) m/uL Hgb 9.3 L 8.7 L (13.0-17.5) gm/dL Hct 28.2 L 25.9 L (39.0-53.0) % Plt Count 143 L 122 L (150-450) k/uL Sodium (137-145) mmol/L Chloride (98-107) mmol/L Carbon Dioxide (22-30) mmol/L BUN (9-20) mg/dL Glucose (74-99) mg/dL POC Glucose (mg/dL) 139 H (70-110) mg/dL Calcium (8.4-10.2) mg/dL AST (17-59) U/L Alkaline Phosphatase (38-126) U/L Total Protein (6.3-8.2) g/dL Albumin (3.5-5.0) g/dL Crossmatch 02/28/24 02/28/24 Range/Units 05:43 05:43 RBC 2.67 L (4.30-5.90) m/uL Hgb 8.6 L (13.0-17.5) gm/dL Hct 25.7 L (39.0-53.0) % Plt Count 131 L (150-450) k/uL Sodium 135 L (137-145) mmol/L Chloride 113 H (98-107) mmol/L Carbon Dioxide 21 L (22-30) mmol/L BUN (9-20) mg/dL Glucose (74-99) mg/dL POC Glucose (mg/dL) (70-110) mg/dL Calcium 7.7 L (8.4-10.2) mg/dL AST 13 L (17-59) U/L Alkaline Phosphatase 27 L (38-126) U/L Total Protein 3.8 L (6.3-8.2) g/dL Albumin 2.3 L (3.5-5.0) g/dL Crossmatch Assessment and Plan (1) Hematochezia Narrative/Plan: 63-year-old male presenting with multiple episodes of bright red blood per rectum with symptomatic anemia. Patient had EGD and colonoscopy about a week ago with cecal polyp removal which is likely source of lower GI bleed. Continue to treat symptomatically, transfuse as needed for hemoglobin less than 7. Hold antiplatelets. If bleeding does not stop, will need to procedd with colonoscop y. Current Visit: Yes Status: Acute Code(s): K92.1 - MELENA SNOMED Code(s): 890503271 (2) Post-polypectomy bleeding Narrative/Plan: Patient underwent colonoscopy with finding of post polypectomy cecal ulcer with active bleeding status post Endo Clip placement with good hemostasis. No further active bleeding. Current Visit: Yes Status: Acute Code(s): BQO0328 - SNOMED Code(s): 798955300 (3) Coronary artery disease Current Visit: Yes Status: Acute Code(s): I25.10 - ATHSCL HEART DISEASE OF [place] CORONARY ARTERY W/O ANG PCTRS SNOMED Code(s): 41337741 (4) Cecal polyp Current Visit: Yes Status: Acute Code(s): K63.5 - POLYP OF COLON SNOMED Code(s): 173920167 Plan: 1. Continue symptomatic and supportive care 2. Advance to regular diet 3. May resume antiplatelet therapy tomorrow 4. If patient has no further bleeding and is able to tolerate regular diet May be considered for discharge later today Thank you for this consultation, we will continue to follow. Dr. Zoraida Cabrera I agree with the dictator's note, documented as a scribe by Palma Earl.
[2024-02-28 11:39] VITALS: BMI 23.0
--- NOTE | 2024-02-28 12:45 | P.PN ---
Subjective Progress Note Date: 02/28/24 Principal diagnosis: Acute lower GI bleeding This is a 63-year-old male patient with a known history of hypertension, hyperlipidemia, coronary artery disease with previous stent placement maintained on Plavix. He had been having issues with unexplained weight loss and 1 week a go he had undergone an upper and lower endoscopy at [facility]. He did have a polypectomy at that time. He presented here to the emergency room early this morning after developing dizziness, lightheadedness and rectal bleeding with bright red blood that started at approximately midnight. He presented here at [address] scan of the abdomen and pelvis revealed no gross evidence of intraluminal hemorrhage. No other acute findings noted. Chest x- ray revealed no acute pulmonary process. Initial hemoglobin 13.2. He did drop to 11.3. White count 5.6. Platelets 191. Sodium 138. Potassium 4.5. Bicarb 20. BUN 21. Creatinine 0.93. Glucose 110. He received 1 unit of packed red blood cells thus far. He was seen in consultation in the emergency department. He is having complaints of dizziness and lightheadedness. He is hypotensive. Afebrile. Maintaining good O2 saturation in the upper 90s on room air. He did undergo colonoscopy this afternoon and was found to have post polypectomy cecal ulcer with active bleeding, status post Endo Clip placement with good hemosta sis. Evidence of scattered diverticulosis otherwise normal colon. He will be placed in the intensive care unit for closer observation. Patient with evaluated today on 02/28/2024, remains in the ICU, patient presented initially with acute lower GI bleeding, required 2 units of packed RBCs since admission,Hemoglobin today is 8.6, patient has no further episodes of GI bleeding, his stool has cleared according to the patient, no black tarry stools or bright red blood per rectum, patient underwent colonoscopy yesterday and underwent Endo Clip placement at the site of bleeding from previous polypectomy. Patient is hemodynamically stable, not requiring any pressors, he does not seem to be in any distress, hence I will transfer the patient out of the ICU to regular medical floor today Objective - Vital Signs Vital signs: Vital Signs Temp 98.6 F 02/28/24 12:00 Pulse 65 02/28/24 12:00 Resp 20 02/28/24 12:00 BP 124/74 02/28/24 12:00 Pulse Ox 97 02/28/24 12:00 FiO2 Intake & Output 02/27/24 02/28/24 02/28/24 18:59 06:59 18:59 Intake Total 1368 4060 1240 Output Total 350 400 Balance 1368 3710 840 Weight 77.111 kg 77.111 kg Intake: IV 800 1430 390 Sodium Chloride 0.9% 1, 1430 390 000 ml @ 130 mls/hr IV . Q7H42M [facility] Rx#:[id number] Intake, IV Titration 130 Amount Lactated Ringers 1,000 ml 130 @ 0 mls/hr IV .[facility] Rx#:[id number] Oral 2500 850 Blood Product 568 Rc Pheresis 2 As3 Unit 288 [id number] Rc Pheresis 2 As3 Unit 280 [id number] Output: Urine 350 400 Other: Voiding Method Urinal Urinal Urinal # Voids 1 1 # Bowel Movements 1 - Exam GENERAL EXAM: Reveals 63-year-old white male in no distress HEAD: Normocephalic. EYES: Normal reaction of pupils, equal size. NOSE: Clear with pink turbinates. THROAT: No erythema or exudates. NECK: No masses, no JVD. CHEST: No chest wall deformity. LUNGS: Clear throughout no crackles rhonchi or wheezes CVS: S1 and S2 normal with no audible murmur, regular rhythm. ABDOMEN: Soft nontender no megaly no rebound no guarding SKIN: No rashes CENTRAL NERVOUS SYSTEM: Alert oriented x 3 no gross focal neurologic deficit EXTREMITIES: No clubbing edema or cyanosis - Labs CBC & Chem 7: 02/28/24 05:43 02/28/24 05:43 Labs: Abnormal Lab Results - Last 24 Hours (Table) 02/27/24 02/27/24 02/27/24 Range/Units 05:15 11:39 15:57 RBC 3.61 L 3.56 L (4.30-5.90) m/uL Hgb 11.7 L 11.3 L (13.0-17.5) gm/dL Hct 35.4 L 34.2 L (39.0-53.0) % Plt Count (150-450) k/uL Sodium (137-145) mmol/L Chloride (98-107) mmol/L Carbon Dioxide (22-30) mmol/L POC Glucose (mg/dL) (70-110) mg/dL Calcium (8.4-10.2) mg/dL AST (17-59) U/L Alkaline Phosphatase (38-126) U/L Total Protein (6.3-8.2) g/dL Albumin (3.5-5.0) g/dL Crossmatch See Detail 02/27/24 02/27/24 02/27/24 Range/Units 17:32 18:48 20:30 RBC 3.46 L 2.92 L (4.30-5.90) m/uL Hgb 10.7 L 9.3 L (13.0-17.5) gm/dL Hct 33.1 L 28.2 L (39.0-53.0) % Plt Count 143 L (150-450) k/uL Sodium (137-145) mmol/L Chloride (98-107) mmol/L Carbon Dioxide (22-30) mmol/L POC Glucose (mg/dL) 139 H (70-110) mg/dL Calcium (8.4-10.2) mg/dL AST (17-59) U/L Alkaline Phosphatase (38-126) U/L Total Protein (6.3-8.2) g/dL Albumin (3.5-5.0) g/dL Crossmatch 02/28/24 02/28/24 02/28/24 Range/Units 02:03 05:43 05:43 RBC 2.70 L 2.67 L (4.30-5.90) m/uL Hgb 8.7 L 8.6 L (13.0-17.5) gm/dL Hct 25.9 L 25.7 L (39.0-53.0) % Plt Count 122 L 131 L (150-450) k/uL Sodium 135 L (137-145) mmol/L Chloride 113 H (98-107) mmol/L Carbon Dioxide 21 L (22-30) mmol/L POC Glucose (mg/dL) (70-110) mg/dL Calcium 7.7 L (8.4-10.2) mg/dL AST 13 L (17-59) U/L Alkaline Phosphatase 27 L (38-126) U/L Total Protein 3.8 L (6.3-8.2) g/dL Albumin 2.3 L (3.5-5.0) g/dL Crossmatch Assessment and Plan Assessment: Impression:Acute gastrointestinal bleeding secondary to post polypectomy cecal ulcer with active bleeding, status post colonoscopy and Endo Clip placement with good hemostasis. Post procedure day #1 Hypotension secondary to above required 2 units of packed RBCs, resolved. Recent colonoscopy with polypectomy 1 week ago at [facility] History of unexplained weight loss leading to the EGD colonoscopy last week History of coronary artery disease status previous stent placements x 4 and maintained on Plavix History of hypertension Hyperlipidemia Recommendation: Continue present supportive care measures Transfer patient out of the ICU to a medical floor for the next 24 hours and if he remains stable consider discharge planning in 24 hours Resume home meds Gastroenterology to clear whether the patient could go back on his Plavix. Will continue to follow Time with Patient: Less than 30
--- NOTE | 2024-02-28 15:17 | P.PN ---
Subjective Progress Note Date: 02/28/24 Patient is a 63-year-old male with a past medical history of hypertension, hyperlipidemia, history of RI, coronary disease s/p stent placement presents to ER with complaints of rectal bleeding. Patient states that he started having multiple episodes of bright red blood per rectum started on midnight yesterday. Denies any complaints of abdominal pain or nausea or vomiting. Patient underwent EGD and colonoscopy last week due to concern for weight loss at [facility] found to have 1 cm cecal polyp status post polypectomy and EGD showed findings of mild gastritis. CT of the abdomen pelvis was done in the ER showed no gross evidence of intraluminal hemorrhage identified. If there is further concern for GI hemorrhage consider multiphasic imaging with noncontrast scintigraphic imaging. No other acute findings. Chest x-ray showed no acute findings in the chest. EKG showed supraventricular rhythm. Heart rate 64 Laboratory data showed WBC 5.6 hemoglobin 13.2 and dropped down to 11.7 this afternoon, sodium 136 potassium 4.4 chloride 108 bicarb is 21 BUN 24 and creatinine 1.3 and blood sugar 125 liver enzymes are not elevated albumin 3.4 troponin x 1 negative. Patient had another episode of large bowel movement with bright red blood while in the ER. Patient was taken to emergent colonoscopy followed by admission to ICU. 02/28/2024 Patient seen and evaluated in follow-up status post colonoscopy with GI Dr. Cabrera revealing post polypectomy cecal ulcer with active bleeding and is status post Endo Clip placement with good hemostasis with also noted diverticulosis. Patient currently in the ICU although being transferred out of the ICU once a bed is available. Patient is medically stable and has been started on diet and tolerating although patient reports has no appetite and no real desire to eat. Hemoglobin is 8.6 with no active bleeding noted. Patient reports he has been having bowel movements and they are clear. Review of systems: Constitutional: No reports of fatigue, fever, or chills Cardiovascular: No reports of chest pain or palpitations Respiratory: No reports of shortness of breath or cough GI: No reports of nausea, vomiting, or diarrhea : No reports of dysuria or retention Neurovascular: No reports of weakness or numbness All medications have been reviewed PHYSICAL EXAMINATION: Patient is sitting up in the chair comfortably, no acute distress, awake alert and oriented.. HEENT: Normocephalic. Neck is supple. Pupils reactive. Nostrils clear. Oral cavity is moist. Neck reveals no JVD, carotid bruits, or thyromegaly. CHEST EXAMINATION: Trachea is central. Symmetrical expansion. Lung mcnulty clear to auscultation and percussion. CARDIAC: Normal S1, S2 with no gallops. No murmurs ABDOMEN: Soft. Bowel sounds normal. No organomegaly. No abdominal bruits. Extremities: reveal no edema. No clubbing or cyanosis Neurologically awake, alert, oriented x3 with well-coordinated movements. No focal deficits noted Skin: No rash or skin lesions. Psychiatric: Cooperative. Non-suicidal Musculoskeletal: No joint swelling or deformity. Normal range of motion. Assessment: Acute GI bleed mainly lower GI with acute blood loss anemia, secondary to polypectomy cecal ulcer with active bleeding and is status post Endo Clip placement with no further bleeding noted Acute blood loss anemia secondary to above Acute kidney injury likely prerenal, improved Coronary artery disease with history of stent placement History of RI Hypertension Hyperlipidemia DVT prophylaxis with SCDs GI prophylaxis with PPI Full code Plan: Continue with IV hydration and monitor H&H every 4 hourly and transfuse if less than 7. Hemoglobin is currently 8.6 continue on IV Protonix and has been started on clear liquids and tolerating thus far. Slowly advance per GI recommendations Aspirin Plavix on hold. GI following recommend monitoring overnight for any further bleeding with possible discharge planning in the next 24 hours Patient is medically stable for transfer out of the ICU. Will follow-up with repeat CBC in the evening as well as a.m. The impression and plan of care has been dictated by Marybel Burrell, Nurse Practitioner as directed. Dr. Frankie MD I have performed a history and examination and MDM of this patient, discussed th e same with the dictator, and agree with the dictator's assessment and plan as written ,documented as a scribe. Based on total visit time, I have performed more than 50% of the visit. Objective - Vital Signs Vital signs: Vital Signs Temp 98.7 F 02/28/24 04:00 Pulse 77 02/28/24 07:00 Resp 18 02/28/24 07:00 BP 111/68 02/28/24 07:00 Pulse Ox 96 02/28/24 08:03 FiO2 Intake & Output 07/08/24 07/09/24 07/09/24 18:59 06:59 18:59 Intake Total 1368 4060 380 Output Total 350 0 Balance 1368 3710 380 Weight 77.111 kg Intake: IV 800 1430 130 Sodium Chloride 0.9% 1, 1430 130 000 ml @ 130 mls/hr IV . Q7H42M [facility] Rx#:[id number] Intake, IV Titration 130 Amount Lactated Ringers 1,000 ml 130 @ 0 mls/hr IV .[facility] Rx#:[id number] Oral 2500 250 Blood Product 568 Rc Pheresis 2 As3 Unit 288 [id number] Rc Pheresis 2 As3 Unit 280 [id number] Output: Urine 350 0 Other: Voiding Method Urinal Urinal # Voids 1 - Labs CBC & Chem 7: 02/28/24 05:43 02/28/24 05:43 Labs: Abnormal Lab Results - Last 24 Hours (Table) 02/27/24 02/27/24 02/27/24 Range/Units 05:15 11:39 11:39 RBC 3.61 L (4.30-5.90) m/uL Hgb 11.7 L (13.0-17.5) gm/dL Hct 35.4 L (39.0-53.0) % Plt Count (150-450) k/uL Sodium (137-145) mmol/L Chloride 113 H (98-107) mmol/L Carbon Dioxide 20 L (22-30) mmol/L BUN 21 H (9-20) mg/dL Glucose 110 H (74-99) mg/dL POC Glucose (mg/dL) (70-110) mg/dL Calcium 8.2 L (8.4-10.2) mg/dL AST 15 L (17-59) U/L Alkaline Phosphatase 37 L (38-126) U/L Total Protein 4.7 L (6.3-8.2) g/dL Albumin 2.9 L (3.5-5.0) g/dL Crossmatch See Detail 02/27/24 02/27/24 02/27/24 Range/Units 15:57 17:32 18:48 RBC 3.56 L 3.46 L (4.30-5.90) m/uL Hgb 11.3 L 10.7 L (13.0-17.5) gm/dL Hct 34.2 L 33.1 L (39.0-53.0) % Plt Count (150-450) k/uL Sodium (137-145) mmol/L Chloride (98-107) mmol/L Carbon Dioxide (22-30) mmol/L BUN (9-20) mg/dL Glucose (74-99) mg/dL POC Glucose (mg/dL) 139 H (70-110) mg/dL Calcium (8.4-10.2) mg/dL AST (17-59) U/L Alkaline Phosphatase (38-126) U/L Total Protein (6.3-8.2) g/dL Albumin (3.5-5.0) g/dL Crossmatch 02/27/24 02/28/24 02/28/24 Range/Units 20:30 02:03 05:43 RBC 2.92 L 2.70 L 2.67 L (4.30-5.90) m/uL Hgb 9.3 L 8.7 L 8.6 L (13.0-17.5) gm/dL Hct 28.2 L 25.9 L 25.7 L (39.0-53.0) % Plt Count 143 L 122 L 131 L (150-450) k/uL Sodium (137-145) mmol/L Chloride (98-107) mmol/L Carbon Dioxide (22-30) mmol/L BUN (9-20) mg/dL Glucose (74-99) mg/dL POC Glucose (mg/dL) (70-110) mg/dL Calcium (8.4-10.2) mg/dL AST (17-59) U/L Alkaline Phosphatase (38-126) U/L Total Protein (6.3-8.2) g/dL Albumin (3.5-5.0) g/dL Crossmatch 02/28/24 Range/Units 05:43 RBC (4.30-5.90) m/uL Hgb (13.0-17.5) gm/dL Hct (39.0-53.0) % Plt Count (150-450) k/uL Sodium 135 L (137-145) mmol/L Chloride 113 H (98-107) mmol/L Carbon Dioxide 21 L (22-30) mmol/L BUN (9-20) mg/dL Glucose (74-99) mg/dL POC Glucose (mg/dL) (70-110) mg/dL Calcium 7.7 L (8.4-10.2) mg/dL AST 13 L (17-59) U/L Alkaline Phosphatase 27 L (38-126) U/L Total Protein 3.8 L (6.3-8.2) g/dL Albumin 2.3 L (3.5-5.0) g/dL Crossmatch
[2024-02-28 19:38] VITALS: RESP 16
[2024-02-28 19:57] LABS: Appearance,Urine Clear (Clear); Bilirubin,Urine Negative (Negative); Blood,Urine Negative (Negative); Color,Urine Colorless; Glucose,Urine (UA) Negative (Negative); Ketones,Urine Negative (Negative); Leukocyte Esterase,Urine Negative (Negative); Nitrite,Urine Negative (Negative); PH, Urine 6.5 (5.0-8.0); Protein,Urine Negative (Negative); Specific Gravity,Urine 1.002 (1.001-1.035); Urobilinogen,Urine <2.0 mg/dL (<2.0)
[2024-02-28 21:09] LABS: HCT 29.3 % (39.6-50.0); HGB 9.8 g/dL (13.0-17.0); MCH 31.7 pg (27.0-32.0); MCHC 33.4 g/dL (32.0-37.0); MCV 94.8 FL (80.0-97.0); Mean Platelet Volume 11.1 FL (9.5-12.2); NRBC Per 100 WBC 0 X 10*3/uL (0.00-0.01); Platelet Count 177 X 10*3/uL (140-440); RBC 3.09 X 10*6/uL (4.40-5.60); RDW 12.4 % (11.5-14.5); WBC 6.76 X 10*3/uL (4.50-10.00)
[2024-02-29 08:51] LABS: HCT 26.1 % (39.0-53.0); HGB 8.8 gm/dL (13.0-17.5); MCHC 33.5 g/dL (31.0-37.0); MCV 95.4 fL (80.0-100.0); Mean Platelet Volume 8.4; Platelet Count 150 k/uL (150-450); RBC 2.74 m/uL (4.30-5.90); RDW 12.5 % (11.5-15.5)
[2024-02-29 11:14] LABS: African American GFR (CKD) >90 (>60 ml/min/1.73 sqM); Anion Gap 1 mmol/L; Blood Urea Nitrogen 6 mg/dL (9-20); Calcium 8.5 mg/dL (8.4-10.2); Carbon Dioxide 28 mmol/L (22-30); Chloride 107 mmol/L (98-107); Glucose 94 mg/dL (74-99); Non-African American GFR(CKD) 84 (>60 ml/min/1.73 sqM); Potassium 3.9 mmol/L (3.5-5.1); Sodium 136 mmol/L (137-145)
--- NOTE | 2024-02-29 12:31 | P.PN ---
Subjective Progress Note Date: 02/29/24 Principal diagnosis: Rectal bleeding This is a pleasant 63-year-old male who presented around 5 AM to the emergency department with complaints rectal bleeding since around midnight. He states he has had multiple episodes of rectal bleeding reports that as bright red blood, not associated with any abdominal pain, nausea or vomiting. He had a CT of the abdomen pelvis with contrast with no acute findings. Denies any previous history of GI bleed. He did undergo recent EGD and colonoscopy last week Tuesday at [facility] with 1 cm cecal polyp status post polypectomy and EGD with findings of mild gastritis.. That was done for concerns for weight loss. He states he is unsure what the findings were. He does have a history of hyperlipidemia, hypertension, myocardial infarction, and coronary artery disease status post stents and is on Plavix aspirin and Brilinta according to his chart. Patient states he does know that he is on an antiplatelet although he is unsure which one. Hemoglobin on admission was 13.2 with a drop to 12.7. Nursing reports he has had about 5 large bowel movements that are bright red to dark red since coming into the emergency department. Patient has been hypotensive, INR 1.2. 1 unit of blood has been ordered. He currently denies any abdominal pain or vomiting. States that he does get a little nauseous when his blood pressure drops. Currently getting IV hydration. With plans for being admitted to the intensive care unit. 02/28/2024 Patient seen and examined today as a follow-up. He is currently in the ICU. Yesterday he underwent colonoscopy with findings of post polypectomy cecal ulcer with active bleeding status post Endo Clip placement with good hemostasis, scattered diverticulosis with rest of colon appearing normal. He states that he is feeling much better today. He is sitting up in bed. He is tolerating a clear liquid diet. He has not had any further rectal bleeding. Denies any abdominal pain, nausea or vomiting. He is status post 2 units of blood with repeat hemoglobin today of 8.6 platelet count 131,000 02/29/2024 Patient seen and examined today as a follow-up. Today he is sitting up and e ating his breakfast. He states he is feeling very well. He is not having any dizziness shortness of breath, no chest pain. States he had another bowel movement with no blood in it. No abdominal pain, nausea or vomiting. Hemoglobin 8.8 this morning platelets 150,000. Objective - Vital Signs Vital signs: Vital Signs Temp 97.9 F 02/29/24 07:08 Pulse 58 L 02/29/24 07:08 Resp 16 02/29/24 07:08 BP 119/69 02/29/24 07:08 Pulse Ox 98 02/29/24 07:08 FiO2 Intake & Output 02/28/24 02/29/24 02/29/24 18:59 06:59 18:59 Intake Total 1240 Output Total 400 Balance 840 Weight 77.111 kg Intake: IV 390 Sodium Chloride 0.9% 1, 390 000 ml @ 130 mls/hr IV . Q7H42M [facility] Rx#:[id number] Oral 850 Output: Urine 400 Other: Voiding Method Urinal Toilet Urinal # Voids 1 3 # Bowel Movements 1 - Exam General appearance: The patient is alert, oriented, appears in no acute distress. HET: Head is normocephalic and atraumatic. Conjunctiva pink. Sclera anicteric. Neck: Supple without lymphadenopathy. Abdomen: Soft, nontender, nondistended with bowel sounds. No guarding or rigidity. Extremities: Normal skin color and turgor. No pedal edema Skin: No rashes, no jaundice Neurological: No focal deficits. Alert and oriented. - Labs CBC & Chem 7: 02/29/24 08:47 02/29/24 08:47 Labs: Abnormal Lab Results - Last 24 Hours (Table) 02/28/24 Range/Units 15:33 RBC 3.09 L (4.40-5.60) X 10*6/uL Hgb 9.8 L (13.0-17.0) g/dL Hct 29.3 L (39.6-50.0) % Assessment and Plan (1) Hematochezia Narrative/Plan: 63-year-old male presenting with multiple episodes of bright red blood per rectum with symptomatic anemia. Patient had EGD and colonoscopy about a week ago with cecal polyp removal which is likely source of lower GI bleed. Continue to treat symptomatically, transfuse as needed for hemoglobin less than 7. Hold antiplatelets. If bleeding does not stop, will need to procedd with colonoscopy. Current Visit: Yes Status: Acute Code(s): K92.1 - MELENA SNOMED Code(s): 066866399 (2) Post-polypectomy bleeding Narrative/Plan: Patient underwent colonoscopy with finding of post polypectomy cecal ulcer with active bleeding status post Endo Clip placement with good hemostasis. No further active bleeding. Current Visit: Yes Status: Acute Code(s): TJA5381 - SNOMED Code(s): 611586084 (3) Coronary artery disease Current Visit: Yes Status: Acute Code(s): I25.10 - ATHSCL HEART DISEASE OF [place] CORONARY ARTERY W/O ANG PCTRS SNOMED Code(s): 11307930 (4) Cecal polyp Current Visit: Yes Status: Acute Code(s): K63.5 - POLYP OF COLON SNOMED Code(s): 985509527 Plan: 1. Continue symptomatic and supportive care 2. Advance to regular diet 3. Patient will discuss Plavix with his hr specialist as he states that they were likely going to be stopping it. Continue to hold for now until further discussed with hr specialist. 4. Patient is cleared from gastroenterology for discharge. Follow-up in 1 to 2 weeks. Thank you for this consultation, we we will sign off at this time. Dr. Zoraida Cabrera I agree with the dictator's note, documented as a scribe by Palma Earl.
--- NOTE | 2024-02-29 12:40 | P.PN ---
Subjective Progress Note Date: 02/29/24 This is a 63-year-old male patient with a known history of hypertension, hyperlipidemia, coronary artery disease with previous stent placement maintained on Plavix. He had been having issues with unexplained weight loss and 1 week ago he had undergone an upper and lower endoscopy at [facility]. He did have a polypectomy at that time. He presented here to the emergency room early this morning after developing dizziness, lightheadedness and rectal bleeding with bright red blood that started at approximately midnight. He presented here at [address] scan of the abdomen and pelvis revealed no gross evidence of intraluminal hemorrhage. No other acute findings noted. Chest x- ray revealed no acute pulmonary process. Initial hemoglobin 13.2. He did drop to 11.3. White count 5.6. Platelets 191. Sodium 138. Potassium 4.5. Bicarb 20. BUN 21. Creatinine 0.93. Glucose 110. He received 1 unit of packed red blood cells thus far. He was seen in consultation in the emergency department. He is having complaints of dizziness and lightheadedness. He is hypotensive. Afebrile. Maintaining good O2 saturation in the upper 90s on room air. He did undergo colonoscopy this afternoon and was found to have post polypectomy cecal ulcer with active bleeding, status post Endo Clip placement with good hemostasis. Evidence of scattered diverticulosis otherwise normal colon. He wi ll be placed in the intensive care unit for closer observation. Patient with evaluated today on 02/28/2024, remains in the ICU, patient presented initially with acute lower GI bleeding, required 2 units of packed RBCs since admission,Hemoglobin today is 8.6, patient has no further episodes of GI blee ding, his stool has cleared according to the patient, no black tarry stools or bright red blood per rectum, patient underwent colonoscopy yesterday and underwent Endo Clip placement at the site of bleeding from previous polypectomy. Patient is hemodynamically stable, not requiring any pressors, he does not seem to be in any distress, hence I will transfer the patient out of the ICU to regular medical floor today The patient is seen today February 29, 2024 in follow-up on the regular medical floor. He is currently sitting up in bed. Awake and alert in no acute distress. Maintaining good O2 saturations in the 90s on room air. No further evidence of GI bleed. Hemoglobin 8.8. White count 3.0. Platelets 150. Sodium 136. Potassium 3.9. Bicarb 28. BUN 6. Creatinine 0.96. He remains on IV Protonix twice daily Objective - Vital Signs Vital signs: Vital Signs Temp 97.9 F 02/29/24 07:08 Pulse 58 L 02/29/24 08:40 Resp 16 02/29/24 08:40 BP 119/69 02/29/24 07:08 Pulse Ox 98 02/29/24 07:08 FiO2 Intake & Output 02/28/24 02/29/24 02/29/24 18:59 06:59 18:59 Intake Total 1240 Output Total 400 Balance 840 Weight 77.111 kg Intake: IV 390 Sodium Chloride 0.9% 1, 390 000 ml @ 130 mls/hr IV . Q7H42M [facility] Rx#:[id number] Oral 850 Output: Urine 400 Other: Voiding Method Urinal Toilet Toilet Urinal Urinal # Voids 1 3 # Bowel Movements 1 - Exam GENERAL EXAM: Alert, pleasant 63-year-old male, sitting up in bed, on room air, comfortable in no apparent distress. HEAD: Normocephalic. EYES: Normal reaction of pupils, equal size. NOSE: Clear with pink turbinates. THROAT: No erythema or exudates. NECK: No masses, no JVD. CHEST: No chest wall deformity. LUNGS: Equal air entry with no crackles, wheeze, rhonchi or dullness. CVS: S1 and S2 normal with no audible murmur, regular rhythm. ABDOMEN: No hepatosplenomegaly, normal bowel sounds, no guarding or rigidity. SPINE: No scoliosis or deformity SKIN: No rashes CENTRAL NERVOUS SYSTEM: No focal deficits, tone is normal in all 4 extremities. EXTREMITIES: There is no peripheral edema. No clubbing, no cyanosis. Perip heral pulses are intact. - Labs CBC & Chem 7: 02/29/24 08:47 02/29/24 08:47 Labs: Abnormal Lab Results - Last 24 Hours (Table) 02/28/24 02/29/24 02/29/24 Range/Units 15:33 08:47 08:47 WBC 3.0 L (3.8-10.6) k/uL RBC 3.09 L 2.74 L (4.40-5.60) X 10*6/uL Hgb 9.8 L 8.8 L (13.0-17.0) g/dL Hct 29.3 L 26.1 L (39.6-50.0) % Sodium 136 L (137-145) mmol/L BUN 6 L (9-20) mg/dL Assessment and Plan Assessment: Acute gastrointestinal bleeding secondary to post polypectomy cecal ulcer with active bleeding, status post colonoscopy and Endo Clip placement with good hemostasis Hypotension secondary to above requiring 2 unit of packed red blood cells and fluid resuscitation, recovered Recent colonoscopy with polypectomy 1 week ago at [facility] History of unexplained weight loss leading to the EGD colonoscopy last week History of coronary artery disease status previous stent placements x 4 and maintained on Plavix History of hypertension Hyperlipidemia Plan: The patient was seen and evaluated Labs and medications reviewed No evidence of further bleeding Cleared for discharge from the pulmonary standpoint Plavix to be resumed once cleared by GI service This patient was seen independently by the pulmonary nurse practitioner addressing pulmonary issues I have personally seen and examined the patient, performed the documentation and the assessment and plan as written. Number of minutes spent on the visit: 24.
[2024-02-29 12:56] VITALS: BP 127/72; PULSE 62; TEMP 98.3
== END 2024-02-29 14:33 | disposition home or self-care (01) | DRG 920 ==
LOC: EC 04:51 → 3SCARD 10:02 → 2SICU 12:10 → 5NMEDONC 02-28 14:55
PROVIDERS: ADMIT Hospitalist; ATTEND Hospitalist
PROC: 30233N1 Transfusion of Nonautologous Red Blood Cells into Peripheral Vein, Percutaneous Approach (ICD-10-PCS; 2024-02-27)
PROC: 0W3P8ZZ Control Bleeding in Gastrointestinal Tract, Via Natural or Artificial Opening Endoscopic (ICD-10-PCS; principal; 2024-02-27 08:10)
DX: K91.840 Postprocedural hemorrhage of a digestive system organ or structure following a digestive system procedure (principal); D62 Acute posthemorrhagic anemia; K63.3 Ulcer of intestine; E78.5 Hyperlipidemia, unspecified; I10 Essential (primary) hypertension; I25.10 Atherosclerotic heart disease of native coronary artery without angina pectoris; K57.30 Diverticulosis of large intestine without perforation or abscess without bleeding; Y83.8 Other surgical procedures as the cause of abnormal reaction of the patient, or of later complication, without mention of misadventure at the time of the procedure; I25.2 Old myocardial infarction; Z79.02 Long term (current) use of antithrombotics/antiplatelets; Z79.82 Long term (current) use of aspirin; Z79.899 Other long term (current) drug therapy; Z87.19 Personal history of other diseases of the digestive system; Z95.5 Presence of coronary angioplasty implant and graft; Z88.7 Allergy status to serum and vaccine
CPT/HCPCS: 36415; 36430; 45382; 71045; 74177; 80048; 80053; 81003; 83735; 84484; 85025; 85027; 85610; 85730; 86850; 86900; 86901; 86920; 93005; 96361; 96374; 99285